=== PATIENT | female | born 1970 | race Caucasian/White ===

== ENCOUNTER 2017-02-05 11:13 | Observation (INO) ==
--- NOTE | 2017-02-05 11:19 | Emergency Department Note ---
Disposition Clinical Impression: Diabetes, Sepsis, UTI (urinary tract infection), Upper abdominal pain, History of gastric bypass, Vomiting, Abnormal EKG, Chest pain Disposition: Admitted As Inpatient Referrals: NO,PCP [Non-Partnered Physician] - General Adult HPI - General Stated complaint: chest pain Time Seen by Provider: 02/05/17 11:18 - History of Present Illness HPI Narrative: 46-year-old female reports to the emergency Department with complaints of chest pain. She has had chest pain in the mid chest rating to the jaw. The pain is pressure-like and is not directly associated to exertion. She developed some vomiting earlier today. She became concerned because she remained persistently tachycardic and her blood pressure was elevated even after taking clonidine. There is no history of headache neck stiffness rash convulsion or confusion or trouble moving the arms or legs independently. There is no history of acute back pain. The patient also complains of abdominal pain, she has known history of gastric bypass with previous revisions and complications per patient. There is no history of bloody emesis or stool. No history of rash. She states she gets frequent UTIs but does not describe urinary symptomatology. There is no history of syncope fall coughing up blood or leg swelling or pain. The patient had a cardiac catheterization years ago secondary to concerns for valvular vegetations, that test was negative per patient. She has also had a recent stress test which was reportedly negative. - Related Data Home Medications Medication Instructions Recorded Confirmed Aspirin Enteric Coated [Aspirin EC] 81 mg PO DAILY 05/30/15 02/05/17 Meclizine [Antivert] 12.5 - 25 mg PO BID PRN 05/30/15 02/05/17 Multivitamin/Iron/Folic Acid 2 tab PO DAILY 05/30/15 02/05/17 [Centrum Complete Multivit Tab] Omeprazole [PriLOSEC] 40 mg PO DAILY 05/30/15 02/05/17 Ondansetron [Zofran] 4 mg PO TID PRN 05/30/15 02/05/17 CloNIDine HCl 0.1 mg PO TID 08/23/15 02/05/17 Ergocalciferol (VITAMIN D2) 50,000 unit PO 2XW 10/24/15 02/05/17 [Vitamin D2 (50,000 UNIT)] Sitagliptin Phosphate [Januvia] 50 mg PO DAILY 11/20/15 02/05/17 Tizanidine HCl [Zanaflex] 4 - 8 mg PO QID PRN 11/20/15 02/05/17 Furosemide [Lasix] 40 mg PO TID 07/04/16 02/05/17 Gabapentin [Neurontin] 600 mg PO TID 07/04/16 02/05/17 Hydroxyzine HCl 25 mg PO TID PRN 07/04/16 02/05/17 Cyanocobalamin (Vitamin B-12) 1,000 mcg SL DAILY 07/05/16 02/05/17 [Vitamin B-12] Chlorthalidone 25 mg PO DAILY 09/19/16 02/05/17 Acetaminophen with Codeine 2 tab PO TID PRN 02/05/17 02/05/17 [Acetaminophen-Cod #4 Tablet] Hydrochlorothiazide 25 mg PO DAILY 02/05/17 02/05/17 Iron Polysaccharide Complex 150 mg PO DAILY 02/05/17 02/05/17 [Ferrex 150] Previous Rx's Medication Instructions Recorded Promethazine [Phenergan] 25 mg PO Q6HR PRN #10 tablet 11/21/15 Allergies Allergy/AdvReac Type Severity Reaction Status Date / Time metoclopramide [From Reglan] Allergy Hallucinati Verified 01/18/17 13:52 ng morphine AdvReac Severe Difficulty Verified 01/18/17 13:52 Breathing pregabalin [From Lyrica] AdvReac Severe Confusion Verified 01/18/17 13:52 prochlorperazine AdvReac Severe Hallucinati Verified 01/18/17 13:52 [From Compazine] ons Cyclobenzaprine AdvReac Intermediate INCREASED Verified 01/18/17 13:52 [From Flexeril] HEARTRATE methocarbamol [From Robaxin] AdvReac Intermediate MIGRAINES Verified 01/18/17 13 :52 pioglitazone [From Actos] AdvReac See Verified 01/18/17 13:52 Comments tape Allergy Rash Uncoded 01/01/17 16:57 steroids AdvReac Hypertensio Uncoded 01/01/17 16:57 n All systems ED: reviewed and negative except as stated. Past Medical History - Past Medical History Medical history: Reports: non-contributory Surgical history: Reports: cholecystectomy, herniorrhaphy, other Psychiatric history: Reports: no psych history [employer] history: Reports: polycystic ovary syndrome - Social History Smoking Status: Never smoker Smokeless Tobacco Status: No Alcohol use: Reports: rarely Drug use: Reports: none Physical Exam - General Limitations: no limitations General appearance: alert, in no apparent distress - Head Head exam: atraumatic, normocephalic, normal inspection - Eye Eye exam: Present: normal appearance, PERRL, EOMI. Absent: scleral icterus, conjunctival injection, miosis, mydriasis - ENT ENT exam: normal exam, normal oropharynx, mucous membranes moist, normal external ear exam - Neck Neck exam: Present: normal inspection, full ROM, trachea midline. Absent: meningismus - Chest Chest inspection: Present: symmetric chest wall rise. Absent: tenderness - Respiratory Respiratory exam: Present: normal lung sounds bilaterally. Absent: respiratory distress, accessory muscle use, prolonged expiratory phase - Cardiovascular Cardiovascular exam: Present: normal rhythm, tachycardia - Abdominal Exam Abdominal exam: Present: soft. Absent: distention, guarding, rebound, rigidity , Brown's sign, Rovsing's sign, tenderness at McBurney's Point, ascites Abdominal tenderness: Present: RUQ, LUQ, epigastrium, mild - Extremities Exam Extremities exam: Present: normal inspection, full ROM, normal capillary refill. Absent: tenderness, pedal edema, joint swelling, calf tenderness - Expanded Lower Extremity Exam Lower leg exam: Absent: Homans' sign Neurovascular/Tendon exam: Present: normal capillary refill. Absent: pulse deficit, motor deficit, sensory deficit, tendon deficit, extremity cold to touch , pallor - Back Exam Back exam: Present: normal inspection, full ROM. Absent: tenderness, CVA tenderness (R), CVA tenderness (L), vertebral tenderness - Neurological Exam Neurological exam: Present: alert, oriented X3, CN II-XII intact. Absent: motor sensory deficit - Psychiatric Psychiatric exam: Present: normal affect, normal mood - Skin Skin exam: Present: warm, dry, intact, normal color. Absent: rash, cyanosis, diaphoresis, erythema, pallor, mottled Course Vital Signs Temperature 98.3 F 02/05/17 11:17 Pulse Rate 122 02/05/17 11:17 Respiratory Rate 16 02/05/17 11:17 Blood Pressure 144/89 02/05/17 11:17 O2 Sat by Pulse Oximetry 100 02/05/17 11:17 Temperature 98.3 F 02/05/17 11:17 Pulse Rate 98 02/05/17 15:30 Respiratory Rate 16 02/05/17 15:30 Blood Pressure 156/92 02/05/17 15:30 O2 Sat by Pulse Oximetry 100 02/05/17 15:30 Oxygen Delivery Oxygen Delivery Room Air Medical Decision Making - [facility] Narrative Medical decision making narrative: The patient was complaining of chest pain, EKG shows sinus tachycardia, troponin negative, chest x-ray negative. Aspirin given. IV access was established. IV fluids as well as Zofran Phenergan and Dilaudid were ordered. The patient complained of abdominal pain as well as tachycardia, abdominal CT shows no acute disease, urinalysis shows changes suggestive of infection. The patient has tachycardia, and elevated white count and a source for infection, she meets sepsis criteria. Rocephin was given. Lactic acid negative. Based on the patient's age, multiple complaints, multiple comorbidities including previous gastric bypass with revision and concerns for vomiting, as well as objective findings suggestive of sepsis, I think it would be best to admit the patient to the hospital. I reviewed the case with the hospitalist on-call who has accepted the patient to their care. The patient is currently stable. - Lab Data Lab results reviewed: Yes I reviewed the patient's lab results. Result diagrams: 02/05/17 12:00 02/05/17 12:00 Lab Results 02/05/17 02/05/17 02/05/17 Range/Units 12:00 12:00 12:00 WBC (4.3-11.1) K/mcL RBC (3.82-4.97) M/mcL Hgb (11.5-15.4) g/dL Hct (35.3-44.9) % MCV (83.0-100.0) fL MCH (28.0-33.3) pg MCHC (31.6-35.5) g/dL RDW (11.5-14.5) % Plt Count (140-400) K/mcL MPV (9.4-12.4) fL Immature Gran % (0-4) % Seg Neutrophils % % Lymphocytes % % Monocytes % % Eosinophils % % Basophils % % Neutrophils # (1.6-8.9) K/mcL Lymphocytes # (0.6-4.6) K/mcL Monocytes # (0.0-1.3) K/mcL Eosinophils # (0.0-0.6) K/mcL Basophils # (0.0-0.2) K/mcL PT 11.6 (9.4-12.1) Seconds INR 1.1 APTT 31.1 (26.0-36.0) Seconds D-Dimer (0-500) ng/mLFEU Sodium (136-145) mEq/L Potassium (3.5-4.5) mEq/L Chloride (98-109) mEq/L Carbon Dioxide (19-29) mEq/L BUN (7-20) mg/dL Creatinine (0.57-1.11) mg/dL Est GFR ( Amer) (> 60) Est GFR (Non-Af Amer) (> 60) BUN/Creatinine Ratio (6-26) Glucose (70-99) mg/dL Calculated Osmolality (280-300) Lactic Acid (0.5-2.2) mmol/L Calcium (8.6-10.8) mg/dL Total Bilirubin 0.6 (0.2-1.2) mg/dL Direct Bilirubin 0.3 (0.0-0.5) mg/dL Indirect Bilirubin 0.3 (0.0-1.2) mg/dL AST 53 H (5-34) Units/L ALT 30 (0-55) Units/L Alkaline Phosphatase 98 (38-126) Units/L Troponin I (0-0.03) ng/mL C-Reactive Protein (Less than 5) mg/L B-Natriuretic Peptide 26 (0-100) pg/mL Serum Total Protein 7.6 (6.0-8.3) g/dL Albumin 3.5 (3.5-5.0) g/dL Globulin 4.1 H (2.4-3.5) g/dL Albumin/Globulin Ratio 0.9 L (1.1-2.2) Lipase (8-78) Units/L TSH (0.350-4.840) mcIU/mL Serum , Qual (Negative) Urine Color (Yellow) Urine Clarity (Clear) Urine pH (5.0-8.0) pH Units Ur Specific [place] (1.010-1.025) Urine Protein (Neg-Trace) mg/dL Urine Glucose (UA) (Normal) mg/dL Urine Ketones (Negative) mg/dL Urine Blood (Negative) Urine Nitrite (Negative) Urine Bilirubin (Negative) Urine Urobilinogen (Normal) mg/dL Ur Leukocyte Esterase (Negative) Urine Microscopic RBC (0-3) per hpf Urine Microscopic WBC (0-3) per hpf Ur Squamous Epith Cells (None-Few) per lpf Urine Bacteria (None-Few) per hpf Urine Opiates Screen (Sqwxob=776) ng/mL Ur Barbiturates Screen (Ackins=165) ng/mL Ur Phencyclidine Scrn (Cutoff=25) ng/mL Ur Amphetamines Screen (Ekuljl=4063) ng/mL U Benzodiazepines Scrn (Bymbtk=804) ng/mL Urine Cocaine Screen (Cutoff= 300) ng/mL U Marijuana (THC) Screen (Cutoff = 50) ng/mL 02/05/17 02/05/17 02/05/17 Range/Units 12:00 12:00 12:00 WBC 11.3 H (4.3-11.1) K/mcL RBC 4.40 (3.82-4.97) M/mcL Hgb 12.8 (11.5-15.4) g/dL Hct 38.9 (35.3-44.9) % MCV 88.4 (83.0-100.0) fL MCH 29.1 (28.0-33.3) pg MCHC 32.9 (31.6-35.5) g/dL RDW 13.2 (11.5-14.5) % Plt Count 229 (140-400) K/mcL MPV 9.2 L (9.4-12.4) fL Immature Gran % 0.6 (0-4) % Seg Neutrophils % 82.2 % Lymphocytes % 11.6 % Monocytes % 4.2 % Eosinophils % 0.8 % Basophils % 0.6 % Neutrophils # 9.3 H (1.6-8.9) K/mcL Lymphocytes # 1.3 (0.6-4.6) K/mcL Monocytes # 0.5 (0.0-1.3) K/mcL Eosinophils # 0.1 (0.0-0.6) K/mcL Basophils # 0.1 (0.0-0.2) K/mcL PT (9.4-12.1) Seconds INR APTT (26.0-36.0) Seconds D-Dimer (0-500) ng/mLFEU Sodium 143 (136-145) mEq/L Potassium 3.6 (3.5-4.5) mEq/L Chloride 103 (98-109) mEq/L Carbon Dioxide 26 (19-29) mEq/L BUN 12 (7-20) mg/dL Creatinine 1.06 (0.57-1.11) mg/dL Est GFR ( Amer) > 60 (> 60) Est GFR (Non-Af Amer) 56 L (> 60) BUN/Creatinine Ratio 11 (6-26) Glucose 119 H (70-99) mg/dL Calculated Osmolality 297 (280-300) Lactic Acid (0.5-2.2) mmol/L Calcium 9.3 (8.6-10.8) mg/dL Total Bilirubin (0.2-1.2) mg/dL Direct Bilirubin (0.0-0.5) mg/dL Indirect Bilirubin (0.0-1.2) mg/dL AST (5-34) Units/L ALT (0-55) Units/L Alkaline Phosphatase (38-126) Units/L Troponin I (0-0.03) ng/mL C-Reactive Protein (Less than 5) mg/L B-Natriuretic Peptide (0-100) pg/mL Serum Total Protein (6.0-8.3) g/dL Albumin (3.5-5.0) g/dL Globulin (2.4-3.5) g/dL Albumin/Globulin Ratio (1.1-2.2) Lipase 18 (8-78) Units/L TSH (0.350-4.840) mcIU/mL Serum , Qual (Negative) Urine Color (Yellow) Urine Clarity (Clear) Urine pH (5.0-8.0) pH Units Ur Specific [place] (1.010-1.025) Urine Protein (Neg-Trace) mg/dL Urine Glucose (UA) (Normal) mg/dL Urine Ketones (Negative) mg/dL Urine Blood (Negative) Urine Nitrite (Negative) Urine Bilirubin (Negative) Urine Urobilinogen (Normal) mg/dL Ur Leukocyte Esterase (Negative) Urine Microscopic RBC (0-3) per hpf Urine Microscopic WBC (0-3) per hpf Ur Squamous Epith Cells (None-Few) per lpf Urine Bacteria (None-Few) per hpf Urine Opiates Screen (Vazbrr=668) ng/mL Ur Barbiturates Screen (Xvkpov=184) ng/mL Ur Phencyclidine Scrn (Cutoff=25) ng/mL Ur Amphetamines Screen (Lpxayq=1773) ng/mL U Benzodiazepines Scrn (Crhlwu=033) ng/mL Urine Cocaine Screen (Cutoff= 300) ng/mL U Marijuana (THC) Screen (Cutoff = 50) ng/mL 02/05/17 02/05/17 02/05/17 Range/Units 12:00 12:00 12:00 WBC (4.3-11.1) K/mcL RBC (3.82-4.97) M/mcL Hgb (11.5-15.4) g/dL Hct (35.3-44.9) % MCV (83.0-100.0) fL MCH (28.0-33.3) pg MCHC (31.6-35.5) g/dL RDW (11.5-14.5) % Plt Count (140-400) K/mcL MPV (9.4-12.4) fL Immature Gran % (0-4) % Seg Neutrophils % % Lymphocytes % % Monocytes % % Eosinophils % % Basophils % % Neutrophils # (1.6-8.9) K/mcL Lymphocytes # (0.6-4.6) K/mcL Monocytes # (0.0-1.3) K/mcL Eosinophils # (0.0-0.6) K/mcL Basophils # (0.0-0.2) K/mcL PT (9.4-12.1) Seconds INR APTT (26.0-36.0) Seconds D-Dimer 258 (0-500) ng/mLFEU Sodium (136-145) mEq/L Potassium (3.5-4.5) mEq/L Chloride (98-109) mEq/L Carbon Dioxide (19-29) mEq/L BUN (7-20) mg/dL Creatinine (0.57-1.11) mg/dL Est GFR ( Amer) (> 60) Est GFR (Non-Af Amer) (> 60) BUN/Creatinine Ratio (6-26) Glucose (70-99) mg/dL Calculated Osmolality (280-300) Lactic Acid (0.5-2.2) mmol/L Calcium (8.6-10.8) mg/dL Total Bilirubin (0.2-1.2) mg/dL Direct Bilirubin (0.0-0.5) mg/dL Indirect Bilirubin (0.0-1.2) mg/dL AST (5-34) Units/L ALT (0-55) Units/L Alkaline Phosphatase (38-126) Units/L Troponin I 0.01 (0-0.03) ng/mL C-Reactive Protein 2 (Less than 5) mg/L B-Natriuretic Peptide (0-100) pg/mL Serum Total Protein (6.0-8.3) g/dL Albumin (3.5-5.0) g/dL Globulin (2.4-3.5) g/dL Albumin/Globulin Ratio (1.1-2.2) Lipase (8-78) Units/L TSH 3.443 (0.350-4.840) mcIU/mL Serum , Qual (Negative) Urine Color (Yellow) Urine Clarity (Clear) Urine pH (5.0-8.0) pH Units Ur Specific [place] (1.010-1.025) Urine Protein (Neg-Trace) mg/dL Urine Glucose (UA) (Normal) mg/dL Urine Ketones (Negative) mg/dL Urine Blood (Negative) Urine Nitrite (Negative) Urine Bilirubin (Negative) Urine Urobilinogen (Normal) mg/dL Ur Leukocyte Esterase (Negative) Urine Microscopic RBC (0-3) per hpf Urine Microscopic WBC (0-3) per hpf Ur Squamous Epith Cells (None-Few) per lpf Urine Bacteria (None-Few) per hpf Urine Opiates Screen (Evkgrh=102) ng/mL Ur Barbiturates Screen (Ffufdq=083) ng/mL Ur Phencyclidine Scrn (Cutoff=25) ng/mL Ur Amphetamines Screen (Yqdfmk=9092) ng/mL U Benzodiazepines Scrn (Sszidv=714) ng/mL Urine Cocaine Screen (Cutoff= 300) ng/mL U Marijuana (THC) Screen (Cutoff = 50) ng/mL 02/05/17 02/05/17 02/05/17 Range/Units 12:00 12:26 12:28 WBC (4.3-11.1) K/mcL RBC (3.82-4.97) M/mcL Hgb (11.5-15.4) g/dL Hct (35.3-44.9) % MCV (83.0-100.0) fL MCH (28.0-33.3) pg MCHC (31.6-35.5) g/dL RDW (11.5-14.5) % Plt Count (140-400) K/mcL MPV (9.4-12.4) fL Immature Gran % (0-4) % Seg Neutrophils % % Lymphocytes % % Monocytes % % Eosinophils % % Basophils % % Neutrophils # (1.6-8.9) K/mcL Lymphocytes # (0.6-4.6) K/mcL Monocytes # (0.0-1.3) K/mcL Eosinophils # (0.0-0.6) K/mcL Basophils # (0.0-0.2) K/mcL PT (9.4-12.1) Seconds INR APTT (26.0-36.0) Seconds D-Dimer (0-500) ng/mLFEU Sodium (136-145) mEq/L Potassium (3.5-4.5) mEq/L Chloride (98-109) mEq/L Carbon Dioxide (19-29) mEq/L BUN (7-20) mg/dL Creatinine (0.57-1.11) mg/dL Est GFR ( Amer) (> 60) Est GFR (Non-Af Amer) (> 60) BUN/Creatinine Ratio (6-26) Glucose (70-99) mg/dL Calculated Osmolality (280-300) Lactic Acid 2.2 (0.5-2.2) mmol/L Calcium (8.6-10.8) mg/dL Total Bilirubin (0.2-1.2) mg/dL Direct Bilirubin (0.0-0.5) mg/dL Indirect Bilirubin (0.0-1.2) mg/dL AST (5-34) Units/L ALT (0-55) Units/L Alkaline Phosphatase (38-126) Units/L Troponin I (0-0.03) ng/mL C-Reactive Protein (Less than 5) mg/L B-Natriuretic Peptide (0-100) pg/mL Serum Total Protein (6.0-8.3) g/dL Albumin (3.5-5.0) g/dL Globulin (2.4-3.5) g/dL Albumin/Globulin Ratio (1.1-2.2) Lipase (8-78) Units/L TSH (0.350-4.840) mcIU/mL Serum , Qual (Negative) Urine Color Yellow (Yellow) Urine Clarity Cloudy A (Clear) Urine pH 6.0 (5.0-8.0) pH Units Ur Specific [place] 1.023 (1.010-1.025) Urine Protein Trace (Neg-Trace) mg/dL Urine Glucose (UA) Normal (Normal) mg/dL Urine Ketones Negative (Negative) mg/dL Urine Blood Trace H (Negative) Urine Nitrite Positive A (Negative) Urine Bilirubin Negative (Negative) Urine Urobilinogen 2.0 H (Normal) mg/dL Ur Leukocyte Esterase Large H (Negative) Urine Microscopic RBC 0-3 (0-3) per hpf Urine Microscopic WBC 50-100 H (0-3) per hpf Ur Squamous Epith Cells Few (None-Few) per lpf Urine Bacteria Moderate H (None-Few) per hpf Urine Opiates Screen Negative (Rwyawl=670) ng/mL Ur Barbiturates Screen Negative (Kpxmzt=283) ng/mL Ur Phencyclidine Scrn Negative (Cutoff=25) ng/mL Ur Amphetamines Screen Negative (Okewgi=0479) ng/mL U Benzodiazepines Scrn Negative (Ngfarg=902) ng/mL Urine Cocaine Screen Negative (Cutoff= 300) ng/mL U Marijuana (THC) Screen Negative (Cutoff = 50) ng/mL 02/05/17 Range/Units 12:30 WBC (4.3-11.1) K/mcL RBC (3.82-4.97) M/mcL Hgb (11.5-15.4) g/dL Hct (35.3-44.9) % MCV (83.0-100.0) fL MCH (28.0-33.3) pg MCHC (31.6-35.5) g/dL RDW (11.5-14.5) % Plt Count (140-400) K/mcL MPV (9.4-12.4) fL Immature Gran % (0-4) % Seg Neutrophils % % Lymphocytes % % Monocytes % % Eosinophils % % Basophils % % Neutrophils # (1.6-8.9) K/mcL Lymphocytes # (0.6-4.6) K/mcL Monocytes # (0.0-1.3) K/mcL Eosinophils # (0.0-0.6) K/mcL Basophils # (0.0-0.2) K/mcL PT (9.4-12.1) Seconds INR APTT (26.0-36.0) Seconds D-Dimer (0-500) ng/mLFEU Sodium (136-145) mEq/L Potassium (3.5-4.5) mEq/L Chloride (98-109) mEq/L Carbon Dioxide (19-29) mEq/L BUN (7-20) mg/dL Creatinine (0.57-1.11) mg/dL Est GFR ( Amer) (> 60) Est GFR (Non-Af Amer) (> 60) BUN/Creatinine Ratio (6-26) Glucose (70-99) mg/dL Calculated Osmolality (280-300) Lactic Acid (0.5-2.2) mmol/L Calcium (8.6-10.8) mg/dL Total Bilirubin (0.2-1.2) mg/dL Direct Bilirubin (0.0-0.5) mg/dL Indirect Bilirubin (0.0-1.2) mg/dL AST (5-34) Units/L ALT (0-55) Units/L Alkaline Phosphatase (38-126) Units/L Troponin I (0-0.03) ng/mL C-Reactive Protein (Less than 5) mg/L B-Natriuretic Peptide (0-100) pg/mL Serum Total Protein (6.0-8.3) g/dL Albumin (3.5-5.0) g/dL Globulin (2.4-3.5) g/dL Albumin/Globulin Ratio (1.1-2.2) Lipase (8-78) Units/L TSH (0.350-4.840) mcIU/mL Serum , Qual Negative (Negative) Urine Color (Yellow) Urine Clarity (Clear) Urine pH (5.0-8.0) pH Units Ur Specific [place] (1.010-1.025) Urine Protein (Neg-Trace) mg/dL Urine Glucose (UA) (Normal) mg/dL Urine Ketones (Negative) mg/dL Urine Blood (Negative) Urine Nitrite (Negative) Urine Bilirubin (Negative) Urine Urobilinogen (Normal) mg/dL Ur Leukocyte Esterase (Negative) Urine Microscopic RBC (0-3) per hpf Urine Microscopic WBC (0-3) per hpf Ur Squamous Epith Cells (None-Few) per lpf Urine Bacteria (None-Few) per hpf Urine Opiates Screen (Ayalqp=257) ng/mL Ur Barbiturates Screen (Wawlvp=171) ng/mL Ur Phencyclidine Scrn (Cutoff=25) ng/mL Ur Amphetamines Screen (Imwgnl=2919) ng/mL U Benzodiazepines Scrn (Dkymfg=204) ng/mL Urine Cocaine Screen (Cutoff= 300) ng/mL U Marijuana (THC) Screen (Cutoff = 50) ng/mL - Radiology Data Radiology results reviewed: Yes I reviewed the patient's radiology results.
[2017-02-05] MEDS ORDERED: Ondansetron ODT 4 MG TAB.RAPDIS SL ONE (11:53)
[2017-02-05] MEDS ORDERED: 0.9 % Sodium Chloride 1,000 ML IVC ONE ×2 (11:53→13:40)
[2017-02-05] MEDS ORDERED: Aspirin 325 MG TABLET PO ONE (11:56)
[2017-02-05 12:14] LABS: Basophils # 0.1 K/mcL (0.0-0.2); Basophils % 0.6 %; Eosinophils # 0.1 K/mcL (0.0-0.6); Eosinophils % 0.8 %; Hematocrit 38.9 % (35.3-44.9); Hemoglobin 12.8 g/dL (11.5-15.4); Immature Granulocytes % 0.6 % (0-4); Lymphocytes # 1.3 K/mcL (0.6-4.6); Lymphocytes % 11.6 %; Mean Corpuscular HGB Conc 32.9 g/dL (31.6-35.5); Mean Corpuscular Hemoglobin 29.1 pg (28.0-33.3); Mean Corpuscular Volume 88.4 fL (83.0-100.0); Mean Platelet Volume 9.2 fL (9.4-12.4); Monocytes # 0.5 K/mcL (0.0-1.3); Monocytes % 4.2 %; Neutrophils # 9.3 K/mcL (1.6-8.9); Platelet Count 229 K/mcL (140-400); Red Cell Distribution Width 13.2 % (11.5-14.5); Segmented Neutrophils % 82.2 %
[2017-02-05 12:28] LABS: BUN/Creatinine Ratio 11 (6-26); Blood Urea Nitrogen 12 mg/dL (7-20); Calcium 9.3 mg/dL (8.6-10.8); Carbon Dioxide 26 mEq/L (19-29); Chloride 103 mEq/L (98-109); Glucose 119 mg/dL (70-99); Osmolality,Calculated 297 (280-300); Potassium 3.6 mEq/L (3.5-4.5); Sodium 143 mEq/L (136-145); eGFR For African Americans > 60 (> 60); eGFR For Non-African Americans 56 (> 60)
[2017-02-05 12:29] LABS: Albumin 3.5 g/dL (3.5-5.0); Albumin/Globulin Ratio 0.9 (1.1-2.2); Bilirubin,Direct 0.3 mg/dL (0.0-0.5); Bilirubin,Indirect 0.3 mg/dL (0.0-1.2); Bilirubin,Total 0.6 mg/dL (0.2-1.2); Globulin 4.1 g/dL (2.4-3.5); Total Protein 7.6 g/dL (6.0-8.3)
[2017-02-05 12:39] LABS: Amphetamine Screen,Urine Negative ng/mL (Cutoff=1000); Barbiturate Screen,Urine Negative ng/mL (Cutoff=200); Benzodiazepines Screen,Urine Negative ng/mL (Cutoff=200); Cannabinoid Screen,Urine Negative ng/mL (Cutoff = 50); Cocaine Screen,Urine Negative ng/mL (Cutoff= 300); Opiate Screen,Urine Negative ng/mL (Cutoff=300); Phencyclidine Screen,Urine Negative ng/mL (Cutoff=25)
[2017-02-05 12:46] LABS: Bilirubin,Urine Negative (Negative); Clarity,Urine Cloudy (Clear); Color,Urine Yellow (Yellow); Glucose,Urine (UA) Normal (Normal)
[2017-02-05 12:47] LABS: Blood,Urine Trace (Negative); Ketones,Urine Negative (Negative); Leukocyte Esterase,Urine Large (Negative); Nitrite,Urine Positive (Negative); Protein,Urine Trace mg/dL (Neg-Trace); Specific Gravity,Urine 1.023 (1.010-1.025)
[2017-02-05 12:59] LABS: Squamous Epithelial Cell,Urine Few per lpf (None-Few); WBC,Urine 50-100 per hpf (0-3)
[2017-02-05 13:00] LABS: RBC,Urine 0-3 per hpf (0-3)
[2017-02-05 13:01] LABS: Bacteria,Urine Moderate per hpf (None-Few)
[2017-02-05 13:15] LABS: Thyroid Stimulating Hormone 3.443 mcIU/mL (0.350-4.840)
[2017-02-05] MEDS ORDERED: Lidocaine -MPF 1% 2 ML VIAL ID PRN (13:56)
[2017-02-05 14:23] LABS: INR 1.1; Prothrombin Time 11.6 Seconds (9.4-12.1)
[2017-02-05 14:26] LABS: Activated Partial Thrombo Time 31.1 Seconds (26.0-36.0)
[2017-02-05] MEDS ORDERED: *HR* Promethazine 25 MG/ML VIAL IVP ONE (15:02)
[2017-02-05] MEDS ORDERED: *HR* HYDROmorphone (PF) 1 MG/ML SYRINGE IVP ONE (15:02)
[2017-02-05] MEDS ORDERED: Acetaminophen 325 MG TABLET PO PRN (17:47)
[2017-02-05] MEDS ORDERED: *HR* HYDROcodone/Acet 5/325 mg TABLET PO PRN (17:47)
[2017-02-05] MEDS ORDERED: Naloxone 0.4 MG/ML INJ IVP PRN (17:47)
[2017-02-05] MEDS ORDERED: D5% in Water 1,000 ML IVC PRN (17:58)
[2017-02-05] MEDS ORDERED: *HR* Dextrose 50 % in Water (Syg) 50 ML SYRINGE IVP PRN (17:58)
[2017-02-05] MEDS ORDERED: Dextrose Gel 15 GM PO PRN ×2 (17:58)
--- NOTE | 2017-02-05 18:25 | Internal Med History&Physical ---
Date of Encounter: 02/05/17 Time of Encounter: 18:18 Assessment and Plan (1) UTI (urinary tract infection) Current visit: Yes Status: Acute Patient presented with abdominal pain, nausea, vomiting, tachycardia, and urinary frequency. Patient reports she's had 6 UTIs since September and was just treated for one less than 3 weeks ago. She reports she's usually treated with bactrim, and was treated with bactrim for her last episode as well. Will treat with Cefepime IVPB BID Qualifiers: Urinary tract infection type: acute cystitis Hematuria presence: with hematuria Qualified Code(s): N30.01 - Acute cystitis with hematuria (2) Chest pain Current visit: No Status: Acute Patient reports heart has been racing the last few days and this morning she developed chest heaviness radiating to her left neck and jaw. Patient reports she has these symptoms with infections. She has a history of PE and non- ischemic cardiomyopathy. She does have a UTI, and symptoms may be related to her infection, but will rule out ACS. Troponin negative at 0.01. D-dimer normal at 258. EKG without ischemic changes continuous surveillance monitor Serial troponins echocardiogram in the [facility] Qualifiers: Chest pain type: precordial pain Qualified Code(s): R07.2 - Precordial pain (3) Hypertension Current visit: No Status: Acute Blood pressure has ranged from 140s-170s since arrival. Hold her diuretics as we are giving her fluids for infection. Continue home dose of clonidine. Qualifiers: Hypertension type: essential hypertension Qualified Code(s): I10 - Essential (primary) hypertension (4) Nausea Current visit: No Status: Acute Patient with chronic nausea since her gastric bypass. zofran prn for nausea phenergan prn for nausea not controlled by zofran (5) History of gastric bypass Current visit: Yes Status: Acute She had complication of bowel obstruction requiring revision in 2013. (6) DVT prophylaxis Current visit: No Status: Acute anti-embolic stockings lovenox 40mg SQ daily Internal Medicine - H&P: HPI Chief complaint: palpitations, chest pain Admitted From: Emergency Dept Plans for Post Hospital Care: Home History of present illness: Ms. Mcdonald is a 46 year old female with hypertension, type 2 diabetes, fibromyalgia, fatty liver, non-ischemic cardiomyopathy, gastric bypass surgery with revision in 2013, presented to the emergency department to day with complaints of feeling her heart racing and chest pain. She reports her heart has been racing on and off over the last few days and she has noted that her blood pressure has been high. Today she developed chest pain she describes as heaviness, constant, radiating to her left neck and jaw. She also reports some mild dizziness, nausea and vomiting and abdominal pain. She has a mild headache. She denies any cough, fever, chills, or shortness of breath. She denies any diarrhea, and reports last bowel movement this morning. She denies dysuria but reports frequency. Evaluation in the ER included CT of the abdomen/ pelvis which showed no acute abnormality in the abdomen or pelvis. CXR showed no acute process. Troponin negative at 0.01, D-dimer normal at 258, BNP normal at 26, lipase normal at 18. WBC mildly elevated to 11.3. She was tachycardic with HR in the low 100s. Lactate mildly elevated to 2.2. UA was consistent with infection. On exam, patient alert and oriented, in no acute distress. Heart had regular rate and rhythm, lungs clear bilaterally to auscultation. She has some mild tenderness to the RUQ and right flank. Past Med Surg Social Fam HX - Past Medical History Medical history: cardiomyopathy, diabetes, fibromyalgia, hypertension, liver disease (fatty liver), pulmonary embolus Psychiatric history: no psych history - Past Surgical History Surgical History: cholecystectomy, herniorrhaphy, other, bariatric surgery ( gastric bypass, with revision in 2013) - Social History Smoking Status: Never smoker Smokeless Tobacco Status: No Alcohol use: rarely Drug use: none - Family History Father Hx Family Cardiac Disorders: Yes (HTN) Hx Family Respiratory Disorders: Yes (COPD) Grandfather Hx Family Cardiac Disorders: Yes (HTN, BYPASS) Grandmother Hx Family Cardiac Disorders: Yes (CVA) Hx Family Neuromuscular Disorders: Yes (CVA) Hx Family Neurologic Disorders: Yes (CVA) Internal Medicine - H&P: Meds Aspirin Enteric Coated [Aspirin EC] 81 mg PO DAILY 05/30/15 [History] Meclizine [Antivert] 12.5 - 25 mg PO BID PRN 05/30/15 [History] Multivitamin/Iron/Folic Acid [Centrum Complete Multivit Tab] 2 tab PO DAILY [History] Omeprazole [PriLOSEC] 40 mg PO DAILY 05/30/15 [History] Ondansetron [Zofran] 4 mg PO TID PRN 05/30/15 [History] CloNIDine HCl 0.1 mg PO TID 08/23/15 [History] Ergocalciferol (VITAMIN D2) [Vitamin D2 (50,000 UNIT)] 50,000 unit PO 2XW [History] Sitagliptin Phosphate [Januvia] 50 mg PO DAILY 11/20/15 [History] Tizanidine HCl [Zanaflex] 4 - 8 mg PO QID PRN 11/20/15 [History] Promethazine [Phenergan] 25 mg PO Q6HR PRN #10 tablet 11/21/15 [Rx] Furosemide [Lasix] 40 mg PO TID 07/04/16 [History] Gabapentin [Neurontin] 600 mg PO TID 07/04/16 [History] Hydroxyzine HCl 25 mg PO TID PRN 07/04/16 [History] Cyanocobalamin (Vitamin B-12) [Vitamin B-12] 1,000 mcg SL DAILY 07/05/16 [ History] Chlorthalidone 25 mg PO DAILY 09/19/16 [History] Acetaminophen with Codeine [Acetaminophen-Cod #4 Tablet] 2 tab PO TID PRN [History] Hydrochlorothiazide 25 mg PO DAILY 02/05/17 [History] Iron Polysaccharide Complex [Ferrex 150] 150 mg PO DAILY 02/05/17 [History] Allergies metoclopramide [From Reglan] Allergy (Verified 01/18/17 13:52) Hallucinating morphine Adverse Reaction (Severe, Verified 01/18/17 13:52) Difficulty Breathing SHORTNESS OF BREATH pregabalin [From Lyrica] Adverse Reaction (Severe, Verified 01/18/17 13:52) Confusion prochlorperazine [From Compazine] Adverse Reaction (Severe, Verified 01/18/17 13 :52) Hallucinations Cyclobenzaprine [From Flexeril] Adverse Reaction (Intermediate, Verified 13:52) INCREASED HEARTRATE methocarbamol [From Robaxin] Adverse Reaction (Intermediate, Verified 01/18/17 13:52) MIGRAINES pioglitazone [From Actos] Adverse Reaction (Verified 01/18/17 13:52) See Comments unknown tape Allergy (Uncoded 01/01/17 16:57) Rash steroids Adverse Reaction (Uncoded 01/01/17 16:57) Hypertension All Systems PM: A 10-system review of systems was performed and is negative for pertinent findings except as documented above in the HPI. - Constitutional Constitutional: no chills, no fever(s), no night sweats - EENT Eyes: no change in vision, no discharge, no pain, no photophobia Ears: no ear discharge, no ear pain, no tinnitus Nose, mouth and throat: no dysphagia, no nasal discharge, no neck pain, no sore throat - Cardiovascular Cardiovascular ROS IM: chest pain, palpitations, no diaphoresis, no dyspnea, no lightheadedness, no syncope - Respiratory Respiratory: no cough, no dyspnea, no wheezing, no excessive phlegm production - Gastrointestinal Gastrointestinal: abdominal pain, nausea, vomiting, no diarrhea, no hematemesis , no hematochezia, no melena - Genitourinary Genitourinary: urinary frequency, no change in urinary stream, no dysuria, no flank pain, no hematuria - Musculoskeletal Musculoskeletal ROS IM: no numbness, no tingling - Integumentary Integumentary IM: no rash, no unusual bruising - Neurological Neurological ROS: no confusion, no convulsions, no focal weakness, no numbness, no tingling, no tremor(s) - Hematologic/Lymphatic Hematologic/Lymphatic: no easy bruising - Constitutional Vitals: Temp Pulse Resp BP Pulse Ox 98.2 F 95 16 150/92 93 02/05/17 17:04 02/05/17 17:04 02/05/17 17:04 02/05/17 17:04 02/05/17 17:04 General appearance: Present: A&O X 3, pleasant, no acute distress, obese - Head Head exam: Present: atraumatic, normocephalic - Eye Eye exam: Present: PERRL, conjuntiva pink, sclera anicteric Pupils: Present: PERRL - Neck Neck exam general surgery: Present: supple, trachea midline. Absent: lymphadenopathy - Respiratory Respiratory exam: Present: CTAB. Absent: accessory muscle use, rales, rhonchi, wheezes - Cardiovascular Cardiovascular exam: Present: RRR, +S1, +S2. Absent: diastolic murmur, gallop, rubs, systolic murmur - GI/Abdominal GI/Abdominal exam: Present: normal bowel sounds, soft, tenderness (RUQ), no peritoneal signs. Absent: distended - Extremities Exam Extremities exam: Present: warm, radial pulses palpable and symetrical. Absent : calf tenderness, cyanotic, pedal edema - Back Exam Back exam: Present: CVA tenderness (R) - Neurological Exam Neurological exam: Present: CN II-XII intact, oriented X3, no focal deficits. Absent: facial droop, speech deficit - Skin Skin exam: Present: dry, intact Internal Med - H&P Results - Labs CBC & Chem 7: 02/05/17 12:00 02/05/17 12:00 Labs: All Lab Results (24 Hours) 02/05/17 02/05/17 02/05/17 Range/Units 12:00 12:00 12:00 WBC (4.3-11.1) K/mcL RBC (3.82-4.97) M/mcL Hgb (11.5-15.4) g/dL Hct (35.3-44.9) % MCV (83.0-100.0) fL MCH (28.0-33.3) pg MCHC (31.6-35.5) g/dL RDW (11.5-14.5) % Plt Count (140-400) K/mcL MPV (9.4-12.4) fL Immature Gran % (0-4) % Seg Neutrophils % % Lymphocytes % % Monocytes % % Eosinophils % % Basophils % % Neutrophils # (1.6-8.9) K/mcL Lymphocytes # (0.6-4.6) K/mcL Monocytes # (0.0-1.3) K/mcL Eosinophils # (0.0-0.6) K/mcL Basophils # (0.0-0.2) K/mcL PT 11.6 (9.4-12.1) Seconds INR 1.1 APTT 31.1 (26.0-36.0) Seconds D-Dimer (0-500) ng/mLFEU Sodium (136-145) mEq/L Potassium (3.5-4.5) mEq/L Chloride (98-109) mEq/L Carbon Dioxide (19-29) mEq/L BUN (7-20) mg/dL Creatinine (0.57-1.11) mg/dL Est GFR ( Amer) (> 60) Est GFR (Non-Af Amer) (> 60) BUN/Creatinine Ratio (6-26) Glucose (70-99) mg/dL Calculated Osmolality (280-300) Lactic Acid (0.5-2.2) mmol/L Calcium (8.6-10.8) mg/dL Total Bilirubin 0.6 (0.2-1.2) mg/dL Direct Bilirubin 0.3 (0.0-0.5) mg/dL Indirect Bilirubin 0.3 (0.0-1.2) mg/dL AST 53 H (5-34) Units/L ALT 30 (0-55) Units/L Alkaline Phosphatase 98 (38-126) Units/L Troponin I (0-0.03) ng/mL C-Reactive Protein (Less than 5) mg/L B-Natriuretic Peptide 26 (0-100) pg/mL Serum Total Protein 7.6 (6.0-8.3) g/dL Albumin 3.5 (3.5-5.0) g/dL Globulin 4.1 H (2.4-3.5) g/dL Albumin/Globulin Ratio 0.9 L (1.1-2.2) Lipase (8-78) Units/L TSH (0.350-4.840) mcIU/mL Serum , Qual (Negative) Urine Color (Yellow) Urine Clarity (Clear) Urine pH (5.0-8.0) pH Units Ur Specific [place] (1.010-1.025) Urine Protein (Neg-Trace) mg/dL Urine Glucose (UA) (Normal) mg/dL Urine Ketones (Negative) mg/dL Urine Blood (Negative) Urine Nitrite (Negative) Urine Bilirubin (Negative) Urine Urobilinogen (Normal) mg/dL Ur Leukocyte Esterase (Negative) Urine Microscopic RBC (0-3) per hpf Urine Microscopic WBC (0-3) per hpf Ur Squamous Epith Cells (None-Few) per lpf Urine Bacteria (None-Few) per hpf Urine Opiates Screen (Swhewv=225) ng/mL Ur Barbiturates Screen (Vbhhfy=024) ng/mL Ur Phencyclidine Scrn (Cutoff=25) ng/mL Ur Amphetamines Screen (Yrzblq=2132) ng/mL U Benzodiazepines Scrn (Kkolvr=652) ng/mL Urine Cocaine Screen (Cutoff= 300) ng/mL U Marijuana (THC) Screen (Cutoff = 50) ng/mL 02/05/17 02/05/17 02/05/17 Range/Units 12:00 12:00 12:00 WBC 11.3 H (4.3-11.1) K/mcL RBC 4.40 (3.82-4.97) M/mcL Hgb 12.8 (11.5-15.4) g/dL Hct 38.9 (35.3-44.9) % MCV 88.4 (83.0-100.0) fL MCH 29.1 (28.0-33.3) pg MCHC 32.9 (31.6-35.5) g/dL RDW 13.2 (11.5-14.5) % Plt Count 229 (140-400) K/mcL MPV 9.2 L (9.4-12.4) fL Immature Gran % 0.6 (0-4) % Seg Neutrophils % 82.2 % Lymphocytes % 11.6 % Monocytes % 4.2 % Eosinophils % 0.8 % Basophils % 0.6 % Neutrophils # 9.3 H (1.6-8.9) K/mcL Lymphocytes # 1.3 (0.6-4.6) K/mcL Monocytes # 0.5 (0.0-1.3) K/mcL Eosinophils # 0.1 (0.0-0.6) K/mcL Basophils # 0.1 (0.0-0.2) K/mcL PT (9.4-12.1) Seconds INR APTT (26.0-36.0) Seconds D-Dimer (0-500) ng/mLFEU Sodium 143 (136-145) mEq/L Potassium 3.6 (3.5-4.5) mEq/L Chloride 103 (98-109) mEq/L Carbon Dioxide 26 (19-29) mEq/L BUN 12 (7-20) mg/dL Creatinine 1.06 (0.57-1.11) mg/dL Est GFR ( Amer) > 60 (> 60) Est GFR (Non-Af Amer) 56 L (> 60) BUN/Creatinine Ratio 11 (6-26) Glucose 119 H (70-99) mg/dL Calculated Osmolality 297 (280-300) Lactic Acid (0.5-2.2) mmol/L Calcium 9.3 (8.6-10.8) mg/dL Total Bilirubin (0.2-1.2) mg/dL Direct Bilirubin (0.0-0.5) mg/dL Indirect Bilirubin (0.0-1.2) mg/dL AST (5-34) Units/L ALT (0-55) Units/L Alkaline Phosphatase (38-126) Units/L Troponin I (0-0.03) ng/mL C-Reactive Protein (Less than 5) mg/L B-Natriuretic Peptide (0-100) pg/mL Serum Total Protein (6.0-8.3) g/dL Albumin (3.5-5.0) g/dL Globulin (2.4-3.5) g/dL Albumin/Globulin Ratio (1.1-2.2) Lipase 18 (8-78) Units/L TSH (0.350-4.840) mcIU/mL Serum , Qual (Negative) Urine Color (Yellow) Urine Clarity (Clear) Urine pH (5.0-8.0) pH Units Ur Specific [place] (1.010-1.025) Urine Protein (Neg-Trace) mg/dL Urine Glucose (UA) (Normal) mg/dL Urine Ketones (Negative) mg/dL Urine Blood (Negative) Urine Nitrite (Negative) Urine Bilirubin (Negative) Urine Urobilinogen (Normal) mg/dL Ur Leukocyte Esterase (Negative) Urine Microscopic RBC (0-3) per hpf Urine Microscopic WBC (0-3) per hpf Ur Squamous Epith Cells (None-Few) per lpf Urine Bacteria (None-Few) per hpf Urine Opiates Screen (Yftboz=127) ng/mL Ur Barbiturates Screen (Msxtfj=616) ng/mL Ur Phencyclidine Scrn (Cutoff=25) ng/mL Ur Amphetamines Screen (Shpzly=2665) ng/mL U Benzodiazepines Scrn (Amcwgb=715) ng/mL Urine Cocaine Screen (Cutoff= 300) ng/mL U Marijuana (THC) Screen (Cutoff = 50) ng/mL 02/05/17 02/05/17 02/05/17 Range/Units 12:00 12:00 12:00 WBC (4.3-11.1) K/mcL RBC (3.82-4.97) M/mcL Hgb (11.5-15.4) g/dL Hct (35.3-44.9) % MCV (83.0-100.0) fL MCH (28.0-33.3) pg MCHC (31.6-35.5) g/dL RDW (11.5-14.5) % Plt Count (140-400) K/mcL MPV (9.4-12.4) fL Immature Gran % (0-4) % Seg Neutrophils % % Lymphocytes % % Monocytes % % Eosinophils % % Basophils % % Neutrophils # (1.6-8.9) K/mcL Lymphocytes # (0.6-4.6) K/mcL Monocytes # (0.0-1.3) K/mcL Eosinophils # (0.0-0.6) K/mcL Basophils # (0.0-0.2) K/mcL PT (9.4-12.1) Seconds INR APTT (26.0-36.0) Seconds D-Dimer 258 (0-500) ng/mLFEU Sodium (136-145) mEq/L Potassium (3.5-4.5) mEq/L Chloride (98-109) mEq/L Carbon Dioxide (19-29) mEq/L BUN (7-20) mg/dL Creatinine (0.57-1.11) mg/dL Est GFR ( Amer) (> 60) Est GFR (Non-Af Amer) (> 60) BUN/Creatinine Ratio (6-26) Glucose (70-99) mg/dL Calculated Osmolality (280-300) Lactic Acid (0.5-2.2) mmol/L Calcium (8.6-10.8) mg/dL Total Bilirubin (0.2-1.2) mg/dL Direct Bilirubin (0.0-0.5) mg/dL Indirect Bilirubin (0.0-1.2) mg/dL AST (5-34) Units/L ALT (0-55) Units/L Alkaline Phosphatase (38-126) Units/L Troponin I 0.01 (0-0.03) ng/mL C-Reactive Protein 2 (Less than 5) mg/L B-Natriuretic Peptide (0-100) pg/mL Serum Total Protein (6.0-8.3) g/dL Albumin (3.5-5.0) g/dL Globulin (2.4-3.5) g/dL Albumin/Globulin Ratio (1.1-2.2) Lipase (8-78) Units/L TSH 3.443 (0.350-4.840) mcIU/mL Serum , Qual (Negative) Urine Color (Yellow) Urine Clarity (Clear) Urine pH (5.0-8.0) pH Units Ur Specific [place] (1.010-1.025) Urine Protein (Neg-Trace) mg/dL Urine Glucose (UA) (Normal) mg/dL Urine Ketones (Negative) mg/dL Urine Blood (Negative) Urine Nitrite (Negative) Urine Bilirubin (Negative) Urine Urobilinogen (Normal) mg/dL Ur Leukocyte Esterase (Negative) Urine Microscopic RBC (0-3) per hpf Urine Microscopic WBC (0-3) per hpf Ur Squamous Epith Cells (None-Few) per lpf Urine Bacteria (None-Few) per hpf Urine Opiates Screen (Celfrq=526) ng/mL Ur Barbiturates Screen (Hkielx=731) ng/mL Ur Phencyclidine Scrn (Cutoff=25) ng/mL Ur Amphetamines Screen (Xmzwvo=0603) ng/mL U Benzodiazepines Scrn (Miroad=600) ng/mL Urine Cocaine Screen (Cutoff= 300) ng/mL U Marijuana (THC) Screen (Cutoff = 50) ng/mL 02/05/17 02/05/17 02/05/17 Range/Units 12:00 12:26 12:28 WBC (4.3-11.1) K/mcL RBC (3.82-4.97) M/mcL Hgb (11.5-15.4) g/dL Hct (35.3-44.9) % MCV (83.0-100.0) fL MCH (28.0-33.3) pg MCHC (31.6-35.5) g/dL RDW (11.5-14.5) % Plt Count (140-400) K/mcL MPV (9.4-12.4) fL Immature Gran % (0-4) % Seg Neutrophils % % Lymphocytes % % Monocytes % % Eosinophils % % Basophils % % Neutrophils # (1.6-8.9) K/mcL Lymphocytes # (0.6-4.6) K/mcL Monocytes # (0.0-1.3) K/mcL Eosinophils # (0.0-0.6) K/mcL Basophils # (0.0-0.2) K/mcL PT (9.4-12.1) Seconds INR APTT (26.0-36.0) Seconds D-Dimer (0-500) ng/mLFEU Sodium (136-145) mEq/L Potassium (3.5-4.5) mEq/L Chloride (98-109) mEq/L Carbon Dioxide (19-29) mEq/L BUN (7-20) mg/dL Creatinine (0.57-1.11) mg/dL Est GFR ( Amer) (> 60) Est GFR (Non-Af Amer) (> 60) BUN/Creatinine Ratio (6-26) Glucose (70-99) mg/dL Calculated Osmolality (280-300) Lactic Acid 2.2 (0.5-2.2) mmol/L Calcium (8.6-10.8) mg/dL Total Bilirubin (0.2-1.2) mg/dL Direct Bilirubin (0.0-0.5) mg/dL Indirect Bilirubin (0.0-1.2) mg/dL AST (5-34) Units/L ALT (0-55) Units/L Alkaline Phosphatase (38-126) Units/L Troponin I (0-0.03) ng/mL C-Reactive Protein (Less than 5) mg/L B-Natriuretic Peptide (0-100) pg/mL Serum Total Protein (6.0-8.3) g/dL Albumin (3.5-5.0) g/dL Globulin (2.4-3.5) g/dL Albumin/Globulin Ratio (1.1-2.2) Lipase (8-78) Units/L TSH (0.350-4.840) mcIU/mL Serum , Qual (Negative) Urine Color Yellow (Yellow) Urine Clarity Cloudy A (Clear) Urine pH 6.0 (5.0-8.0) pH Units Ur Specific [place] 1.023 (1.010-1.025) Urine Protein Trace (Neg-Trace) mg/dL Urine Glucose (UA) Normal (Normal) mg/dL Urine Ketones Negative (Negative) mg/dL Urine Blood Trace H (Negative) Urine Nitrite Positive A (Negative) Urine Bilirubin Negative (Negative) Urine Urobilinogen 2.0 H (Normal) mg/dL Ur Leukocyte Esterase Large H (Negative) Urine Microscopic RBC 0-3 (0-3) per hpf Urine Microscopic WBC 50-100 H (0-3) per hpf Ur Squamous Epith Cells Few (None-Few) per lpf Urine Bacteria Moderate H (None-Few) per hpf Urine Opiates Screen Negative (Jhovim=102) ng/mL Ur Barbiturates Screen Negative (Xupbtc=409) ng/mL Ur Phencyclidine Scrn Negative (Cutoff=25) ng/mL Ur Amphetamines Screen Negative (Rdohjt=2689) ng/mL U Benzodiazepines Scrn Negative (Gftwca=203) ng/mL Urine Cocaine Screen Negative (Cutoff= 300) ng/mL U Marijuana (THC) Screen Negative (Cutoff = 50) ng/mL 02/05/17 Range/Units 12:30 WBC (4.3-11.1) K/mcL RBC (3.82-4.97) M/mcL Hgb (11.5-15.4) g/dL Hct (35.3-44.9) % MCV (83.0-100.0) fL MCH (28.0-33.3) pg MCHC (31.6-35.5) g/dL RDW (11.5-14.5) % Plt Count (140-400) K/mcL MPV (9.4-12.4) fL Immature Gran % (0-4) % Seg Neutrophils % % Lymphocytes % % Monocytes % % Eosinophils % % Basophils % % Neutrophils # (1.6-8.9) K/mcL Lymphocytes # (0.6-4.6) K/mcL Monocytes # (0.0-1.3) K/mcL Eosinophils # (0.0-0.6) K/mcL Basophils # (0.0-0.2) K/mcL PT (9.4-12.1) Seconds INR APTT (26.0-36.0) Seconds D-Dimer (0-500) ng/mLFEU Sodium (136-145) mEq/L Potassium (3.5-4.5) mEq/L Chloride (98-109) mEq/L Carbon Dioxide (19-29) mEq/L BUN (7-20) mg/dL Creatinine (0.57-1.11) mg/dL Est GFR ( Amer) (> 60) Est GFR (Non-Af Amer) (> 60) BUN/Creatinine Ratio (6-26) Glucose (70-99) mg/dL Calculated Osmolality (280-300) Lactic Acid (0.5-2.2) mmol/L Calcium (8.6-10.8) mg/dL Total Bilirubin (0.2-1.2) mg/dL Direct Bilirubin (0.0-0.5) mg/dL Indirect Bilirubin (0.0-1.2) mg/dL AST (5-34) Units/L ALT (0-55) Units/L Alkaline Phosphatase (38-126) Units/L Troponin I (0-0.03) ng/mL C-Reactive Protein (Less than 5) mg/L B-Natriuretic Peptide (0-100) pg/mL Serum Total Protein (6.0-8.3) g/dL Albumin (3.5-5.0) g/dL Globulin (2.4-3.5) g/dL Albumin/Globulin Ratio (1.1-2.2) Lipase (8-78) Units/L TSH (0.350-4.840) mcIU/mL Serum , Qual Negative (Negative) Urine Color (Yellow) Urine Clarity (Clear) Urine pH (5.0-8.0) pH Units Ur Specific [place] (1.010-1.025) Urine Protein (Neg-Trace) mg/dL Urine Glucose (UA) (Normal) mg/dL Urine Ketones (Negative) mg/dL Urine Blood (Negative) Urine Nitrite (Negative) Urine Bilirubin (Negative) Urine Urobilinogen (Normal) mg/dL Ur Leukocyte Esterase (Negative) Urine Microscopic RBC (0-3) per hpf Urine Microscopic WBC (0-3) per hpf Ur Squamous Epith Cells (None-Few) per lpf Urine Bacteria (None-Few) per hpf Urine Opiates Screen (Ikbxxv=053) ng/mL Ur Barbiturates Screen (Sfqocx=733) ng/mL Ur Phencyclidine Scrn (Cutoff=25) ng/mL Ur Amphetamines Screen (Lxmqnc=0052) ng/mL U Benzodiazepines Scrn (Bairge=080) ng/mL Urine Cocaine Screen (Cutoff= 300) ng/mL U Marijuana (THC) Screen (Cutoff = 50) ng/mL - Diagnostic Studies Chest x-ray Additional comments: Chest X-Ray 02/05/17 11:20 IMPRESSION: No acute process. D/ / Garth Apple MD / Garth Apple MD Interpreting Provider: Garth Apple MD CT scan - abdomen Additional comments: Abdomen/Pelvis CT 02/05/17 11:54 IMPRESSION: 1. No acute abnormality in the abdomen or pelvis. 2. Status post gastric bypass surgery without complication. 3. Diffuse hepatic steatosis for 4. Status post cholecystectomy. D/ / John Mata MD / John Mata MD Interpreting Provider: John Mata MD
--- NOTE | 2017-02-05 18:31 | Event Note ---
Date of Encounter: 02/05/17 Time of Encounter: 18:29 Patient seen and examined with nurse practitioner. Agree with assessment and plan. Urine tract infection. Received course of Bactrim 3 weeks ago for UTI. We will keep patient on cefepime. await urine Culture, hydation.
[2017-02-05] MEDS: cloNIDine HCl 0.1 MG TABLET PO SCH ×2 (19:01→20:35)
[2017-02-05] MEDS: Gabapentin 300 MG CAPSULE PO SCH ×2 (19:02→20:35)
[2017-02-05] MEDS: 0.9 % Sodium Chloride 1,000 ML IVC SCH (19:17)
[2017-02-05] MEDS: Cefepime HCl 1,000 MG in D5% in Water (Mini-Bag+) 100 ML IVPB SCH (19:18)
[2017-02-05] MEDS: *HR* HYDROmorphone (PF) 1 MG/ML SYRINGE IVP PRN (19:35)
[2017-02-05] MEDS ORDERED: Furosemide 40 MG TABLET PO SCH (21:00)
[2017-02-05] MEDS: Insulin LISPRO 300 UNITS/3 ML VIAL SQ SCH (22:59)
[2017-02-05] MEDS: tiZANidine 4 MG TABLET PO PRN (23:04)
[2017-02-06] MEDS: *HR* HYDROmorphone (PF) 1 MG/ML SYRINGE IVP PRN ×6 (00:17→22:01)
[2017-02-06] MEDS: Ondansetron ODT 4 MG TAB.RAPDIS SL PRN ×3 (00:18→22:00)
[2017-02-06] MEDS: tiZANidine 4 MG TABLET PO PRN ×3 (04:07→22:00)
[2017-02-06 04:53] LABS: Basophils # 0.1 K/mcL (0.0-0.2); Basophils % 0.6 %; Eosinophils # 0.2 K/mcL (0.0-0.6); Eosinophils % 2.4 %; Hematocrit 34.9 % (35.3-44.9); Immature Granulocytes % 0.9 % (0-4); Lymphocytes # 2.6 K/mcL (0.6-4.6); Lymphocytes % 32.3 %; Mean Corpuscular HGB Conc 31.8 g/dL (31.6-35.5); Mean Corpuscular Hemoglobin 29.4 pg (28.0-33.3); Mean Corpuscular Volume 92.3 fL (83.0-100.0); Mean Platelet Volume 10.2 fL (9.4-12.4); Monocytes # 0.4 K/mcL (0.0-1.3); Monocytes % 4.7 %; Neutrophils # 4.7 K/mcL (1.6-8.9); Platelet Count 217 K/mcL (140-400); Red Blood Count 3.78 M/mcL (3.82-4.97); Red Cell Distribution Width 13.3 % (11.5-14.5); Segmented Neutrophils % 59.1 %
[2017-02-06 04:58] LABS: BUN/Creatinine Ratio 10 (6-26); Blood Urea Nitrogen 8 mg/dL (7-20); Calcium 8.4 mg/dL (8.6-10.8); Carbon Dioxide 26 mEq/L (19-29); Chloride 105 mEq/L (98-109); Glucose 114 mg/dL (70-99); Osmolality,Calculated 295 (280-300); Potassium 3.2 mEq/L (3.5-4.5); Sodium 143 mEq/L (136-145); eGFR For African Americans > 60 (> 60); eGFR For Non-African Americans > 60 (> 60)
[2017-02-06 05:00] LABS: Hemoglobin 11.1 g/dL (11.5-15.4)
[2017-02-06] MEDS: Cefepime HCl 1,000 MG in D5% in Water (Mini-Bag+) 100 ML IVPB SCH ×2 (06:10→17:57)
[2017-02-06] MEDS: 0.9 % Sodium Chloride 1,000 ML IVC SCH ×3 (06:12→23:00)
[2017-02-06] MEDS: *HR* Enoxaparin 40 MG/0.4 ML SYRINGE SQ SCH (06:17)
[2017-02-06] MEDS: Insulin LISPRO 300 UNITS/3 ML VIAL SQ SCH ×4 (07:32→22:03)
[2017-02-06] MEDS: Aspirin Enteric Coated 81 MG Tablet PO SCH (08:29)
[2017-02-06] MEDS: Gabapentin 300 MG CAPSULE PO SCH ×3 (08:29→20:18)
[2017-02-06] MEDS ORDERED: Potassium Chloride Elixir 20 MEQ/15 ML UDC PO ONE (08:29)
[2017-02-06] MEDS: Iron Polysaccharide Complex 150 MG CAPSULE PO SCH (08:29)
[2017-02-06] MEDS: Cyanocobalamin (B-12) 1,000 MCG TABLET PO SCH (08:30)
[2017-02-06] MEDS: cloNIDine HCl 0.1 MG TABLET PO SCH ×3 (08:30→20:18)
[2017-02-06] MEDS ORDERED: hydroCHLOROthiazide 25 MG TABLET PO SCH (09:00)
--- NOTE | 2017-02-06 13:03 | ECHO - Doppler Report ---
Echocardiogram Name: Janett Mcdonald Date of Study: 02/06/2017 Date: 1970 Ht: 64.0 in Medical Record#: [id number] Age: 47 Wt: 195.0 lb Gender: Female BSA: 1.94 Order #: [id number] Location: [facility] Room #: [id number] Reading Physician: Alexander Beard MD, [facility] Rn Bariatric: José Miguel Gentile RDCS Ordering Physician: Garima Carlisle CNP Primary Physician: Shahriar Bejarano MD Indications: Chest pain Impressions: LVEF 60-65%. Normal left ventricular diastolic function. No significant valvular dysfunction. Left Ventricular Wall Motion: Rest Echo Findings All wall segments showed normal motion. Findings: Study Quality * Technically adequate exam. Right Ventricle * Normal right ventricular structure and function. Left Atrium * Normal left atrial size. Aortic Valve * Trileaflet aortic valve with normal function. Mitral Valve * Normal mitral valve structure and function. Aorta * Normally sized aortic root. Pericardium * The pericardium appears normal. ECG Findings * Normal sinus rhythm. Left Ventricle * LVEF 60-65%. * Normal left ventricular diastolic function. * No segmental dysfunction. * Normal LV chamber size, wall thickness and function. Tricuspid Valve * Trace tricuspid regurgitation. * No tricuspid stenosis. * Unable to estimate RVSP due to lack of TR jet. Pulmonic Valve * Pulmonic valve not well visualized. * No pulmonic regurgitation. * No pulmonic stenosis. Right Atrium * Right atrium is not well visualized. IVC * The IVC is not well evaluated. Interatrial Septum * Interatrial septum not well evaluated. History Hypertension Diabetes Family History of CAD 02/28/15 a Previous Echo was performed. Measurements: BP: 126/ 74 2D Normal Values RVIDd: 2.93 cm <2.7 cm IVSd: 1.11 cm 0.6 - 1.0 cm LVIDd: 3.49 cm 3.7 - 5.6 cm LVPWd: 1.04 cm 0.6 - 1.1 cm LVIDs: 2.12 cm 1.5 - 3.6 cm AO: 2.60 cm < 4.0 cm LA: 3.40 cm 2.0 - 4.0cm %FS: 39.30 cm >25 % LA volume: 44 Mitral Valve Peak E:.97 m/sec Peak A:.71 m/sec E/A Ratio:1.4 Peak E' Lat Maulik:11 cm/s Peak E' Med Maulik:5.98 cm/s E/E' Lat Ratio:8.8 E/E' Med Ratio:16.2 Tricuspid Valve TV Regurg Peak Grad: 12.00mmHg TV Regurg Peak Maulik: 1.70m/sec Updated by Alexander Beard MD, [facility] on 02/06/2017 1:00:10 PM electronically signed on 02/06/2017 1:00:24 PM with status of [employer]: 1=Normal, 2=Hypokinesis, 3=Akinesis, 4=Dyskinesis, 5=Aneurysmal, 6=Hyperkinetic, X=Not Visualized (Blank)=Missing
--- NOTE | 2017-02-06 14:28 | Internal Med Progress Note ---
Date of Encounter: 02/06/17 Time of Encounter: 14:26 - Assessment and plan (1) UTI (urinary tract infection) Current Visit: Yes Status: Acute Assessment and plan: Patient is noted to have recurrent urinary infections. Urinalysis suggestive of UTI and patient does have chills, palpitations and some abdominal pain. Continue IV antibiotics and follow up urine cultures. Previous urine cultures have all grown Escherichia coli, sensitive to cephalosporins. We will consult urology for further workup. Qualifiers: Urinary tract infection type: acute cystitis Hematuria presence: with hematuria Qualified Code(s): N30.01 - Acute cystitis with hematuria (2) Chest pain Current Visit: Yes Status: Acute Assessment and plan: Unlikely cardiac pain. EKG and telemetry monitoring remained uneventful. Serial troponins are negative for ACS. Patient has had previous left heart catheterization revealing normal coronaries in 2012. She underwent nuclear stress test in 2016 that showed no evidence of ischemia or infarcts. Continue supportive care. Qualifiers: Chest pain type: precordial pain Qualified Code(s): R07.2 - Precordial pain (3) Fibromyalgia Current Visit: Yes Status: Chronic Assessment and plan: Continue home medications. (4) Hypertension Current Visit: Yes Status: Chronic Assessment and plan: Blood pressure noted to be well controlled. Resume home medications. Qualifiers: Hypertension type: essential hypertension Qualified Code(s): I10 - Essential (primary) hypertension (5) Obesity Current Visit: Yes Status: Chronic Qualifiers: Obesity type: unspecified obesity type Obesity severity: non-morbid Qualified Code(s): E66.9 - Obesity, unspecified (6) Diabetes Current Visit: Yes Status: Chronic Assessment and plan: Accu-Chek blood glucose monitoring with sliding scale insulin. Diabetic diet. Qualifiers: Diabetes mellitus type: type 2 Diabetes mellitus complication status: with unspecified complications Diabetes mellitus superintendent terminal insulin use: without halfway use Qualified Code(s): E11.8 - Type 2 diabetes mellitus with unspecified complications - Subjective Interval history: Reports some headache and chills; no nausea, vomiting, abdominal pain; resolved chest pain; she does have chronic pain at various points due to fibromyalgia; - Constitutional Vitals: Temp Pulse Resp BP Pulse Ox 97.9 F 67 17 125/91 98 02/06/17 12:00 02/06/17 12:00 02/06/17 12:00 02/06/17 12:00 02/06/17 12:00 General appearance: Present: A&O X 3, obese, answers questions appropriately - Respiratory Respiratory exam: Present: CTAB. Absent: accessory muscle use, rales, rhonchi, wheezes - Cardiovascular Cardiovascular exam: Present: RRR, +S1, +S2. Absent: diastolic murmur, gallop, rubs, systolic murmur - GI/Abdominal GI/Abdominal exam: Present: normal bowel sounds, soft, no peritoneal signs. Absent: distended, tenderness - Extremities Exam Extremities exam: Present: full ROM, warm, radial pulses palpable and symetrical. Absent: calf tenderness, cyanotic, pedal edema - Neurological Exam Neurological exam: Present: CN II-XII intact, oriented X3, no focal deficits. Absent: pronater drift, facial droop, speech deficit Internal Medicine: Result - Labs CBC & Chem 7: 02/06/17 03:36 02/06/17 03:36 Labs: Short CBC 02/06/17 Range/Units 03:36 WBC 7.9 (4.3-11.1) K/mcL Hgb 11.1 L D (11.5-15.4) g/dL Hct 34.9 L (35.3-44.9) % Plt Count 217 (140-400) K/mcL Neutrophils # 4.7 (1.6-8.9) K/mcL BMP 02/06/17 03:36 Sodium 143 Potassium 3.2 L Chloride 105 Carbon Dioxide 26 BUN 8 Creatinine 0.77 Glucose 114 H Calcium 8.4 L Cardiac Enzymes 02/05/17 02/05/17 Range/Units 18:28 23:08 Troponin I 0.00 0.02 (0-0.03) ng/mL - ABG Interpretation ABG results: PT/INR, D-dimer PT 11.6 Seconds (9.4-12.1) 02/05/17 12:00 D-Dimer 258 ng/mLFEU (0-500) 02/05/17 12:00 Consult Discharge Plan - Plan Referrals: Shahriar Bejarano MD [Primary Care Provider] -
--- NOTE | 2017-02-06 20:19 | Electrocardiograph Report ---
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
[2017-02-07] MEDS: *HR* HYDROmorphone (PF) 1 MG/ML SYRINGE IVP PRN ×4 (03:25→17:34)
[2017-02-07 04:35] LABS: Basophils # 0.1 K/mcL (0.0-0.2); Basophils % 0.7 %; Eosinophils # 0.2 K/mcL (0.0-0.6); Eosinophils % 3.3 %; Hematocrit 31.8 % (35.3-44.9); Immature Granulocytes % 0.6 % (0-4); Lymphocytes # 2.4 K/mcL (0.6-4.6); Lymphocytes % 34.7 %; Mean Corpuscular HGB Conc 31.4 g/dL (31.6-35.5); Mean Corpuscular Hemoglobin 29.2 pg (28.0-33.3); Mean Platelet Volume 10.1 fL (9.4-12.4); Monocytes # 0.4 K/mcL (0.0-1.3); Monocytes % 5.2 %; Neutrophils # 3.8 K/mcL (1.6-8.9); Platelet Count 168 K/mcL (140-400); Red Blood Count 3.42 M/mcL (3.82-4.97); Red Cell Distribution Width 13.2 % (11.5-14.5); Segmented Neutrophils % 55.5 %
[2017-02-07 04:46] LABS: BUN/Creatinine Ratio 8 (6-26); Blood Urea Nitrogen 6 mg/dL (7-20); Carbon Dioxide 27 mEq/L (19-29); Chloride 109 mEq/L (98-109); Glucose 92 mg/dL (70-99); Osmolality,Calculated 291 (280-300); Sodium 142 mEq/L (136-145); eGFR For African Americans > 60 (> 60); eGFR For Non-African Americans > 60 (> 60)
[2017-02-07] MEDS: tiZANidine 4 MG TABLET PO PRN ×2 (06:05→13:27)
[2017-02-07] MEDS: Cefepime HCl 1,000 MG in D5% in Water (Mini-Bag+) 100 ML IVPB SCH ×2 (06:06→17:25)
[2017-02-07] MEDS: *HR* Enoxaparin 40 MG/0.4 ML SYRINGE SQ SCH (06:09)
[2017-02-07] MEDS: Aspirin Enteric Coated 81 MG Tablet PO SCH (08:56)
[2017-02-07] MEDS: cloNIDine HCl 0.1 MG TABLET PO SCH ×2 (08:56→14:40)
[2017-02-07] MEDS: Gabapentin 300 MG CAPSULE PO SCH ×2 (08:57→14:40)
[2017-02-07] MEDS: Insulin LISPRO 300 UNITS/3 ML VIAL SQ SCH ×3 (08:57→17:24)
[2017-02-07] MEDS: Ondansetron ODT 4 MG TAB.RAPDIS SL PRN ×2 (09:13→17:34)
[2017-02-07] MEDS: Iron Polysaccharide Complex 150 MG CAPSULE PO SCH (11:31)
[2017-02-07] MEDS: Cyanocobalamin (B-12) 1,000 MCG TABLET PO SCH (11:31)
[2017-02-07] MEDS: 0.9 % Sodium Chloride 1,000 ML IVC SCH (11:32)
[2017-02-07 14:59] VITALS: BP 103/70
[2017-02-07] MEDS ORDERED: Naloxone 0.4 MG/ML INJ IVP PRN (15:06)
--- NOTE | 2017-02-07 15:06 | Internal Med Progress Note ---
Date of Encounter: 02/07/17 Time of Encounter: 15:05 - Assessment and plan (1) UTI (urinary tract infection) Current Visit: Yes Status: Acute Qualifiers: Urinary tract infection type: acute cystitis Hematuria presence: with hematuria Qualified Code(s): N30.01 - Acute cystitis with hematuria (2) Chest pain Current Visit: Yes Status: Acute Qualifiers: Chest pain type: precordial pain Qualified Code(s): R07.2 - Precordial pain (3) Fibromyalgia Current Visit: Yes Status: Chronic (4) Hypertension Current Visit: Yes Status: Chronic Qualifiers: Hypertension type: essential hypertension Qualified Code(s): I10 - Essential (primary) hypertension (5) Obesity Current Visit: Yes Status: Chronic Qualifiers: Obesity type: unspecified obesity type Obesity severity: non-morbid Qualified Code(s): E66.9 - Obesity, unspecified (6) Diabetes Current Visit: Yes Status: Chronic Qualifiers: Diabetes mellitus type: type 2 Diabetes mellitus complication status: with unspecified complications Diabetes mellitus skilled nursing insulin use: without adjunct faculty for medical terminology use Qualified Code(s): E11.8 - Type 2 diabetes mellitus with unspecified complications - Subjective Interval history: Feels better; improved chills, palpitations; reports intermittent epigastric pain, pressure-like; no nausea/vomiting, abdominal pain; - Constitutional Vitals: Temp Pulse Resp BP Pulse Ox 98.5 F 83 18 103/70 91 02/07/17 14:59 02/07/17 14:59 02/07/17 14:59 02/07/17 14:59 02/07/17 14:59 General appearance: Present: A&O X 3, obese, answers questions appropriately - Respiratory Respiratory exam: Present: CTAB. Absent: accessory muscle use, rales, rhonchi, wheezes - Cardiovascular Cardiovascular exam: Present: RRR, +S1, +S2. Absent: diastolic murmur, gallop, rubs, systolic murmur - GI/Abdominal GI/Abdominal exam: Present: normal bowel sounds, soft, no peritoneal signs. Absent: distended, tenderness - Extremities Exam Extremities exam: Present: full ROM, pedal edema, warm, radial pulses palpable and symetrical. Absent: calf tenderness, cyanotic Internal Medicine: Result - Labs CBC & Chem 7: 02/07/17 03:10 02/07/17 03:10 Labs: Short CBC 02/07/17 Range/Units 03:10 WBC 6.9 (4.3-11.1) K/mcL Hgb 10.0 L (11.5-15.4) g/dL Hct 31.8 L (35.3-44.9) % Plt Count 168 (140-400) K/mcL Neutrophils # 3.8 (1.6-8.9) K/mcL BMP 02/07/17 03:10 Sodium 142 Potassium 4.0 Chloride 109 Carbon Dioxide 27 BUN 6 L Creatinine 0.73 Glucose 92 Calcium 8.0 L - ABG Interpretation ABG results: PT/INR, D-dimer PT 11.6 Seconds (9.4-12.1) 02/05/17 12:00 D-Dimer 258 ng/mLFEU (0-500) 02/05/17 12:00 - VTE Documentation of Mechanical Device: Graduated compression elastic hosiery Consult Discharge Plan - Plan Referrals: Shahriar Bejarano MD [Primary Care Provider] -
--- NOTE | 2017-02-07 17:13 | Urology - Consult Note ---
Date of Encounter: 02/07/17 Time of Encounter: 17:08 - Assessment and Plan (1) UTI (urinary tract infection) Current Visit: Yes Status: Acute Assessment and plan: 47-year-old woman with a history of recurrent urinary tract infections. I reviewed her CT scan. There does not appear to be a nidus for her infections based upon the CT scan. I do not see any evidence of stone. We discussed simple measures of urinary tract infection prevention such as cranberry supplements, probiotics, and proper voiding habits. We also discussed the use of a traumatic prophylaxis. I recommend that she follow up in the urology clinic after her discharge for a cystoscopy. This will rule out any bladder pathology which may predispose her for infections. At that time we'll discuss further management options and potential for prophylaxis. Her last urine culture from earlier in January showed sensitivity to both nitrofurantoin and Bactrim. May be reasonable to transition her over to Bactrim double strength daily 10-14 days upon discharge. Qualifiers: Urinary tract infection type: acute cystitis Hematuria presence: with hematuria Qualified Code(s): N30.01 - Acute cystitis with hematuria Urology CN:HPI Consult date: 02/07/17 Reason for consult Urology: Other Requesting physician: Dominique Pathak History of present illness: 47 year old woman was admitted for a urinary tract infection. She has had multiple positive cultures for Escherichia coli since 2014. She had a CT scan on February 05, 2017. There is no evidence of nephrolithiasis or bladder stone. There did not appear to be any evidence of hydronephrosis bilaterally. She has a history of undergoing a gastric bypass surgery. She later required a revision secondary to a bowel obstruction. She has reported a mild subjective fever. She denies any difficulty with voiding. Past Med Surg Social Fam HX - Past Medical History Medical history: cardiomyopathy, diabetes, fibromyalgia, hypertension, liver disease (fatty liver), pulmonary embolus Psychiatric history: no psych history - Past Surgical History Surgical History: cholecystectomy, herniorrhaphy, other, bariatric surgery ( gastric bypass, with revision in 2013) - Social History Smoking Status: Never smoker Smokeless Tobacco Status: No Alcohol use: rarely Drug use: none - Family History Father Name: Emmanuel Medina Living Status: Age at : 63 Hx Family Cardiac Disorders: Yes (HTN) Hx Family Respiratory Disorders: Yes (COPD) Grandfather Hx Family Cardiac Disorders: Yes (HTN, BYPASS) Grandmother Hx Family Cardiac Disorders: Yes (CVA) Hx Family Neuromuscular Disorders: Yes (CVA) Hx Family Neurologic Disorders: Yes (CVA) Medications and Allergies Aspirin Enteric Coated [Aspirin EC] 81 mg PO DAILY 05/30/15 [History] Meclizine [Antivert] 12.5 - 25 mg PO BID PRN 05/30/15 [History] Multivitamin/Iron/Folic Acid [Centrum Complete Multivit Tab] 2 tab PO DAILY [History] Omeprazole [PriLOSEC] 40 mg PO DAILY 05/30/15 [History] Ondansetron [Zofran] 4 mg PO TID PRN 05/30/15 [History] CloNIDine HCl 0.1 mg PO TID 08/23/15 [History] Ergocalciferol (VITAMIN D2) [Vitamin D2 (50,000 UNIT)] 50,000 unit PO 2XW [History] Sitagliptin Phosphate [Januvia] 50 mg PO DAILY 11/20/15 [History] Tizanidine HCl [Zanaflex] 4 - 8 mg PO QID PRN 11/20/15 [History] Promethazine [Phenergan] 25 mg PO Q6HR PRN #10 tablet 11/21/15 [Rx] Furosemide [Lasix] 40 mg PO TID 07/04/16 [History] Gabapentin [Neurontin] 600 mg PO TID 07/04/16 [History] Hydroxyzine HCl 25 mg PO TID PRN 07/04/16 [History] Cyanocobalamin (Vitamin B-12) [Vitamin B-12] 1,000 mcg SL DAILY 07/05/16 [ History] Chlorthalidone 25 mg PO DAILY 09/19/16 [History] Acetaminophen with Codeine [Acetaminophen-Cod #4 Tablet] 2 tab PO TID PRN [History] Hydrochlorothiazide 25 mg PO DAILY 02/05/17 [History] Iron Polysaccharide Complex [Ferrex 150] 150 mg PO DAILY 02/05/17 [History] Allergies metoclopramide [From Reglan] Allergy (Verified 01/18/17 13:52) Hallucinating morphine Adverse Reaction (Severe, Verified 01/18/17 13:52) Difficulty Breathing SHORTNESS OF BREATH pregabalin [From Lyrica] Adverse Reaction (Severe, Verified 01/18/17 13:52) Confusion prochlorperazine [From Compazine] Adverse Reaction (Severe, Verified 01/18/17 13 :52) Hallucinations Cyclobenzaprine [From Flexeril] Adverse Reaction (Intermediate, Verified 13:52) INCREASED HEARTRATE methocarbamol [From Robaxin] Adverse Reaction (Intermediate, Verified 01/18/17 13:52) MIGRAINES pioglitazone [From Actos] Adverse Reaction (Verified 01/18/17 13:52) See Comments unknown tape Allergy (Uncoded 01/01/17 16:57) Rash steroids Adverse Reaction (Uncoded 01/01/17 16:57) Hypertension Review of Systems - Constitutional no chills, no fever(s) - EENT Nose, mouth and throat: no dizziness - Cardiovascular no chest pain - Respiratory no dyspnea - Gastrointestinal no nausea, no vomiting - Genitourinary Genitourinary: no flank pain, no hematuria - Musculoskeletal no back pain - Integumentary no erythema, no rash - Neurological no weakness - Psychiatric no suicidal ideation - Hematologic/Lymphatic no easy bleeding - Allergic/Immunologic no wheezing Exam Initial Vital Signs Temp Pulse Resp BP Pulse Ox 98.3 F 122 16 144/89 100 02/05/17 11:17 02/05/17 11:17 02/05/17 11:17 02/05/17 11:17 02/05/17 11:17 - General physical appearance Present: well developed, well nourished, no distress - Eyes Absent: icteric - ENT Present: normal nares - Neck Present: trachea midline - Respiratory Present: normal respiratory effort - Cardiovascular Cardiovascular exam IM: RRR - Abdomen Abdomen: Present: soft Urology Results - Labs 02/07/17 03:10 02/07/17 03:10 Abnormal lab results RBC 3.42 M/mcL (3.82-4.97) L 02/07/17 03:10 Hgb 10.0 g/dL (11.5-15.4) L 02/07/17 03:10 Hct 31.8 % (35.3-44.9) L 02/07/17 03:10 MCHC 31.4 g/dL (31.6-35.5) L 02/07/17 03:10 BUN 6 mg/dL (7-20) L 02/07/17 03:10 POC Glucose 163 (58-89) H 02/07/17 15:57 Calcium 8.0 mg/dL (8.6-10.8) L 02/07/17 03:10 AST 53 Units/L (5-34) H 02/05/17 12:00 Globulin 4.1 g/dL (2.4-3.5) H 02/05/17 12:00 Albumin/Globulin Ratio 0.9 (1.1-2.2) L 02/05/17 12:00 Urine Clarity Cloudy (Clear) A 02/05/17 12:28 Urine Blood Trace (Negative) H 02/05/17 12:28 Urine Nitrite Positive (Negative) A 02/05/17 12:28 Urine Urobilinogen 2.0 mg/dL (Normal) H 02/05/17 12:28 Ur Leukocyte Esterase Large (Negative) H 02/05/17 12:28 Urine Microscopic WBC 50-100 per hpf (0-3) H 02/05/17 12:28 Urine Bacteria Moderate per hpf (None-Few) H 02/05/17 12:28 Diabetes panel 02/07/17 Range/Units 03:10 Sodium 142 (136-145) mEq/L Potassium 4.0 (3.5-4.5) mEq/L Chloride 109 (98-109) mEq/L Carbon Dioxide 27 (19-29) mEq/L BUN 6 L (7-20) mg/dL Creatinine 0.73 (0.57-1.11) mg/dL Glucose 92 (70-99) mg/dL Calcium 8.0 L (8.6-10.8) mg/dL Calcium panel 02/07/17 Range/Units 03:10 Calcium 8.0 L (8.6-10.8) mg/dL Pituitary panel 02/07/17 Range/Units 03:10 Sodium 142 (136-145) mEq/L Potassium 4.0 (3.5-4.5) mEq/L Chloride 109 (98-109) mEq/L Carbon Dioxide 27 (19-29) mEq/L BUN 6 L (7-20) mg/dL Creatinine 0.73 (0.57-1.11) mg/dL Glucose 92 (70-99) mg/dL Calcium 8.0 L (8.6-10.8) mg/dL Adrenal panel 02/07/17 Range/Units 03:10 Sodium 142 (136-145) mEq/L Potassium 4.0 (3.5-4.5) mEq/L Chloride 109 (98-109) mEq/L Carbon Dioxide 27 (19-29) mEq/L BUN 6 L (7-20) mg/dL Creatinine 0.73 (0.57-1.11) mg/dL Glucose 92 (70-99) mg/dL Calcium 8.0 L (8.6-10.8) mg/dL All other labs normal. - Imaging CT scan - abdomen: report reviewed, image reviewed CT scan - pelvis: report reviewed, image reviewed Consult Discharge Plan - Plan Referrals: Shahriar Bejarano MD [Primary Care Provider] -
--- NOTE | 2017-02-07 18:01 | Discharge Summary ---
Date of Encounter: 02/07/17 Time of Encounter: 15:00 - Discharge Diagnosis (1) UTI (urinary tract infection) Priority: Primary Status: Acute Qualifiers: Urinary tract infection type: acute cystitis Hematuria presence: with hematuria Qualified Code(s): N30.01 - Acute cystitis with hematuria (2) Chest pain Priority: Primary Status: Acute Qualifiers: Chest pain type: precordial pain Qualified Code(s): R07.2 - Precordial pain (3) Fibromyalgia Priority: Secondary Status: Chronic (4) Hypertension Priority: Secondary Status: Chronic Qualifiers: Hypertension type: essential hypertension Qualified Code(s): I10 - Essential (primary) hypertension (5) Obesity Priority: Secondary Status: Chronic Qualifiers: Obesity type: unspecified obesity type Obesity severity: non-morbid Qualified Code(s): E66.9 - Obesity, unspecified (6) Diabetes Priority: Secondary Status: Chronic Qualifiers: Diabetes mellitus type: type 2 Diabetes mellitus complication status: with unspecified complications Diabetes mellitus prison insulin use: without prison use Qualified Code(s): E11.8 - Type 2 diabetes mellitus with unspecified complications - Discharge Medications Prescriptions: Sulfamethoxazole/Trimeth DS [Bactrim DS] 1 each PO BID #24 tablet Home Medications: Aspirin Enteric Coated [Aspirin EC] 81 mg PO DAILY 05/30/15 [History] Meclizine [Antivert] 12.5 - 25 mg PO BID PRN 05/30/15 [History] Multivitamin/Iron/Folic Acid [Centrum Complete Multivit Tab] 2 tab PO DAILY [History] Omeprazole [PriLOSEC] 40 mg PO DAILY 05/30/15 [History] Ondansetron [Zofran] 4 mg PO TID PRN 05/30/15 [History] CloNIDine HCl 0.1 mg PO TID 08/23/15 [History] Ergocalciferol (VITAMIN D2) [Vitamin D2 (50,000 UNIT)] 50,000 unit PO 2XW [History] Sitagliptin Phosphate [Januvia] 50 mg PO DAILY 11/20/15 [History] Tizanidine HCl [Zanaflex] 4 - 8 mg PO QID PRN 11/20/15 [History] Promethazine [Phenergan] 25 mg PO Q6HR PRN #10 tablet 11/21/15 [Rx] Furosemide [Lasix] 40 mg PO TID 07/04/16 [History] Gabapentin [Neurontin] 600 mg PO TID 07/04/16 [History] Hydroxyzine HCl 25 mg PO TID PRN 07/04/16 [History] Cyanocobalamin (Vitamin B-12) [Vitamin B-12] 1,000 mcg SL DAILY 07/05/16 [ History] Chlorthalidone 25 mg PO DAILY 09/19/16 [History] Acetaminophen with Codeine [Acetaminophen-Cod #4 Tablet] 2 tab PO TID PRN [History] Hydrochlorothiazide 25 mg PO DAILY 02/05/17 [History] Iron Polysaccharide Complex [Ferrex 150] 150 mg PO DAILY 02/05/17 [History] Sulfamethoxazole/Trimeth DS [Bactrim DS] 1 each PO BID #24 tablet 02/07/17 [Rx] Allergies/Adverse Reactions: Allergies metoclopramide [From Reglan] Allergy (Verified 01/18/17 13:52) Hallucinating morphine Adverse Reaction (Severe, Verified 01/18/17 13:52) Difficulty Breathing SHORTNESS OF BREATH pregabalin [From Lyrica] Adverse Reaction (Severe, Verified 01/18/17 13:52) Confusion prochlorperazine [From Compazine] Adverse Reaction (Severe, Verified 01/18/17 13 :52) Hallucinations Cyclobenzaprine [From Flexeril] Adverse Reaction (Intermediate, Verified 13:52) INCREASED HEARTRATE methocarbamol [From Robaxin] Adverse Reaction (Intermediate, Verified 01/18/17 13:52) MIGRAINES pioglitazone [From Actos] Adverse Reaction (Verified 01/18/17 13:52) See Comments unknown tape Allergy (Uncoded 01/01/17 16:57) Rash steroids Adverse Reaction (Uncoded 01/01/17 16:57) Hypertension Date of admission: 02/07/17 15:56 Primary care physician: Shahriar Bejarano Discharging clinician: Dominique Pathak Anticipated date of discharge: 02/07/17 - Patient Status Disposition: Home, Self-Care Condition: Fair Functional capacity at discharge: independent ambulation Overall status at discharge: patient is progressing back to baseline - Discharge Instructions Instructions: Sulfamethoxazole/Trimethoprim (By mouth), Chest Pain (DC), Urinary Tract Infection in Women (DC), Diabetes Mellitus Type 2 in Adults (DC), Chronic Hypertension (DC) Follow Up With: Greg Peralta MD [Partnered Physician] - (We have requested a hospital follow up with Dr Peralta. The office will call you at home with an appointment date and time.) Shahriar Bejarano MD [Primary Care Provider] - (Please call to schedule a follow up with your primary care physician in 5-7 days.) Forms: ED Satisfaction Letter Additional Instructions: F/up with [facility] in 2-3 weeks - Diet and Activity Activity: resume usual activities as tolerated Diet: diabetic diet, low fat, low cholesterol, low salt diet Hospital course: Ms. Mcdonald is a 47 year old female with multiple hospital admission with UTI and chest pain was admitted for similar compliants. Initial workup showed possible UTI on urine dipstick and she was started on IV Cefepime. Telemetry monitoring remained uneventful and serial Troponins remained negative. Echocardiogram showed preserved EF and no significant valvular abnormalities. She did have previous stress testing which was normal. SHe has underlying fibromyalgia and pain issues and noted to be on multiple analgesics and chest pain is probably musculoskeletal. Review of previous microbiology results showed several UTIs with E.coli, sensitive to cephalosporins. Urology was consulted due to frequent UTIs and patient is recommended to f/up as an outpatient for recurring symptoms and is being discharged on long course of Bactrim- 2 weeks. - Time Spent with Patient Total time spent providing and/or coordinating discharge services: Greater than 30 minutes (50 min) - Constitutional Vitals: Temp Pulse Resp BP Pulse Ox 98.5 F 83 18 103/70 91 02/07/17 14:59 02/07/17 14:59 02/07/17 14:59 02/07/17 14:59 02/07/17 14:59 General appearance: Present: A&O X 3, obese, answers questions appropriately - Respiratory Respiratory exam: Present: CTAB. Absent: accessory muscle use, rales, rhonchi, wheezes - Cardiovascular Cardiovascular exam: Present: RRR, +S1, +S2. Absent: diastolic murmur, gallop, rubs, systolic murmur - VTE Documentation of Mechanical Device: Graduated compression elastic hosiery
== END 2017-02-07 19:52 | disposition home or self-care (01) ==
LOC: 3BNU 11:13 → EMEROO 11:13 → 3BNU 16:58 → SUATTDRO 17:47
PROVIDERS: ADMIT Hospitalist; ATTEND Internal Medicine

== ENCOUNTER 2017-07-19 16:58 | Inpatient (IN) ==
--- NOTE | 2017-07-19 17:56 | Emergency Department Note ---
Disposition Clinical Impression: Hypokalemia, Generalized weakness, Hypomagnesemia, Cellulitis of abdominal wall Sepsis Qualifiers: Sepsis type: sepsis due to unspecified organism Qualified Code(s): A41.9 - Sepsis, unspecified organism Disposition: Admitted As Inpatient Condition: Fair Time of Disposition: 20:15 General Adult HPI - General Chief complaint: ED General Medical Stated complaint: High Heart Rate,Rash Time Seen by Provider: 07/19/17 17:22 Source: patient Limitations: no limitations Nursing Notes Reviewed: Yes Vital Signs Reviewed: Yes - History of Present Illness HPI Narrative: 47-year-old insulin dependent diabetic on Januvia, female presents complaining of rapid heart rate. Patient states that she has also notes a generalized rash across her whole body, she states that she sometimes notices a fast heart rate when she develops infection such as UTI. Patient denies productive cough or hemoptysis. Patient states that she feels generally ill, she has been treated for a tinea corporis rash a month ago and she states that this is gotten worse across her whole body. She feels nauseated but has not had emesis. She feels generally weak, she denies any chest pain or shortness of breath. She reports no focal weakness. She states that she has been feeling this way for the last few weeks. He came in to the ED because she just felt worse today and she felt like her heart was racing. In the 130s. She denies history of A. fib. Onset (ago): minute(s) Pain Severity: moderate Pain Scale: 5 Quality: aching Improves with: nothing Worsens with: nothing Associated symptoms: Reports: malaise, nausea/vomiting, weakness. Denies: confusion, chest pain, cough, diaphoresis, fever/chills, headaches, loss of appetite - Related Data Home Medications Medication Instructions Recorded Confirmed Aspirin Enteric Coated [Aspirin EC] 81 mg PO DAILY 05/30/15 07/19/17 Meclizine [Antivert] 12.5 - 25 mg PO BID PRN 05/30/15 07/19/17 Ondansetron [Zofran] 4 mg PO TID PRN 05/30/15 07/19/17 cloNIDine HCl [CloNIDine HCl] 0.1 mg PO TID 08/23/15 07/19/17 Ergocalciferol (VITAMIN D2) 50,000 unit PO 2XW 10/24/15 07/19/17 [Vitamin D2 (50,000 UNIT)] Sitagliptin Phosphate [Januvia] 50 mg PO DAILY 11/20/15 07/19/17 Tizanidine HCl [Zanaflex] 4 - 8 mg PO QID PRN 11/20/15 07/19/17 Furosemide [Lasix] 40 mg PO TID PRN 07/04/16 07/19/17 Gabapentin [Neurontin] 600 mg PO TID 07/04/16 07/19/17 hydrOXYzine HCl [Hydroxyzine HCl] 25 mg PO TID PRN 07/04/16 07/19/17 Cyanocobalamin (Vitamin B-12) 1,000 mcg SL Q48H 07/05/16 07/19/17 [Vitamin B-12] Chlorthalidone 25 mg PO DAILY 09/19/16 07/19/17 Acetaminophen with Codeine 1 tab PO TID PRN 02/05/17 07/19/17 [Acetaminophen-Cod #4 Tablet] Lansoprazole [Prevacid] 30 mg PO DAILY 07/19/17 07/19/17 Multivit-Minerals/Folic Acid 200 mcg PO DAILY 07/19/17 07/19/17 [Adult Multivitamin Gummies] Nitrofurantoin [Macrodantin] 50 mg PO HS 07/19/17 07/19/17 Previous Rx's Medication Instructions Recorded Promethazine [Phenergan] 25 mg PO Q6HR PRN #10 tablet 11/21/15 Allergies Allergy/AdvReac Type Severity Reaction Status Date / Time morphine Allergy Severe Difficulty Verified 06/19/17 15:53 Breathing pregabalin [From Lyrica] AdvReac Severe Confusion Verified 06/19/17 15:53 prochlorperazine AdvReac Severe Hallucinati Verified 06/19/17 15:53 [From Compazine] ons Cyclobenzaprine AdvReac Intermediate INCREASED Verified 06/19/17 15:53 [From Flexeril] HEARTRATE methocarbamol [From Robaxin] AdvReac Intermediate MIGRAINES Verified 06/19/17 15 :53 fentanyl AdvReac Vomiting Verified 06/19/17 15:53 metoclopramide [From Reglan] AdvReac See Verified 06/19/17 15:53 Comments pioglitazone [From Actos] AdvReac See Verified 06/19/17 15:53 Comments tape Allergy Rash Uncoded 06/19/17 15:53 steroids AdvReac Hypertensio Uncoded 06/19/17 15:53 n All systems ED: reviewed and negative except as stated. Review of Systems: As Per HPI Constitutional: Reports: as per HPI, weakness. Denies: fever, chills Eyes: Denies: eye pain ENT ED: Denies: ear pain Cardiovascular: Reports: as per HPI, palpitations. Denies: chest pain, dyspnea on exertion, orthopnea Respiratory: Denies: cough, dyspnea Gastrointestinal: Reports: as per HPI, nausea, vomiting Genitourinary: Denies: urgency, dysuria Musculoskeletal: Denies: back pain Integumentary: Denies: rash, abrasion Neurological: Reports: as per HPI, weakness. Denies: headache, numbness, paresthesias, confusion Psychiatric: Denies: anxiety Endocrine: Denies: fatigue Past Medical History - Past Medical History Attestation: Yes The following information was validated with the patient. Source: patient Medical history: Reports: diabetes, GERD, hypertension, other Surgical history: Reports: cholecystectomy, herniorrhaphy, other, bariatric surgery (gastric bypass, with revision in 2013) Psychiatric history: Reports: no psych history [employer] history: Reports: polycystic ovary syndrome - Social History Smoking Status: Never smoker Smokeless Tobacco Status: No Alcohol use: Reports: none Drug use: Reports: none Physical Exam Constitutional: NAD, vital signs with tachycardia Eyes: PERRLA, sclera anicteric ENT & Mouth: MM dry Neck: normal inspection, neck is supple Resp: CTA bilaterally, no resp distress CV: sinus tachycardia, no m/g/r GI: normal inspection, soft, no guarding or rigidity Neuro: A&O3, CNII-XII grossly intact, [place] Skin: confluent macular rash truncal and on bilateral UE and LE, with raised edges, no fluctuance or crepitus - General Limitations: no limitations General appearance: alert Course Course Narrative: Tachycardic female, she is no acute distress, there is a confluence raised macular rash that appears consistent with tinea, I will recheck a urinalysis as she did just have one done at an urgent care, that was unremarkable, suspect that she may actually be septic, given tachycardia we will check basic lab work she appears very dry ordered with dry mucous membranes, ordered 2 L of fluid. It workup chest x-ray basic lab work reassessed - Reevaluation(s) Reevaluation #1: Patient was with evidence of hypokalemia, ordered potassium replacement, Dr. Mendez added magnesium level which was 1.4, start IV mag, patient has diffuse rash, some aspects of this appear mildly cellulitic on her torso, given tachycardia elevated white blood cell count erythematous rash, will cover with broad-spectrum antibiotics, generalized weakness may be likely due to hypokalemia or by mouth intake, at this time treated empirically for presumed sepsis does not meet criteria for severe sepsis, source possibly skin, urinalysis negative an outpatient urgent care setting. Patient hemodynamically stable with systolic blood pressures persistently above 90, lactate was not elevated, patient admitted to hospitalist service Reevaluation #2: Jose Franciscopenini accepting Time: 20:00 Vital Signs Temperature 98.7 F 07/19/17 17:14 Pulse Rate 74 07/19/17 17:14 Respiratory Rate 14 07/19/17 17:14 Blood Pressure 121/84 07/19/17 17:14 O2 Sat by Pulse Oximetry 97 07/19/17 17:14 Temperature 98.4 F 07/19/17 21:37 Pulse Rate 125 07/19/17 21:37 Respiratory Rate 20 07/19/17 21:37 Blood Pressure 140/85 07/19/17 21:37 O2 Sat by Pulse Oximetry 100 07/19/17 21:37 Oxygen Delivery Oxygen Delivery Room Air Medical Decision Making - Medical Records Medical records reviewed: Yes I reviewed the patient's medical records. - Lab Data Lab results reviewed: Yes I reviewed the patient's lab results. Result diagrams: 07/19/17 18:28 07/19/17 18:28 Lab Results 07/19/17 07/19/17 07/19/17 Range/Units 18:28 18:28 18:28 WBC 12.1 H (4.3-11.1) K/mcL RBC 3.88 (3.82-4.97) M/mcL Hgb 11.1 L (11.5-15.4) g/dL Hct 34.2 L (35.3-44.9) % MCV 88.1 (83.0-100.0) fL MCH 28.6 (28.0-33.3) pg MCHC 32.5 (31.6-35.5) g/dL RDW 13.7 (11.5-14.5) % Plt Count 316 (140-400) K/mcL MPV 9.1 L (9.4-12.4) fL Immature Gran % 0.4 (0-4) % Seg Neutrophils % 74.2 % Lymphocytes % 16.7 % Monocytes % 7.3 % Eosinophils % 0.9 % Basophils % 0.5 % Neutrophils # 9.0 H (1.6-8.9) K/mcL Lymphocytes # 2.0 (0.6-4.6) K/mcL Monocytes # 0.9 (0.0-1.3) K/mcL Eosinophils # 0.1 (0.0-0.6) K/mcL Basophils # 0.1 (0.0-0.2) K/mcL ESR (0-15) mm/hr PT 12.6 H (9.4-12.1) Seconds INR 1.2 APTT 30.0 (26.0-36.0) Seconds Sodium 139 (136-145) mEq/L Potassium 2.3 L* (3.5-4.5) mEq/L Chloride 95 L (98-109) mEq/L Carbon Dioxide 32 H (19-29) mEq/L BUN 22 H (7-20) mg/dL Creatinine 0.97 (0.57-1.11) mg/dL Est GFR ( Amer) > 60 (> 60) Est GFR (Non-Af Amer) > 60 (> 60) BUN/Creatinine Ratio 23 (6-26) Glucose 201 H (70-99) mg/dL Calculated Osmolality 297 (280-300) Lactic Acid (0.5-2.2) mmol/L Calcium 8.1 L (8.6-10.8) mg/dL Magnesium 1.4 L (1.6-2.6) mg/dL Total Bilirubin 1.2 (0.2-1.2) mg/dL Direct Bilirubin 0.6 H (0.0-0.5) mg/dL Indirect Bilirubin 0.6 (0.0-1.2) mg/dL AST 29 (5-34) Units/L ALT 20 (0-55) Units/L Alkaline Phosphatase 132 H (38-126) Units/L Creatine Kinase (29-168) Units/L Troponin I (0-0.03) ng/mL C-Reactive Protein (Less than 5) mg/L Serum Total Protein 5.9 L (6.0-8.3) g/dL Albumin 2.6 L (3.5-5.0) g/dL Globulin 3.3 (2.4-3.5) g/dL Albumin/Globulin Ratio 0.8 L (1.1-2.2) Urine Color (Yellow) Urine Clarity (Clear) Urine pH (5.0-8.0) pH Units Ur Specific [place] (1.010-1.025) Urine Protein (Neg-Trace) mg/dL Urine Glucose (UA) (Normal) mg/dL Urine Ketones (Negative) mg/dL Urine Blood (Negative) Urine Nitrite (Negative) Urine Bilirubin (Negative) Urine Urobilinogen (Normal) mg/dL Ur Leukocyte Esterase (Negative) Urine Microscopic RBC (0-3) per hpf Urine Microscopic WBC (0-3) per hpf Ur Squamous Epith Cells (None-Few) per lpf Urine Bacteria (None-Few) per hpf Hyaline Casts (None-Few) per lpf Ur Culture Indicated? (NO) 07/19/17 07/19/17 07/19/17 Range/Units 18:28 18:28 18:28 WBC (4.3-11.1) K/mcL RBC (3.82-4.97) M/mcL Hgb (11.5-15.4) g/dL Hct (35.3-44.9) % MCV (83.0-100.0) fL MCH (28.0-33.3) pg MCHC (31.6-35.5) g/dL RDW (11.5-14.5) % Plt Count (140-400) K/mcL MPV (9.4-12.4) fL Immature Gran % (0-4) % Seg Neutrophils % % Lymphocytes % % Monocytes % % Eosinophils % % Basophils % % Neutrophils # (1.6-8.9) K/mcL Lymphocytes # (0.6-4.6) K/mcL Monocytes # (0.0-1.3) K/mcL Eosinophils # (0.0-0.6) K/mcL Basophils # (0.0-0.2) K/mcL ESR 68 H (0-15) mm/hr PT (9.4-12.1) Seconds INR APTT (26.0-36.0) Seconds Sodium (136-145) mEq/L Potassium (3.5-4.5) mEq/L Chloride (98-109) mEq/L Carbon Dioxide (19-29) mEq/L BUN (7-20) mg/dL Creatinine (0.57-1.11) mg/dL Est GFR ( Amer) (> 60) Est GFR (Non-Af Amer) (> 60) BUN/Creatinine Ratio (6-26) Glucose (70-99) mg/dL Calculated Osmolality (280-300) Lactic Acid 1.8 (0.5-2.2) mmol/L Calcium (8.6-10.8) mg/dL Magnesium (1.6-2.6) mg/dL Total Bilirubin (0.2-1.2) mg/dL Direct Bilirubin (0.0-0.5) mg/dL Indirect Bilirubin (0.0-1.2) mg/dL AST (5-34) Units/L ALT (0-55) Units/L Alkaline Phosphatase (38-126) Units/L Creatine Kinase (29-168) Units/L Troponin I 0.01 (0-0.03) ng/mL C-Reactive Protein (Less than 5) mg/L Serum Total Protein (6.0-8.3) g/dL Albumin (3.5-5.0) g/dL Globulin (2.4-3.5) g/dL Albumin/Globulin Ratio (1.1-2.2) Urine Color (Yellow) Urine Clarity (Clear) Urine pH (5.0-8.0) pH Units Ur Specific [place] (1.010-1.025) Urine Protein (Neg-Trace) mg/dL Urine Glucose (UA) (Normal) mg/dL Urine Ketones (Negative) mg/dL Urine Blood (Negative) Urine Nitrite (Negative) Urine Bilirubin (Negative) Urine Urobilinogen (Normal) mg/dL Ur Leukocyte Esterase (Negative) Urine Microscopic RBC (0-3) per hpf Urine Microscopic WBC (0-3) per hpf Ur Squamous Epith Cells (None-Few) per lpf Urine Bacteria (None-Few) per hpf Hyaline Casts (None-Few) per lpf Ur Culture Indicated? (NO) 07/19/17 07/19/17 Range/Units 18:28 19:02 WBC (4.3-11.1) K/mcL RBC (3.82-4.97) M/mcL Hgb (11.5-15.4) g/dL Hct (35.3-44.9) % MCV (83.0-100.0) fL MCH (28.0-33.3) pg MCHC (31.6-35.5) g/dL RDW (11.5-14.5) % Plt Count (140-400) K/mcL MPV (9.4-12.4) fL Immature Gran % (0-4) % Seg Neutrophils % % Lymphocytes % % Monocytes % % Eosinophils % % Basophils % % Neutrophils # (1.6-8.9) K/mcL Lymphocytes # (0.6-4.6) K/mcL Monocytes # (0.0-1.3) K/mcL Eosinophils # (0.0-0.6) K/mcL Basophils # (0.0-0.2) K/mcL ESR (0-15) mm/hr PT (9.4-12.1) Seconds INR APTT (26.0-36.0) Seconds Sodium (136-145) mEq/L Potassium (3.5-4.5) mEq/L Chloride (98-109) mEq/L Carbon Dioxide (19-29) mEq/L BUN (7-20) mg/dL Creatinine (0.57-1.11) mg/dL Est GFR ( Amer) (> 60) Est GFR (Non-Af Amer) (> 60) BUN/Creatinine Ratio (6-26) Glucose (70-99) mg/dL Calculated Osmolality (280-300) Lactic Acid (0.5-2.2) mmol/L Calcium (8.6-10.8) mg/dL Magnesium (1.6-2.6) mg/dL Total Bilirubin (0.2-1.2) mg/dL Direct Bilirubin (0.0-0.5) mg/dL Indirect Bilirubin (0.0-1.2) mg/dL AST (5-34) Units/L ALT (0-55) Units/L Alkaline Phosphatase (38-126) Units/L Creatine Kinase 174 H (29-168) Units/L Troponin I (0-0.03) ng/mL C-Reactive Protein 41 H (Less than 5) mg/L Serum Total Protein (6.0-8.3) g/dL Albumin (3.5-5.0) g/dL Globulin (2.4-3.5) g/dL Albumin/Globulin Ratio (1.1-2.2) Urine Color Dark Yellow (Yellow) Urine Clarity Clear (Clear) Urine pH 5.5 (5.0-8.0) pH Units Ur Specific [place] 1.027 H (1.010-1.025) Urine Protein Negative (Neg-Trace) mg/dL Urine Glucose (UA) Normal (Normal) mg/dL Urine Ketones Trace H (Negative) mg/dL Urine Blood Negative (Negative) Urine Nitrite Negative (Negative) Urine Bilirubin Small H (Negative) Urine Urobilinogen Normal (Normal) mg/dL Ur Leukocyte Esterase Small H (Negative) Urine Microscopic RBC 0-3 (0-3) per hpf Urine Microscopic WBC 5-15 H (0-3) per hpf Ur Squamous Epith Cells Many H (None-Few) per lpf Urine Bacteria None Seen (None-Few) per hpf Hyaline Casts Few (None-Few) per lpf Ur Culture Indicated? YES A (NO) - Radiology Data Radiology results reviewed: Yes I reviewed the patient's radiology results. Chest X-Ray 07/19/17 17:43 IMPRESSION: Mild left lower lung atelectasis. No acute cardiopulmonary process. D/ / 07/19/2017 18:20:58 Jamison Pimentel MD / [email or web address] Interpreting Provider: Jamison Pimentel MD - EKG Data EKG #1 EKG attestation: Yes I reviewed and interpreted this EKG. Rate: tachycardia (123 bpm UT 168 QRS [address] segment elevations or depressions.) [place]/QRS: normal Interpretation: no acute changes - Core Measures AMI Core Measures Followed: No Attestation Statement - Attestation Attestation: I examined this patient and my medical decision-making was reviewed with the Resident Physician, Dr. Leborn. I agree with the documented findings, disposition and treatment plan as described except to the extent set forth below. Patient is a 47-year-old white female with history of type 1 diabetes mellitus who presents emergency department with a two-week history of gradually worsening generalized weakness, decreased appetite, gradually worsening nausea and ongoing rash. Patient states that her nausea has worsened and she is just had absolutely no appetite has had no by mouth intake over the last 5-6 days. is concerned because she more even tolerate fluids at this point in time. Patient also has a history of iron deficiency anemia as well as B12 and folate deficiencies and history of hypokalemia. Patient admits that she does not like any of her iron replacement potassium replacement or B12 supplements. She admits to being noncompliant with these medications. Patient denies any fevers or chills, no chest pain or shortness of breath, no abdominal pain or vomiting with this nausea and no bowel changes. Patient also complains of just generalized pain related to her fibromyalgia but no specific joint pain or isolated myalgias. I agree with patient's physical exam findings as documented. Patient clinically appeared dehydrated and was tachycardic on arrival. Once an IV was secured we did do IV fluid resuscitation which improved her vital signs. Patient's EKG showed a sinus tachycardia with no acute ischemic changes. Chest x-ray was unremarkable, urinalysis did not show any sign of infection. Patient does have an anemia that is stable compared to prior lab evaluation. Today patient does have a significantly low potassium as well as magnesium and we have initiated replacement for both in the emergency department. We are also covering the patient with empiric antibiotics as she was febrile and tachycardic on arrival. Were suspicious that her fever and tachycardia could stem from a cellulitic infection of her abdominal wall secondary to this chronic rash and skin breakdown. Patient states she was seen by dermatology in the past and was told this was a stress dermatitis. Patient is hemodynamically improved following IV fluids and agrees with admission to the hospital for further evaluation and treatment.
[2017-07-19 18:39] LABS: Basophils # 0.1 K/mcL (0.0-0.2); Basophils % 0.5 %; Eosinophils # 0.1 K/mcL (0.0-0.6); Eosinophils % 0.9 %; Hematocrit 34.2 % (35.3-44.9); Hemoglobin 11.1 g/dL (11.5-15.4); Immature Granulocytes % 0.4 % (0-4); Lymphocytes % 16.7 %; Mean Corpuscular HGB Conc 32.5 g/dL (31.6-35.5); Mean Corpuscular Hemoglobin 28.6 pg (28.0-33.3); Mean Corpuscular Volume 88.1 fL (83.0-100.0); Mean Platelet Volume 9.1 fL (9.4-12.4); Monocytes # 0.9 K/mcL (0.0-1.3); Monocytes % 7.3 %; Platelet Count 316 K/mcL (140-400); Red Blood Count 3.88 M/mcL (3.82-4.97); Red Cell Distribution Width 13.7 % (11.5-14.5); Segmented Neutrophils % 74.2 %
[2017-07-19 18:49] LABS: INR 1.2; Prothrombin Time 12.6 Seconds (9.4-12.1)
[2017-07-19 18:53] LABS: Alanine Aminotransferase 20 Units/L (0-55); Albumin 2.6 g/dL (3.5-5.0); Albumin/Globulin Ratio 0.8 (1.1-2.2); Alkaline Phosphatase 132 Units/L (38-126); Aspartate Amino Transferase 29 Units/L (5-34); BUN/Creatinine Ratio 23 (6-26); Bilirubin,Direct 0.6 mg/dL (0.0-0.5); Bilirubin,Indirect 0.6 mg/dL (0.0-1.2); Bilirubin,Total 1.2 mg/dL (0.2-1.2); Blood Urea Nitrogen 22 mg/dL (7-20); Calcium 8.1 mg/dL (8.6-10.8); Carbon Dioxide 32 mEq/L (19-29); Chloride 95 mEq/L (98-109); Globulin 3.3 g/dL (2.4-3.5); Glucose 201 mg/dL (70-99); Osmolality,Calculated 297 (280-300); Sodium 139 mEq/L (136-145); Total Protein 5.9 g/dL (6.0-8.3); eGFR For African Americans > 60 (> 60); eGFR For Non-African Americans > 60 (> 60)
[2017-07-19 18:55] LABS: Potassium 2.3 mEq/L (3.5-4.5)
[2017-07-19 19:07] LABS: Magnesium 1.4 mg/dL (1.6-2.6)
[2017-07-19] MEDS ORDERED: Potassium Chloride Elixir 20 MEQ/15 ML UDC PO ONE (19:16)
[2017-07-19] MEDS ORDERED: Vancomycin 1,000 MG in D5% in Water 250 ML IVPB ONE (19:22)
[2017-07-19] MEDS ORDERED: Piperacillin/Tazobactam 3.375 GM in D5% in Water (Mini-Bag+) 100 ML IVPB ONE (19:22)
[2017-07-19 19:24] LABS: Bilirubin,Urine Small (Negative); Blood,Urine Negative (Negative); Clarity,Urine Clear (Clear); Color,Urine Dark Yellow (Yellow); Glucose,Urine (UA) Normal (Normal); Ketones,Urine Trace mg/dL (Negative); Leukocyte Esterase,Urine Small (Negative); Nitrite,Urine Negative (Negative); PH,Urine 5.5 pH Units (5.0-8.0); Protein,Urine Negative (Neg-Trace); Specific Gravity,Urine 1.027 (1.010-1.025); Urobilinogen,Urine Normal (Normal)
[2017-07-19] MEDS ORDERED: 0.9 % Sodium Chloride 1,000 ML IVC ONE (19:26)
[2017-07-19 19:27] LABS: Bacteria,Urine None Seen per hpf (None-Few); RBC,Urine 0-3 per hpf (0-3); Squamous Epithelial Cell,Urine Many per lpf (None-Few)
[2017-07-19] MEDS: 0.9 % Sodium Chloride 1,000 ML IVC SCH ×2 (19:32→21:45)
[2017-07-19 19:38] LABS: Hyaline Casts,Urine Few per lpf (None-Few)
[2017-07-19] MEDS ORDERED: Ondansetron 4 MG/2 ML VIAL IVP ONE (19:38)
[2017-07-19] MEDS ORDERED: Acetaminophen 325 MG TABLET PO ONE (19:44)
[2017-07-19 19:56] LABS: C-Reactive Protein 41 mg/L (Less than 5); Creatine Kinase 174 Units/L (29-168)
[2017-07-20] MEDS ORDERED: Acetaminophen 325 MG TABLET PO PRN (01:03)
[2017-07-20] MEDS ORDERED: *HR* HYDROmorphone (PF) 1 MG/ML SYRINGE IVP PRN (01:03)
[2017-07-20] MEDS ORDERED: Naloxone 0.4 MG/ML INJ IVP PRN (01:03)
[2017-07-20] MEDS ORDERED: Cyanocobalamin (B-12) 1,000 MCG TABLET PO SCH (01:15)
--- NOTE | 2017-07-20 01:26 | Internal Med History&Physical ---
Date of Encounter: 07/20/17 Time of Encounter: 00:40 Assessment and Plan (1) Sepsis Current visit: Yes Status: Acute 1. Blood and urine cultures have been obtained in ER. 2. She received fluid boluses in ER and BP stable currently. 3. Will continue on IVF and monitor closely. 4. Suspect urine source given history and current symptoms. 5. Continue IV antibiotics and deescalate when clinically appropriate. Qualifiers: Sepsis type: sepsis due to unspecified organism Qualified Code(s): A41.9 - Sepsis, unspecified organism (2) Hypertension Current visit: No Status: Chronic 1. Continue home meds as appropriate. 2. Monitor BP and adjust as necessary. Qualifiers: Hypertension type: essential hypertension Qualified Code(s): I10 - Essential (primary) hypertension (3) UTI (urinary tract infection) Current visit: No Status: Acute 1. Follow urine culture. 2. Adjust antibiotics per culture results. Qualifiers: Urinary tract infection type: acute cystitis Hematuria presence: without hematuria Qualified Code(s): N30.00 - Acute cystitis without hematuria (4) Generalized weakness Current visit: Yes Status: Acute 1. Likely related to UTI/sepsis as well as hyokalemia. 2. Treat UTI/Sepsis and correct hypokalemia. 3. Monitor clinically and consult PT/OT if necessary. (5) Hypokalemia Current visit: Yes Status: Acute 1. Correct with oral potassium supplementation and monitor closely. 2. Stop Lasix and Chlorthalidone while inpatient. (6) DVT prophylaxis Current visit: Yes Status: Acute 1. Heparin SQ. Internal Medicine - H&P: HPI Chief complaint: fever, weakness, dysuria, and tachycardia Admitted From: Emergency Dept Plans for Post Hospital Care: Home History of present illness: Ms. Mcdonald is a 47 year old female who presents with a 2-3 day history of subjective fever, increasing weakness, dysuria, tachycardia, and muscle cramping. She was seen by her PCP who sent her to the ER. In the ER, she was noted to have the above complaints and also a diffuse, pruritic rash throughout her trunk. There was concern the patient had findings consistent with sepsis, and she was therefore admitted to the hospitalist service. She did have blood and urine cultures obtained, and she had antibiotics initiated. Upon my assessment of the patient, she appears pale and weak, but she is not in any distress. She denies any chest pain, cough, shortness of breath, vomiting, or diarrhea. She does complain of dysuria, flank pain, and suprapubic pain. I reviewed her old records and her old urine culture results. She has had frequent UTI, and she feels as though she has a severe case of UTI/infection at this time. Her rash is chronic and not new. She has had this for several months, but it has worsened and intensified over the last few weeks. She had been diagnosed with psoriasis in the past, but her rash appears to be more consistent with a severe case of eczema versus zinc deficiency related to her gastric bypass surgery. She has tried [id number] steroid creams with little success. She has not seen a blueprint clerk in several years. Regarding her hypokalemia, she takes Lasix and chlorthalidone. She denies any diarrhea or vomiting to suggest GI losses. Past Med Surg Social Fam HX - Past Medical History Attestation: Yes The following information was validated with the patient. Source: patient, old records reviewed, obtained from family Medical history: diabetes, GERD, hypertension Psychiatric history: no psych history - Past Surgical History Surgical History: cholecystectomy, herniorrhaphy, other, bariatric surgery ( gastric bypass, with revision in 2013) - Social History Smoking Status: Never smoker Smokeless Tobacco Status: No Alcohol use: none Drug use: none Current living situation: Home, With Family Activity Level: Independent ambulation Recent Out of Country Travel Within the Last 8 Weeks: No - Family History Father Living Status: Hx Family Cardiac Disorders: Yes (HTN) Hx Family Respiratory Disorders: Yes (COPD) Grandfather Hx Family Cardiac Disorders: Yes (HTN, BYPASS) Grandmother Hx Family Cardiac Disorders: Yes (CVA) Hx Family Neuromuscular Disorders: Yes (CVA) Hx Family Neurologic Disorders: Yes (CVA) Internal Medicine - H&P: Meds Aspirin Enteric Coated [Aspirin EC] 81 mg PO DAILY 05/30/15 [History] Meclizine [Antivert] 12.5 - 25 mg PO BID PRN 05/30/15 [History] Ondansetron [Zofran] 4 mg PO TID PRN 05/30/15 [History] cloNIDine HCl [CloNIDine HCl] 0.1 mg PO TID 08/23/15 [History] Ergocalciferol (VITAMIN D2) [Vitamin D2 (50,000 UNIT)] 50,000 unit PO 2XW [History] Sitagliptin Phosphate [Januvia] 50 mg PO DAILY 11/20/15 [History] Tizanidine HCl [Zanaflex] 4 - 8 mg PO QID PRN 11/20/15 [History] Promethazine [Phenergan] 25 mg PO Q6HR PRN #10 tablet 11/21/15 [Rx] Furosemide [Lasix] 40 mg PO TID PRN 07/04/16 [History] Gabapentin [Neurontin] 600 mg PO TID 07/04/16 [History] hydrOXYzine HCl [Hydroxyzine HCl] 25 mg PO TID PRN 07/04/16 [History] Cyanocobalamin (Vitamin B-12) [Vitamin B-12] 1,000 mcg SL Q48H 07/05/16 [History ] Chlorthalidone 25 mg PO DAILY 09/19/16 [History] Acetaminophen with Codeine [Acetaminophen-Cod #4 Tablet] 1 tab PO TID PRN [History] Lansoprazole [Prevacid] 30 mg PO DAILY 07/19/17 [History] Multivit-Minerals/Folic Acid [Adult Multivitamin Gummies] 200 mcg PO DAILY 07/19 [History] Nitrofurantoin [Macrodantin] 50 mg PO HS 07/19/17 [History] 3 Allergy/AdvReac Type Severity Reaction Status Date / Time morphine Allergy Severe Difficulty Verified 06/19/17 15:53 Breathing pregabalin [From Lyrica] AdvReac Severe Confusion Verified 06/19/17 15:53 prochlorperazine AdvReac Severe Hallucinati Verified 06/19/17 15:53 [From Compazine] ons Cyclobenzaprine AdvReac Intermediate INCREASED Verified 06/19/17 15:53 [From Flexeril] HEARTRATE methocarbamol [From Robaxin] AdvReac Intermediate MIGRAINES Verified 06/19/17 15 :53 fentanyl AdvReac Vomiting Verified 06/19/17 15:53 metoclopramide [From Reglan] AdvReac See Verified 06/19/17 15:53 Comments pioglitazone [From Actos] AdvReac See Verified 06/19/17 15:53 Comments tape Allergy Rash Uncoded 06/19/17 15:53 steroids AdvReac Hypertensio Uncoded 06/19/17 15:53 n - Constitutional Constitutional: fever(s), weakness, no chills, no night sweats - EENT Eyes: no blurry vision, no change in vision Ears: no ear pain, no tinnitus Nose, mouth and throat: no nasal congestion, no sinus pressure, no sore throat - Cardiovascular Cardiovascular ROS IM: no chest pain, no dyspnea, no dyspnea on exertion - Respiratory Respiratory: no dyspnea, no hemoptysis, no chest congestion - Gastrointestinal Gastrointestinal: no abdominal pain, no diarrhea, no nausea, no vomiting - Genitourinary Genitourinary: dysuria, flank pain, urinary urgency, no hematuria - Musculoskeletal Musculoskeletal ROS IM: back pain, no arthralgias - Integumentary Integumentary IM: rash (chronic) - Neurological Neurological ROS: no focal weakness, no frequent falls, no headache(s) - Psychiatric Psychiatric: no anxiety, no depression - Endocrine Endocrine IM: no polydipsia, no polyuria - Allergic/Immunologic Allergic/Immunologic: no GI upset with certain foods - Constitutional Vitals: Temp Pulse Resp BP Pulse Ox 98.4 F 111 16 145/88 94 07/20/17 00:17 07/20/17 00:17 07/20/17 00:17 07/20/17 00:17 07/20/17 00:17 General appearance: Present: cooperative, mild distress, A&O X 3, pleasant, answers questions appropriately - Head Head exam: Present: atraumatic, normal inspection - Expanded Head Exam Head exam expanded: Absent: abrasion, contusion - Eye Eye exam: Present: EOMI, PERRL. Absent: scleral icterus Pupils: Present: normal accommodation - ENT ENT exam: Present: mucous membranes dry, normal exam - Neck Neck exam general surgery: Present: full ROM, supple. Absent: lymphadenopathy, tenderness - Expanded Neck Exam Neck exam: Absent: carotid bruit - Respiratory Respiratory exam: Present: CTAB. Absent: chest wall tenderness, rales, rhonchi , wheezes - Cardiovascular Cardiovascular exam: Present: RRR, +S1, +S2, tachycardia (HR 90-105). Absent: diastolic murmur, JVD, systolic murmur - GI/Abdominal GI/Abdominal exam: Present: normal bowel sounds, soft, no peritoneal signs. Absent: guarding, hepatomegaly, mass, rebound, splenomegaly, tenderness - Extremities Exam Extremities exam: Present: full ROM, warm, radial pulses palpable and symmetrical. Absent: calf tenderness, joint swelling, tenderness - Back Exam Back exam: Present: CVA tenderness (R). Absent: CVA tenderness (L) - Neurological Exam Neurological exam: Present: alert, CN II-XII intact, oriented X3, no focal deficits - Psychiatric Psychiatric exam: Present: normal affect, normal mood - Skin Skin exam: Present: dry, pallor, rash (dry, scaling rash concerning for eczema) , warm Internal Med - H&P Results - Labs CBC & Chem 7: 07/19/17 18:28 07/19/17 18:28 - EKG Data -: EKG Interpreted by Myself Rate: tachycardia - EKG Data Prior EKG available for review: no EKG comments: 07/20/17 01:36 Sinus tahycardia; no acute ST-T changes; ? old inferior IN - Diagnostic Studies Chest x-ray Status: image reviewed by me (negative)
[2017-07-20] MEDS: hydrOXYzine pamoate 25 MG CAPSULE PO PRN ×2 (01:36→20:49)
[2017-07-20] MEDS: tiZANidine 4 MG TABLET PO PRN ×3 (01:36→18:09)
[2017-07-20] MEDS: Ondansetron 4 MG/2 ML VIAL IVP PRN ×2 (01:36→18:09)
[2017-07-20] MEDS: 0.9 % Sodium Chloride w KCl 20 MEQ/1,000 ML MLS IVC SCH ×2 (01:48→09:08)
[2017-07-20] MEDS ORDERED: Vancomycin 1,250 MG in D5% in Water 250 ML IVPB SCH (02:00)
[2017-07-20] MEDS: *HR* Heparin 5,000 UNIT/ML VIAL SQ SCH ×2 (04:50→18:05)
[2017-07-20 07:03] LABS: Alanine Aminotransferase 17 Units/L (0-55); Albumin/Globulin Ratio 0.7 (1.1-2.2); Alkaline Phosphatase 103 Units/L (38-126); Aspartate Amino Transferase 23 Units/L (5-34); BUN/Creatinine Ratio 21 (6-26); Bilirubin,Total 0.7 mg/dL (0.2-1.2); Blood Urea Nitrogen 16 mg/dL (7-20); Calcium 7.1 mg/dL (8.6-10.8); Carbon Dioxide 26 mEq/L (19-29); Chloride 102 mEq/L (98-109); Globulin 2.7 g/dL (2.4-3.5); Glucose 227 mg/dL (70-99); Magnesium 1.8 mg/dL (1.6-2.6); Osmolality,Calculated 292 (280-300); Potassium 3.2 mEq/L (3.5-4.5); Sodium 137 mEq/L (136-145); eGFR For African Americans > 60 (> 60); eGFR For Non-African Americans > 60 (> 60)
[2017-07-20 07:04] LABS: Total Protein 4.7 g/dL (6.0-8.3)
[2017-07-20 07:06] LABS: Basophils % 0.4 %; Eosinophils # 0.2 K/mcL (0.0-0.6); Eosinophils % 1.9 %; Hematocrit 28.5 % (35.3-44.9); Immature Granulocytes % 0.4 % (0-4); Lymphocytes # 2.1 K/mcL (0.6-4.6); Lymphocytes % 26.4 %; Mean Corpuscular HGB Conc 31.6 g/dL (31.6-35.5); Mean Corpuscular Hemoglobin 28.8 pg (28.0-33.3); Mean Corpuscular Volume 91.1 fL (83.0-100.0); Mean Platelet Volume 9.7 fL (9.4-12.4); Monocytes # 0.4 K/mcL (0.0-1.3); Monocytes % 5.1 %; Neutrophils # 5.1 K/mcL (1.6-8.9); Platelet Count 204 K/mcL (140-400); Red Blood Count 3.13 M/mcL (3.82-4.97); Red Cell Distribution Width 14.1 % (11.5-14.5); Segmented Neutrophils % 65.8 %
[2017-07-20] MEDS: Vancomycin 1,250 MG in D5% in Water 250 ML IVPB SCH ×2 (09:06→20:50)
[2017-07-20] MEDS: Gabapentin 300 MG CAPSULE PO SCH ×3 (09:07→20:49)
[2017-07-20] MEDS: cloNIDine HCl 0.1 MG TABLET PO SCH ×3 (09:07→20:50)
[2017-07-20] MEDS: Aspirin Enteric Coated 81 MG Tablet PO SCH (09:07)
[2017-07-20] MEDS: Piperacillin/Tazobactam 3.375 GM in D5% in Water (Mini-Bag+) 100 ML IVPB SCH ×2 (09:07→15:30)
[2017-07-20] MEDS: Multivit/Ca/Min/Fe/FA 1 TAB TABLET PO SCH (09:07)
[2017-07-20] MEDS ORDERED: Potassium Chloride Elixir 20 MEQ/15 ML UDC PO ONE (12:13)
--- NOTE | 2017-07-20 12:16 | Electrocardiograph Report ---
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
--- NOTE | 2017-07-20 12:32 | Electrocardiograph Report ---
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
--- NOTE | 2017-07-20 16:32 | Event Note ---
Date of Encounter: 07/20/17 Time of Encounter: 12:25 47-year-old female with history of fibromyalgia, diabetes and hypertension, admitted with generalized weakness and palpitations. Patient reports having tachycardia whenever she has underlying infection. Patient seen and examined at bedside. Reports feeling better and continues to have generalized aches and pain. Chest-S1, S2 heard, regular rate and rhythm, tachycardia noted. Lungs are clear to auscultation Skin-diffuse dry flaky rash over abdomen, bilateral posterior thighs, likely eczema or psoriasis Labs reviewed-ESR 68, WBC count decreased to normal, CRP 41, serum potassium 3.2 , lactic acid normal Hypokalemia-replace with oral potassium chloride. Likely due to use of diuretics at home. Suspected sepsis secondary to UTI-patient presented with mild leukocytosis and tachycardia. Urinalysis suggestive of UTI, follow up final urine culture. Previous urine cultures grew E.coli and Klebsiella, sensitive ti cephalosporins. Will change antibiotics to IV Rocephin and Vancomycin. Cellulitis-suspected areas of cellulitis in the rash on abdomen and lower extremities. Currently no erythema or induration. Less likely cellulitis. Patient would benefit from outpatient dermatology follow-up. Reports having had a previous skin biopsy showing psoriasis.
[2017-07-21] MEDS: tiZANidine 4 MG TABLET PO PRN ×2 (01:00→11:25)
[2017-07-21 05:22] LABS: BUN/Creatinine Ratio 17 (6-26); Blood Urea Nitrogen 12 mg/dL (7-20); Calcium 6.8 mg/dL (8.6-10.8); Carbon Dioxide 23 mEq/L (19-29); Chloride 105 mEq/L (98-109); Glucose 149 mg/dL (70-99); Osmolality,Calculated 287 (280-300); Sodium 137 mEq/L (136-145); eGFR For African Americans > 60 (> 60); eGFR For Non-African Americans > 60 (> 60)
[2017-07-21 05:23] LABS: Potassium 4.4 mEq/L (3.5-4.5)
[2017-07-21] MEDS: *HR* Heparin 5,000 UNIT/ML VIAL SQ SCH (06:45)
[2017-07-21] MEDS: hydrOXYzine pamoate 25 MG CAPSULE PO PRN (06:45)
[2017-07-21] MEDS: Ondansetron 4 MG/2 ML VIAL IVP PRN (06:46)
[2017-07-21 07:21] VITALS: BP 104/70
[2017-07-21] MEDS: Aspirin Enteric Coated 81 MG Tablet PO SCH (08:26)
[2017-07-21] MEDS: Multivit/Ca/Min/Fe/FA 1 TAB TABLET PO SCH (08:26)
[2017-07-21] MEDS: Gabapentin 300 MG CAPSULE PO SCH (08:27)
[2017-07-21] MEDS: cloNIDine HCl 0.1 MG TABLET PO SCH (08:27)
[2017-07-21] MEDS: Vancomycin 1,250 MG in D5% in Water 250 ML IVPB SCH (11:26)
--- NOTE | 2017-07-21 12:17 | Discharge Summary ---
Date of Encounter: 07/21/17 Time of Encounter: 12:00 - Discharge Diagnosis (1) Cellulitis of abdominal wall Priority: Primary Status: Ruled-out (2) Sepsis Priority: Primary Status: Ruled-out Qualifiers: Sepsis type: sepsis due to unspecified organism Qualified Code(s): A41.9 - Sepsis, unspecified organism (3) UTI (urinary tract infection) Priority: Primary Status: Ruled-out Qualifiers: Urinary tract infection type: acute cystitis Hematuria presence: without hematuria Qualified Code(s): N30.00 - Acute cystitis without hematuria (4) Generalized weakness Priority: Primary Status: Chronic (5) Hypokalemia Priority: Primary Status: Acute (6) Hypomagnesemia Priority: Primary Status: Acute (7) Hypertension Priority: Secondary Status: Chronic Qualifiers: Hypertension type: essential hypertension Qualified Code(s): I10 - Essential (primary) hypertension (8) Diabetes Priority: Secondary Status: Chronic Qualifiers: Diabetes mellitus type: type 2 Diabetes mellitus complication status: with unspecified complications Diabetes mellitus detention insulin use: without detention use Qualified Code(s): E11.8 - Type 2 diabetes mellitus with unspecified complications (9) Fibromyalgia Priority: Secondary Status: Chronic - Discharge Medications Home Medications: Aspirin Enteric Coated [Aspirin EC] 81 mg PO DAILY 05/30/15 [History] Meclizine [Antivert] 12.5 - 25 mg PO BID PRN 05/30/15 [History] Ondansetron [Zofran] 4 mg PO TID PRN 05/30/15 [History] cloNIDine HCl [CloNIDine HCl] 0.1 mg PO TID 08/23/15 [History] Ergocalciferol (VITAMIN D2) [Vitamin D2 (50,000 UNIT)] 50,000 unit PO 2XW [History] Sitagliptin Phosphate [Januvia] 50 mg PO DAILY 11/20/15 [History] Tizanidine HCl [Zanaflex] 4 - 8 mg PO QID PRN 11/20/15 [History] Promethazine [Phenergan] 25 mg PO Q6HR PRN #10 tablet 11/21/15 [Rx] Furosemide [Lasix] 40 mg PO TID PRN 07/04/16 [History] Gabapentin [Neurontin] 600 mg PO TID 07/04/16 [History] hydrOXYzine HCl [Hydroxyzine HCl] 25 mg PO TID PRN 07/04/16 [History] Cyanocobalamin (Vitamin B-12) [Vitamin B-12] 1,000 mcg SL Q48H 07/05/16 [History ] Chlorthalidone 25 mg PO DAILY 09/19/16 [History] Acetaminophen with Codeine [Acetaminophen-Cod #4 Tablet] 1 tab PO TID PRN [History] Lansoprazole [Prevacid] 30 mg PO DAILY 07/19/17 [History] Multivit-Minerals/Folic Acid [Adult Multivitamin Gummies] 200 mcg PO DAILY 07/19 [History] Nitrofurantoin [Macrodantin] 50 mg PO HS 07/19/17 [History] Allergies/Adverse Reactions: 3 Allergy/AdvReac Type Severity Reaction Status Date / Time morphine Allergy Severe Difficulty Verified 06/19/17 15:53 Breathing pregabalin [From Lyrica] AdvReac Severe Confusion Verified 06/19/17 15:53 prochlorperazine AdvReac Severe Hallucinati Verified 06/19/17 15:53 [From Compazine] ons Cyclobenzaprine AdvReac Intermediate INCREASED Verified 06/19/17 15:53 [From Flexeril] HEARTRATE methocarbamol [From Robaxin] AdvReac Intermediate MIGRAINES Verified 06/19/17 15 :53 fentanyl AdvReac Vomiting Verified 06/19/17 15:53 metoclopramide [From Reglan] AdvReac See Verified 06/19/17 15:53 Comments pioglitazone [From Actos] AdvReac See Verified 06/19/17 15:53 Comments tape Allergy Rash Uncoded 06/19/17 15:53 steroids AdvReac Hypertensio Uncoded 06/19/17 15:53 n Date of admission: 07/20/17 01:03 Primary care physician: Shahriar Bejarano Consults: 07/20/17 12:11 Consult to Physical Therapy [CONS] Routine Comment: Evaluate, develop and implement POC Reason for Consult: Generalized weakness 07/20/17 12:37 Consult to Serials Librarian [CONS] Routine Reason for SW Consult: D/C planning Discharging clinician: Dominique Pathak Anticipated date of discharge: 07/21/17 - Patient Status Disposition: Home, Self-Care Condition: Good Functional capacity at discharge: independent ambulation Overall status at discharge: patient is progressing back to baseline - Discharge Instructions Instructions: Hypokalemia (DC), Hypomagnesemia (DC) Follow Up With: Shahriar Bejarano MD [Primary Care Provider] - 08/01/17 9:15 am Additional Instructions: F/up with PCP in 1-2 weeks F/up with Dermatology in 1 week - Diet and Activity Activity: resume usual activities as tolerated Diet: diabetic diet, low fat, low cholesterol, low salt diet Hospital course: Ms. Mcdonald is a 47 year old female with multiple medical problems including chronic pain, fibromyalgia, depression and frequent hospital admissions, was admitted with complaint of palpitations, to r/o infection. Patient was treated for presumptive sepsis with UTI and abdominal wall cellulitis. Eventually, these were ruled out. Patient is noted to have diffuse dry erythematous papular rash over anterior abdominal wall and posterior thighs, which seems to be chronic with no evidence of infection. Urine and blood cultures remained negative. She was noted to have electrolyte abnormalities with hypokalemia and hypomagnesemia, which were appropriately supplemented. Patient remained hemodynamically stable with improved heart rate is currently medically stable for discharge with outpatient follow-up with dermatology. Physical and occupational therapy evaluation have been completed, recommend outpatient physical therapy, which patient already attends. - Time Spent with Patient Total time spent providing and/or coordinating discharge services: Greater than 30 minutes (40 min) - Constitutional Vitals: Temp Pulse Resp BP Pulse Ox 97.8 F 95 16 104/70 95 07/21/17 07:20 07/21/17 07:20 07/21/17 07:20 07/21/17 07:20 07/21/17 07:20 General appearance: Present: A&O X 3, answers questions appropriately - Respiratory Respiratory exam: Present: CTAB. Absent: accessory muscle use, rales, rhonchi, wheezes - Skin Skin exam: Present: dry, intact Additional comments: diffuse erythematous dry macular rash over abdomen and flanks, B/L posterior thighs- itchy, nontender, no e/o- infection
[2017-07-21] MEDS ORDERED: Aminoglycoside Consult 1 EACH MC ONE (14:20)
[2017-07-21] MEDS ORDERED: Vancomycin 750 MG in D5% in Water 250 ML IVPB SCH (16:00)
== END 2017-07-21 14:21 | disposition home or self-care (01) | DRG 641 ==
LOC: EMEROO 16:58 → 3BNU 16:58 → SUATTDRO 07-20 01:03
PROVIDERS: ADMIT Family Medicine; ATTEND Internal Medicine

== ENCOUNTER 2017-07-24 23:21 | Observation (INO) ==
[2017-07-25 01:19] LABS: Bilirubin,Urine Small (Negative); Blood,Urine Negative (Negative); Clarity,Urine Clear (Clear); Color,Urine Yellow (Yellow); Glucose,Urine (UA) Normal (Normal); Ketones,Urine Negative (Negative); Leukocyte Esterase,Urine Trace (Negative); Nitrite,Urine Negative (Negative); Protein,Urine Negative (Neg-Trace); Specific Gravity,Urine 1.022 (1.010-1.025); Urobilinogen,Urine Normal (Normal)
[2017-07-25 01:22] LABS: Bacteria,Urine None Seen per hpf (None-Few); Hyaline Casts,Urine None Seen per lpf (None-Few); RBC,Urine 0-3 per hpf (0-3); Squamous Epithelial Cell,Urine Moderate per lpf (None-Few)
[2017-07-25 02:09] LABS: Basophils # 0.1 K/mcL (0.0-0.2); Basophils % 0.4 %; Eosinophils # 0.4 K/mcL (0.0-0.6); Eosinophils % 3.5 %; Hematocrit 37.8 % (35.3-44.9); Immature Granulocytes % 0.3 % (0-4); Lymphocytes % 21.1 %; Mean Corpuscular HGB Conc 30.4 g/dL (31.6-35.5); Mean Corpuscular Hemoglobin 28.2 pg (28.0-33.3); Mean Corpuscular Volume 92.6 fL (83.0-100.0); Mean Platelet Volume 8.9 fL (9.4-12.4); Monocytes # 0.4 K/mcL (0.0-1.3); Monocytes % 3.2 %; Platelet Count 321 K/mcL (140-400); Red Blood Count 4.08 M/mcL (3.82-4.97); Red Cell Distribution Width 15.1 % (11.5-14.5); Segmented Neutrophils % 71.5 %
[2017-07-25 02:10] LABS: Hemoglobin 11.5 g/dL (11.5-15.4); Lymphocytes # 2.6 K/mcL (0.6-4.6); Neutrophils # 8.7 K/mcL (1.6-8.9)
[2017-07-25 02:27] LABS: Alanine Aminotransferase 27 Units/L (0-55); Albumin 2.6 g/dL (3.5-5.0); Albumin/Globulin Ratio 0.7 (1.1-2.2); Alkaline Phosphatase 148 Units/L (38-126); Aspartate Amino Transferase 29 Units/L (5-34); BUN/Creatinine Ratio 11 (6-26); Bilirubin,Direct 0.3 mg/dL (0.0-0.5); Bilirubin,Indirect 0.3 mg/dL (0.0-1.2); Bilirubin,Total 0.6 mg/dL (0.2-1.2); Blood Urea Nitrogen 11 mg/dL (7-20); Calcium 8.5 mg/dL (8.6-10.8); Carbon Dioxide 28 mEq/L (19-29); Chloride 101 mEq/L (98-109); Globulin 3.8 g/dL (2.4-3.5); Glucose 148 mg/dL (70-99); Lipase 18 Units/L (8-78); Osmolality,Calculated 292 (280-300); Potassium 2.8 mEq/L (3.5-4.5); Sodium 140 mEq/L (136-145); Total Protein 6.4 g/dL (6.0-8.3); eGFR For African Americans > 60 (> 60); eGFR For Non-African Americans > 60 (> 60)
[2017-07-25] MEDS ORDERED: *HR* HYDROmorphone (PF) 1 MG/ML SYRINGE IVP ONE (04:37)
[2017-07-25 05:16] LABS: Magnesium 1.5 mg/dL (1.6-2.6)
--- NOTE | 2017-07-25 05:56 | Emergency Department Note ---
Disposition Clinical Impression: Abdominal pain Disposition: Admitted As Inpatient Condition: Good Referrals: NONE,PCP [Primary Care Provider] - Abdominal Pain HPI - General Chief Complaint: ED Abdominal Pain Stated Complaint: abdominal/leg swelling not urinating Time Seen by Provider: 07/24/17 23:26 Source: patient, family Mode of arrival: ambulatory Limitations: no limitations Nursing Notes Reviewed: Yes Vital Signs Reviewed: Yes - History of Present Illness HPI Narrative: 47-year-old female presents emergency Department with concerns of abdominal pain and bilateral lower extremity swelling. Patient states he was recently admitted to the hospital for hypokalemia and cellulitis and possible sepsis. She states she was given multiple doses of IV fluids and has had significant swelling of her lower extremities since that time. Patient states she is unable to urinate over the past 24 hours without having pain. Patient states she is also not had a bowel movement over the past 2 days. Has a history of a gastric bypass Pain Scale: 2 - Related Data Home Medications Medication Instructions Recorded Confirmed Aspirin Enteric Coated [Aspirin EC] 81 mg PO DAILY 05/30/15 07/19/17 Meclizine [Antivert] 12.5 - 25 mg PO BID PRN 05/30/15 07/19/17 Ondansetron [Zofran] 4 mg PO TID PRN 05/30/15 07/19/17 cloNIDine HCl [CloNIDine HCl] 0.1 mg PO TID 08/23/15 07/19/17 Ergocalciferol (VITAMIN D2) 50,000 unit PO 2XW 10/24/15 07/19/17 [Vitamin D2 (50,000 UNIT)] Sitagliptin Phosphate [Januvia] 50 mg PO DAILY 11/20/15 07/19/17 Tizanidine HCl [Zanaflex] 4 - 8 mg PO QID PRN 11/20/15 07/19/17 Furosemide [Lasix] 40 mg PO TID PRN 07/04/16 07/19/17 Gabapentin [Neurontin] 600 mg PO TID 07/04/16 07/19/17 hydrOXYzine HCl [Hydroxyzine HCl] 25 mg PO TID PRN 07/04/16 07/19/17 Cyanocobalamin (Vitamin B-12) 1,000 mcg SL Q48H 07/05/16 07/19/17 [Vitamin B-12] Chlorthalidone 25 mg PO DAILY 09/19/16 07/19/17 Acetaminophen with Codeine 1 tab PO TID PRN 02/05/17 07/19/17 [Acetaminophen-Cod #4 Tablet] Lansoprazole [Prevacid] 30 mg PO DAILY 07/19/17 07/19/17 Multivit-Minerals/Folic Acid 200 mcg PO DAILY 07/19/17 07/19/17 [Adult Multivitamin Gummies] Nitrofurantoin [Macrodantin] 50 mg PO HS 07/19/17 07/19/17 Previous Rx's Medication Instructions Recorded Promethazine [Phenergan] 25 mg PO Q6HR PRN #10 tablet 11/21/15 Allergies Allergy/AdvReac Type Severity Reaction Status Date / Time morphine Allergy Severe Difficulty Verified 07/24/17 23:59 Breathing pregabalin [From Lyrica] AdvReac Severe Confusion Verified 07/24/17 23:59 prochlorperazine AdvReac Severe Hallucinati Verified 07/24/17 23:59 [From Compazine] ons Cyclobenzaprine AdvReac Intermediate INCREASED Verified 07/24/17 23:59 [From Flexeril] HEARTRATE methocarbamol [From Robaxin] AdvReac Intermediate MIGRAINES Verified 07/24/17 23 :59 fentanyl AdvReac Vomiting Verified 07/24/17 23:59 metoclopramide [From Reglan] AdvReac See Verified 07/24/17 23:59 Comments pioglitazone [From Actos] AdvReac See Verified 07/24/17 23:59 Comments tape Allergy Rash Uncoded 06/19/17 15:53 steroids AdvReac Hypertensio Uncoded 06/19/17 15:53 n All systems ED: reviewed and negative except as stated. Review of Systems: As Per HPI Constitutional: Denies: fever, chills, weakness Cardiovascular: Denies: chest pain, palpitations, dyspnea on exertion Respiratory: Denies: cough, dyspnea, wheezes Gastrointestinal: Reports: abdominal pain, nausea, constipation. 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 Normal perfusion present Respiratory: CTAB, no wheezing, cough, or respiratory distress Musculoskeletal: Normal strength, +2 pitting edema to the bilateral lower extremities to the level of the superior thigh GI: Soft, mild tenderness to palpation of the suprapubic region without evidence of rigidity, guarding, or rebound. nondistended. Bowel sounds present Neuro: A&O to person, place, time and situation. No focal deficits noted on exam Psychiatric: cooperative and appropriate mood and affect. - General Limitations: no limitations General appearance: alert Course Vital Signs Temperature 98 F 07/24/17 23:54 Pulse Rate 102 07/24/17 23:54 Respiratory Rate 18 07/24/17 23:54 Blood Pressure 118/72 07/24/17 23:54 O2 Sat by Pulse Oximetry 99 07/24/17 23:54 Temperature 98 F 07/24/17 23:54 Pulse Rate 99 07/25/17 05:20 Respiratory Rate 24 07/25/17 05:20 Blood Pressure 152/89 07/25/17 05:20 O2 Sat by Pulse Oximetry 100 07/25/17 05:20 Oxygen Delivery Oxygen Delivery Room Air Abdominal Pain - MDM Narrative Medical decision making narrative: Patient is hypokalemic and has bilateral pitting edema which should be dialyzed. Patient will need to be admitted to the hospital for careful diuresis and replacement of her potassium. Patient is also concerned about a diffuse rash present to the torso and bilateral lower extremities. Patient states that this rash has been present for more than the past week. Denies recent fevers. Urinalysis was negative for urinary tract infection. Abdominal pain improved after placement of Bella catheter however there is only return of 200 mL of fluid. Patient comfortable with the plan to be admitted to the hospital for further care and evaluation. - Medical Records Medical records reviewed: Yes I reviewed the patient's medical records. - Lab Data Lab results reviewed: Yes I reviewed the patient's lab results. Result diagrams: 07/25/17 02:05 07/25/17 02:05 Lab Results 07/25/17 07/25/17 07/25/17 Range/Units 00:55 00:55 02:05 WBC 12.1 H D (4.3-11.1) K/mcL RBC 4.08 (3.82-4.97) M/mcL Hgb 11.5 D (11.5-15.4) g/dL Hct 37.8 (35.3-44.9) % MCV 92.6 (83.0-100.0) fL MCH 28.2 (28.0-33.3) pg MCHC 30.4 L (31.6-35.5) g/dL RDW 15.1 H (11.5-14.5) % Plt Count 321 D (140-400) K/mcL MPV 8.9 L (9.4-12.4) fL Immature Gran % 0.3 (0-4) % Seg Neutrophils % 71.5 % Lymphocytes % 21.1 % Monocytes % 3.2 % Eosinophils % 3.5 % Basophils % 0.4 % Neutrophils # 8.7 (1.6-8.9) K/mcL Lymphocytes # 2.6 (0.6-4.6) K/mcL Monocytes # 0.4 (0.0-1.3) K/mcL Eosinophils # 0.4 (0.0-0.6) K/mcL Basophils # 0.1 (0.0-0.2) K/mcL Sodium (136-145) mEq/L Potassium (3.5-4.5) mEq/L Chloride (98-109) mEq/L Carbon Dioxide (19-29) mEq/L BUN (7-20) mg/dL Creatinine (0.57-1.11) mg/dL Est GFR ( Amer) (> 60) Est GFR (Non-Af Amer) (> 60) BUN/Creatinine Ratio (6-26) Glucose (70-99) mg/dL Calculated Osmolality (280-300) Calcium (8.6-10.8) mg/dL Magnesium (1.6-2.6) mg/dL Total Bilirubin (0.2-1.2) mg/dL Direct Bilirubin (0.0-0.5) mg/dL Indirect Bilirubin (0.0-1.2) mg/dL AST (5-34) Units/L ALT (0-55) Units/L Alkaline Phosphatase (38-126) Units/L Serum Total Protein (6.0-8.3) g/dL Albumin (3.5-5.0) g/dL Globulin (2.4-3.5) g/dL Albumin/Globulin Ratio (1.1-2.2) Lipase (8-78) Units/L Urine Color Yellow (Yellow) Urine Clarity Clear (Clear) Urine pH 5.0 (5.0-8.0) pH Units Ur Specific [place] 1.022 (1.010-1.025) Urine Protein Negative (Neg-Trace) mg/dL Urine Glucose (UA) Normal (Normal) mg/dL Urine Ketones Negative (Negative) mg/dL Urine Blood Negative (Negative) Urine Nitrite Negative (Negative) Urine Bilirubin Small H (Negative) Urine Urobilinogen Normal (Normal) mg/dL Ur Leukocyte Esterase Trace H (Negative) Urine Microscopic RBC 0-3 (0-3) per hpf Urine Microscopic WBC 3-5 H (0-3) per hpf Ur Squamous Epith Cells Moderate H (None-Few) per lpf Urine Bacteria None Seen (None-Few) per hpf Hyaline Casts None Seen (None-Few) per lpf Ur Culture Indicated? YES A (NO) Urine Test Negative (Negative) 07/25/17 Range/Units 02:05 WBC (4.3-11.1) K/mcL RBC (3.82-4.97) M/mcL Hgb (11.5-15.4) g/dL Hct (35.3-44.9) % MCV (83.0-100.0) fL MCH (28.0-33.3) pg MCHC (31.6-35.5) g/dL RDW (11.5-14.5) % Plt Count (140-400) K/mcL MPV (9.4-12.4) fL Immature Gran % (0-4) % Seg Neutrophils % % Lymphocytes % % Monocytes % % Eosinophils % % Basophils % % Neutrophils # (1.6-8.9) K/mcL Lymphocytes # (0.6-4.6) K/mcL Monocytes # (0.0-1.3) K/mcL Eosinophils # (0.0-0.6) K/mcL Basophils # (0.0-0.2) K/mcL Sodium 140 (136-145) mEq/L Potassium 2.8 L (3.5-4.5) mEq/L Chloride 101 (98-109) mEq/L Carbon Dioxide 28 (19-29) mEq/L BUN 11 (7-20) mg/dL Creatinine 0.97 (0.57-1.11) mg/dL Est GFR ( Amer) > 60 (> 60) Est GFR (Non-Af Amer) > 60 (> 60) BUN/Creatinine Ratio 11 (6-26) Glucose 148 H (70-99) mg/dL Calculated Osmolality 292 (280-300) Calcium 8.5 L (8.6-10.8) mg/dL Magnesium 1.5 L (1.6-2.6) mg/dL Total Bilirubin 0.6 (0.2-1.2) mg/dL Direct Bilirubin 0.3 (0.0-0.5) mg/dL Indirect Bilirubin 0.3 (0.0-1.2) mg/dL AST 29 (5-34) Units/L ALT 27 (0-55) Units/L Alkaline Phosphatase 148 H (38-126) Units/L Serum Total Protein 6.4 (6.0-8.3) g/dL Albumin 2.6 L (3.5-5.0) g/dL Globulin 3.8 H (2.4-3.5) g/dL Albumin/Globulin Ratio 0.7 L (1.1-2.2) Lipase 18 (8-78) Units/L Urine Color (Yellow) Urine Clarity (Clear) Urine pH (5.0-8.0) pH Units Ur Specific [place] (1.010-1.025) Urine Protein (Neg-Trace) mg/dL Urine Glucose (UA) (Normal) mg/dL Urine Ketones (Negative) mg/dL Urine Blood (Negative) Urine Nitrite (Negative) Urine Bilirubin (Negative) Urine Urobilinogen (Normal) mg/dL Ur Leukocyte Esterase (Negative) Urine Microscopic RBC (0-3) per hpf Urine Microscopic WBC (0-3) per hpf Ur Squamous Epith Cells (None-Few) per lpf Urine Bacteria (None-Few) per hpf Hyaline Casts (None-Few) per lpf Ur Culture Indicated? (NO) Urine Test (Negative) - Radiology Data Radiology results reviewed: Yes I reviewed the patient's radiology results. - EKG Data EKG attestation: Yes I reviewed and interpreted this EKG.
[2017-07-25] MEDS ORDERED: hydrOXYzine pamoate 25 MG CAPSULE PO PRN (08:04)
--- NOTE | 2017-07-25 08:08 | Internal Med History&Physical ---
Date of Encounter: 07/25/17 Time of Encounter: 08:07 Assessment and Plan (1) Urinary retention with incomplete bladder emptying Current visit: Yes Status: Acute will contact urology to assist with further recs Now s/p cosme in the ED UA looks unchanged from prior On macrobid chronic therapy (2) Fluid overload Current visit: Yes Status: Acute likely 2/2 to fluids last admission. Suspect CT A/P findings related to edema of bowels Trial of IV lasix with K and Mg replacement Qualifiers: Hypervolemia type: other Qualified Code(s): E87.79 - Other fluid overload (3) Hypokalemia Current visit: No Status: Acute K replacement (4) Hypomagnesemia Current visit: No Status: Acute Mg replacement (5) Rash and nonspecific skin eruption Current visit: Yes Status: Acute reported prior bx with psoriasis. Does not appear acute but would consider inpatient Derm assessment and management if possible Has outpatient appt for December 2017 as she is unable to get appt sooner Internal Medicine - H&P: HPI Chief complaint: 1) 12-10 lb weight gain, 2) Unable to urinate , 3)scaly rash over abdo/leg History of present illness: Ms. Mcdonald is a 47 year old female who presents with 1) 12-10 lb weight gain, 2 ) Unable to urinate , 3)scaly rash over abdo/leg She has a hx of LUTS and has been establish with Dr Peralta of urology in the last few months and has been placed on chronic macrobid, she did have albright sensitive UTI prior on 05/2017 with recent cx negative. She reported recurrent symptoms of LUTS with "unable to pee", "pressure", "urge but unable to go" since tuesday and all day yesterday. Associated with lower abdo discomfort. Cosme was placed in the ED and had approx 600 CC out per my bedside rough assessment. She also reports of 12-10 lbs weight gain since last week related to her prior admission from where she received fluid. Fluid gain in her LE and belly. She takes prn lasix but has not done so probably 2/2 worsening hypokalemia and hypomag. She also reports chronic scaly skin rash over ther thighs, back and abdomen that is pruritic in nature. Apparently prior bx reported psoriasis. She is having trouble scheduling an expedited outpatient derm appt but is not until december 2017. She has attempted topical cortisone with limited success. Past Med Surg Social Fam HX - Past Medical History Medical history: diabetes, fibromyalgia, GERD, hypertension, osteoporosis Psychiatric history: no psych history - Past Surgical History Surgical History: cholecystectomy, herniorrhaphy, other, bariatric surgery ( gastric bypass, with revision in 2013) - Social History Smoking Status: Never smoker Smokeless Tobacco Status: No Alcohol use: none Drug use: none - Family History Father Living Status: Hx Family Cardiac Disorders: Yes (HTN) Hx Family Respiratory Disorders: Yes (COPD) Grandfather Hx Family Cardiac Disorders: Yes (HTN, BYPASS) Grandmother Hx Family Cardiac Disorders: Yes (CVA) Hx Family Neuromuscular Disorders: Yes (CVA) Hx Family Neurologic Disorders: Yes (CVA) Internal Medicine - H&P: Meds Aspirin Enteric Coated [Aspirin EC] 81 mg PO DAILY 05/30/15 [History] Meclizine [Antivert] 12.5 - 25 mg PO BID PRN 05/30/15 [History] Ondansetron [Zofran] 4 mg PO TID PRN 05/30/15 [History] cloNIDine HCl [CloNIDine HCl] 0.1 mg PO TID 08/23/15 [History] Ergocalciferol (VITAMIN D2) [Vitamin D2 (50,000 UNIT)] 50,000 unit PO 2XW [History] Sitagliptin Phosphate [Januvia] 50 mg PO DAILY 11/20/15 [History] Tizanidine HCl [Zanaflex] 4 - 8 mg PO QID PRN 11/20/15 [History] Promethazine [Phenergan] 25 mg PO Q6HR PRN #10 tablet 11/21/15 [Rx] Furosemide [Lasix] 40 mg PO TID PRN 07/04/16 [History] Gabapentin [Neurontin] 600 mg PO TID 07/04/16 [History] hydrOXYzine HCl [Hydroxyzine HCl] 25 mg PO TID PRN 07/04/16 [History] Cyanocobalamin (Vitamin B-12) [Vitamin B-12] 1,000 mcg SL Q48H 07/05/16 [History ] Chlorthalidone 25 mg PO DAILY 09/19/16 [History] Acetaminophen with Codeine [Acetaminophen-Cod #4 Tablet] 1 tab PO TID PRN [History] Lansoprazole [Prevacid] 30 mg PO DAILY 07/19/17 [History] Multivit-Minerals/Folic Acid [Adult Multivitamin Gummies] 200 mcg PO DAILY 07/19 [History] Nitrofurantoin [Macrodantin] 50 mg PO HS 07/19/17 [History] 3 Allergy/AdvReac Type Severity Reaction Status Date / Time morphine Allergy Severe Difficulty Verified 07/24/17 23:59 Breathing pregabalin [From Lyrica] AdvReac Severe Confusion Verified 07/24/17 23:59 prochlorperazine AdvReac Severe Hallucinati Verified 07/24/17 23:59 [From Compazine] ons Cyclobenzaprine AdvReac Intermediate INCREASED Verified 07/24/17 23:59 [From Flexeril] HEARTRATE methocarbamol [From Robaxin] AdvReac Intermediate MIGRAINES Verified 07/24/17 23 :59 fentanyl AdvReac Vomiting Verified 07/24/17 23:59 metoclopramide [From Reglan] AdvReac See Verified 07/24/17 23:59 Comments pioglitazone [From Actos] AdvReac See Verified 07/24/17 23:59 Comments tape Allergy Rash Uncoded 06/19/17 15:53 steroids AdvReac Hypertensio Uncoded 06/19/17 15:53 n All Systems PM: A 10-system review of systems was performed and is negative for pertinent findings except as documented above in the HPI. Review of systems: ROS 14 point review of systems reviewed as best as possible given presentation. Pertinent positive or negative as per HPI or otherwise reviewed as negative - Constitutional Vitals: Temp Pulse Resp BP Pulse Ox 98.5 F 111 17 140/77 99 07/25/17 07:52 07/25/17 07:52 07/25/17 07:52 07/25/17 07:52 07/25/17 07:52 Exam: General - AAO x 3 Psych - Appropriate affect/speech. No agitation Eyes - JESU. Eye lids intact. No scleral icterus Neuro - No gross peripheral or central neuro deficits on inspection Heart - Sinus. RRR. S1 and S2 present. No added HS/murmurs appreciated. No elevated JVD appreciated. Lung - Adequate air entry b/l, No crackles/wheezes appreciated GI - lower abdominal, suprapubic discomfort. No guarding or rigidity. No hepatosplenomegaly/ascites. BS+ Skin - diffuse scaly rash over her thighs and abdomen and back MSK - Joints with normal ROM. No joint swellings Internal Med - H&P Results - Labs CBC & Chem 7: 07/25/17 02:05 07/25/17 02:05 - Impressions Impressions Abdomen/Pelvis CT 07/25/17 02:27 IMPRESSION: 1. Compared to prior study there is mild diffuse mesenteric induration/stranding with small amount of interloop bowel fluid as well small fluid within the lower abdomen and pelvis. Findings of uncertain etiology as no other definite abnormality detected. The differential diagnosis includes third-spacing of fluids as there is diffuse increased body wall edema as well. . Other subtle inflammatory processes such as pancreatitis or enteritis are felt less likely but possible. 2. Stool with fatty components is seen throughout the colon, likely representing malabsorption. 3. Hepatic steatosis. 4. No evidence of appendicitis. D/ / Christiano Allen MD / Christiano Allen MD Interpreting Provider: Christiano Allen MD
[2017-07-25] MEDS ORDERED: Magnesium Sulfate 4 GM in D5% in Water 100 ML IVPB ONE (08:09)
[2017-07-25] MEDS ORDERED: *HR* OxyCODONE/APAP 5/325 TABLET PO PRN (09:05)
[2017-07-25] MEDS ORDERED: Naloxone 0.4 MG/ML INJ IVP PRN (09:59)
[2017-07-25] MEDS: *HR* SitaGLIPtin 100 MG TABLET PO SCH (10:42)
[2017-07-25] MEDS: Furosemide 40 MG/4 ML VIAL IVP SCH (10:42)
[2017-07-25] MEDS: Magnesium Sulfate 2 GM in D5% in Water 100 ML IVPB SCH ×2 (10:42→11:50)
[2017-07-25] MEDS: Ondansetron ODT 4 MG TAB.RAPDIS PO PRN (10:43)
[2017-07-25] MEDS: Aspirin Enteric Coated 81 MG Tablet PO SCH (10:43)
[2017-07-25] MEDS: Cyanocobalamin (B-12) 1,000 MCG TABLET PO SCH (10:43)
[2017-07-25] MEDS: cloNIDine HCl 0.1 MG TABLET PO SCH ×3 (10:43→21:36)
[2017-07-25] MEDS: Gabapentin 300 MG CAPSULE PO SCH ×3 (10:44→21:36)
--- NOTE | 2017-07-25 12:02 | Dermatology Consult Note ---
Date of Encounter: 07/25/17 Time of Encounter: 12:00 History of Present Illness Reason for Consult: Rash History of Present Illness: Janett Tovar is a 47 year old female admitted for urinary retention and fluid overload. She reports a rash on and off starting near her groin over several months ago. However, she reports that she has always had different rashes on her skin for years. She has a biopsy from 2013 showing psoriasis. Over the last few months the rash in her groin has spread to her legs, back, right chest, hands bilaterally. She reports moderate intermittent itching. She denies pain. She has had extreme swelling due to urinary retention. She has tried over the counter cortisone on her skin with little help. She was given diflucan by urgent care with little relief. Review of Systems Additional Comments: General/Constitutional: Patient denies fevers, chills, no recent unintended weight loss, night sweats, no change in appetite or malaise.. Hematology: Patient denies new or enlarging lumps or bumps.. Skin: Patient denies new or changing moles, or rash other than what is mentioned above.. General/Constitutional: Patient denies fevers, chills, nor recent unintended weight loss, night sweats, no change in appetite or malaise. Hematologic: Patient denies new or enlarging lumps or bumps. Skin: Patient denies new or changing moles, or rash other than what is mentioned above. Past Med Surg Social Fam HX - Past Medical History Medical history: diabetes, fibromyalgia, GERD, hypertension, osteoporosis Psychiatric history: no psych history - Past Surgical History Surgical History: cholecystectomy, herniorrhaphy, other, bariatric surgery - Social History Smoking Status: Never smoker Smokeless Tobacco Status: No Alcohol use: none Drug use: none - Family History Father Living Status: Hx Family Cardiac Disorders: Yes (HTN) Hx Family Respiratory Disorders: Yes (COPD) Grandfather Hx Family Cardiac Disorders: Yes (HTN, BYPASS) Grandmother Hx Family Cardiac Disorders: Yes (CVA) Hx Family Neuromuscular Disorders: Yes (CVA) Hx Family Neurologic Disorders: Yes (CVA) Medications and Allergies Aspirin Enteric Coated [Aspirin EC] 81 mg PO DAILY 05/30/15 [History] Meclizine [Antivert] 12.5 - 25 mg PO BID PRN 05/30/15 [History] Ondansetron [Zofran] 4 mg PO TID PRN 05/30/15 [History] cloNIDine HCl [CloNIDine HCl] 0.1 mg PO TID 08/23/15 [History] Ergocalciferol (VITAMIN D2) [Vitamin D2 (50,000 UNIT)] 50,000 unit PO 2XW [History] Sitagliptin Phosphate [Januvia] 50 mg PO DAILY 11/20/15 [History] Tizanidine HCl [Zanaflex] 4 - 8 mg PO QID PRN 11/20/15 [History] Promethazine [Phenergan] 25 mg PO Q6HR PRN #10 tablet 11/21/15 [Rx] Furosemide [Lasix] 40 mg PO TID PRN 07/04/16 [History] Gabapentin [Neurontin] 600 mg PO TID 07/04/16 [History] hydrOXYzine HCl [Hydroxyzine HCl] 25 mg PO TID PRN 07/04/16 [History] Cyanocobalamin (Vitamin B-12) [Vitamin B-12] 1,000 mcg SL Q48H 07/05/16 [History ] Chlorthalidone 25 mg PO DAILY 09/19/16 [History] Acetaminophen with Codeine [Acetaminophen-Cod #4 Tablet] 1 tab PO TID PRN [History] Lansoprazole [Prevacid] 30 mg PO DAILY 07/19/17 [History] Multivit-Minerals/Folic Acid [Adult Multivitamin Gummies] 200 mcg PO DAILY 07/19 [History] Nitrofurantoin [Macrodantin] 50 mg PO HS 07/19/17 [History] 3 Allergy/AdvReac Type Severity Reaction Status Date / Time morphine Allergy Severe Difficulty Verified 07/24/17 23:59 Breathing pregabalin [From Lyrica] AdvReac Severe Confusion Verified 07/24/17 23:59 prochlorperazine AdvReac Severe Hallucinati Verified 07/24/17 23:59 [From Compazine] ons Cyclobenzaprine AdvReac Intermediate INCREASED Verified 07/24/17 23:59 [From Flexeril] HEARTRATE methocarbamol [From Robaxin] AdvReac Intermediate MIGRAINES Verified 07/24/17 23 :59 fentanyl AdvReac Vomiting Verified 07/24/17 23:59 metoclopramide [From Reglan] AdvReac See Verified 07/24/17 23:59 Comments pioglitazone [From Actos] AdvReac See Verified 07/24/17 23:59 Comments tape Allergy Rash Uncoded 06/19/17 15:53 steroids AdvReac Hypertensio Uncoded 06/19/17 15:53 n Examination Vital Signs: Temp Pulse Resp BP Pulse Ox 98.5 F 111 17 140/77 99 07/25/17 07:52 07/25/17 07:52 07/25/17 07:52 07/25/17 07:52 07/25/17 07:52 General Examination: The patient appears alert, oriented X3, in no acute distress, healthy-appearing , normal mood. A detailed skin examination of sites including: scalp, head, neck , face, conjunctive, lids, lips, back, chest/breast/axilla, abdomen, bilateral upper extremities including hands/digits/fingernails, bilateral lower extremities including feet/digits/toenails, genital/groin/buttock, lymph nodes, was completed and found to be normal except: [place] patches with ovelrying dry "cracked [place]" scale on lower back, buttocks, anterior and posterior thighs bilaterally, abdomen, posterior lower legs, popliteal fossa bilaterally, right chest, erythema on dorsal hands between fingers bilaterally - no burrows noted. No nail pitting - Assessment and Plan (1) Psoriasiform dermatitis Current Visit: Yes Status: Acute (2) Psoriasiform dermatitis Current Visit: Yes Status: Acute (3) Spongiotic psoriasiform dermatitis Current Visit: Yes Status: Acute Advised gentle cleansing wash like dove, cetaphil or cerave Advised avoidance of long hot showers and baths -- prefer luke warm short showers and baths recommend use of thick moisturizer like cerave, cetaphil moisturizing cream immediately after bathing ( within 3 minutes) daily recommend Triamcionlone 0.1 % moisturizing cream to affected areas of rash twic daily x 2 weeks to follow up in dermatology outpatient 1-2 weeks after discharge Procedure: Dermatology Date of procedure: 07/25/17 (no procedure) Consult Discharge Plan - Plan Referrals: NONE,PCP [Primary Care Provider] -
--- NOTE | 2017-07-25 12:12 | Urology - Consult Note ---
Date of Encounter: 07/25/17 Time of Encounter: 12:09 - Assessment and Plan (1) Urinary retention with incomplete bladder emptying Current Visit: Yes Status: Acute Assessment and plan: 47-year-old woman with a history of urinary retention. She has an indwelling catheter. She reports that she had issues with urinary retention after her gastric bypass. I reviewed her CT scan. There is no evidence of hydronephrosis. Her renal function is normal. She does have a large amount of stool within her colon. It is likely that the constipation may be affecting her bladder as well. Now she is being diuresed, I recommend to continue her Bella catheter. We can consider removal of the catheter prior to discharge. She denies any neurologic changes. Lastly, her urine culture was negative. I recommend the primary team worked aggressively manage her bowels to improve her constipation. I will continue to follow along. Thank you very much for allowing me to participate in the care of this patient. Please call if questions. Urology CN:HPI Consult date: 07/25/17 Reason for consult Urology: Other (Urinary retention) Requesting physician: Monique Giles History of present illness: 47-year-old woman well known to urology service with a history of urinary tract infections and gastric bypass was admitted for urinary retention. She had difficulty voiding beginning about 2 days ago. Yesterday she is not able to urinate at all and came to the emergency department. A catheter was placed. She then had a CT scan. The CT showed evidence of constipation. The catheter was in good position. There is no concerning lesions within the kidneys. She says she has noted some peripheral edema. She has been given some Lasix and is diuresing currently. She reports that she's been having difficulty moving her bowels. Her last bowel movement was approximately 5 days ago. She denies any neurologic changes. She denies any blurry vision, paresthesias, muscle weakness, or areas of numbness. Past Med Surg Social Fam HX - Past Medical History Medical history: diabetes, fibromyalgia, GERD, hypertension, osteoporosis Psychiatric history: no psych history - Past Surgical History Surgical History: cholecystectomy, herniorrhaphy, other, bariatric surgery - Social History Smoking Status: Never smoker Smokeless Tobacco Status: No Alcohol use: none Drug use: none - Family History Father Living Status: Hx Family Cardiac Disorders: Yes (HTN) Hx Family Respiratory Disorders: Yes (COPD) Grandfather Hx Family Cardiac Disorders: Yes (HTN, BYPASS) Grandmother Hx Family Cardiac Disorders: Yes (CVA) Hx Family Neuromuscular Disorders: Yes (CVA) Hx Family Neurologic Disorders: Yes (CVA) Medications and Allergies Aspirin Enteric Coated [Aspirin EC] 81 mg PO DAILY 05/30/15 [History] Meclizine [Antivert] 12.5 - 25 mg PO BID PRN 05/30/15 [History] Ondansetron [Zofran] 4 mg PO TID PRN 05/30/15 [History] cloNIDine HCl [CloNIDine HCl] 0.1 mg PO TID 08/23/15 [History] Ergocalciferol (VITAMIN D2) [Vitamin D2 (50,000 UNIT)] 50,000 unit PO 2XW [History] Sitagliptin Phosphate [Januvia] 50 mg PO DAILY 11/20/15 [History] Tizanidine HCl [Zanaflex] 4 - 8 mg PO QID PRN 11/20/15 [History] Promethazine [Phenergan] 25 mg PO Q6HR PRN #10 tablet 11/21/15 [Rx] Furosemide [Lasix] 40 mg PO TID PRN 07/04/16 [History] Gabapentin [Neurontin] 600 mg PO TID 07/04/16 [History] hydrOXYzine HCl [Hydroxyzine HCl] 25 mg PO TID PRN 07/04/16 [History] Cyanocobalamin (Vitamin B-12) [Vitamin B-12] 1,000 mcg SL Q48H 07/05/16 [History ] Chlorthalidone 25 mg PO DAILY 09/19/16 [History] Acetaminophen with Codeine [Acetaminophen-Cod #4 Tablet] 1 tab PO TID PRN [History] Lansoprazole [Prevacid] 30 mg PO DAILY 07/19/17 [History] Multivit-Minerals/Folic Acid [Adult Multivitamin Gummies] 200 mcg PO DAILY 07/19 [History] Nitrofurantoin [Macrodantin] 50 mg PO HS 07/19/17 [History] 3 Allergy/AdvReac Type Severity Reaction Status Date / Time morphine Allergy Severe Difficulty Verified 07/24/17 23:59 Breathing pregabalin [From Lyrica] AdvReac Severe Confusion Verified 07/24/17 23:59 prochlorperazine AdvReac Severe Hallucinati Verified 07/24/17 23:59 [From Compazine] ons Cyclobenzaprine AdvReac Intermediate INCREASED Verified 07/24/17 23:59 [From Flexeril] HEARTRATE methocarbamol [From Robaxin] AdvReac Intermediate MIGRAINES Verified 07/24/17 23 :59 fentanyl AdvReac Vomiting Verified 07/24/17 23:59 metoclopramide [From Reglan] AdvReac See Verified 07/24/17 23:59 Comments pioglitazone [From Actos] AdvReac See Verified 07/24/17 23:59 Comments tape Allergy Rash Uncoded 06/19/17 15:53 steroids AdvReac Hypertensio Uncoded 06/19/17 15:53 n Review of Systems - Constitutional no chills, no fever(s) - EENT Nose, mouth and throat: no dizziness - Cardiovascular no chest pain - Respiratory no dyspnea - Gastrointestinal change in bowel habits, no nausea, no vomiting - Genitourinary Genitourinary: difficulty urinating, no flank pain, no hematuria - Musculoskeletal no back pain - Integumentary no erythema, no rash - Neurological no weakness - Psychiatric no suicidal ideation - Hematologic/Lymphatic no easy bleeding - Allergic/Immunologic no wheezing Exam Initial Vital Signs Temp Pulse Resp BP Pulse Ox 98 F 102 18 118/72 99 07/24/17 23:54 07/24/17 23:54 07/24/17 23:54 07/24/17 23:54 07/24/17 23:54 - General physical appearance Present: well developed, well nourished, no distress - Eyes Absent: icteric - ENT Present: normal nares - Neck Present: trachea midline - Respiratory Present: normal respiratory effort - Cardiovascular Cardiovascular exam IM: RRR - Abdomen Abdomen: Present: soft - Genitourinary Present: other (urine is clear, catheter in place.) Urology Results - Labs 07/25/17 02:05 07/25/17 02:05 Abnormal lab results WBC 12.1 K/mcL (4.3-11.1) H D 07/25/17 02:05 MCHC 30.4 g/dL (31.6-35.5) L 07/25/17 02:05 RDW 15.1 % (11.5-14.5) H 07/25/17 02:05 MPV 8.9 fL (9.4-12.4) L 07/25/17 02:05 Potassium 2.8 mEq/L (3.5-4.5) L 07/25/17 02:05 Glucose 148 mg/dL (70-99) H 07/25/17 02:05 Calcium 8.5 mg/dL (8.6-10.8) L 07/25/17 02:05 Magnesium 1.5 mg/dL (1.6-2.6) L 07/25/17 02:05 Alkaline Phosphatase 148 Units/L (38-126) H 07/25/17 02:05 Albumin 2.6 g/dL (3.5-5.0) L 07/25/17 02:05 Globulin 3.8 g/dL (2.4-3.5) H 07/25/17 02:05 Albumin/Globulin Ratio 0.7 (1.1-2.2) L 07/25/17 02:05 Urine Bilirubin Small (Negative) H 07/25/17 00:55 Ur Leukocyte Esterase Trace (Negative) H 07/25/17 00:55 Urine Microscopic WBC 3-5 per hpf (0-3) H 07/25/17 00:55 Ur Squamous Epith Cells Moderate per lpf (None-Few) H 07/25/17 00:55 Ur Culture Indicated? YES (NO) A 07/25/17 00:55 All other labs normal. - Imaging CT scan - abdomen: report reviewed, image reviewed CT scan - pelvis: report reviewed, image reviewed Consult Discharge Plan - Plan Referrals: NONE,PCP [Primary Care Provider] -
--- NOTE | 2017-07-25 13:20 | Electrocardiograph Report ---
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
[2017-07-25] MEDS: tiZANidine 4 MG TABLET PO PRN ×2 (15:21→22:09)
[2017-07-25] MEDS: Triamcinolone Acet 0.1% CRM 15 GM TUBE TP SCH ×2 (15:22→21:36)
[2017-07-25] MEDS: *HR* Acetaminophen w/Cod 300-30 mg 1 TAB TABLET PO PRN (22:21)
[2017-07-26 05:53] LABS: Basophils % 0.4 %; Eosinophils # 0.3 K/mcL (0.0-0.6); Eosinophils % 4.2 %; Hematocrit 28.9 % (35.3-44.9); Immature Granulocytes % 0.4 % (0-4); Lymphocytes # 2.2 K/mcL (0.6-4.6); Lymphocytes % 29.1 %; Mean Corpuscular HGB Conc 30.8 g/dL (31.6-35.5); Mean Corpuscular Hemoglobin 29.2 pg (28.0-33.3); Mean Corpuscular Volume 94.8 fL (83.0-100.0); Mean Platelet Volume 8.8 fL (9.4-12.4); Monocytes # 0.4 K/mcL (0.0-1.3); Monocytes % 5.1 %; Neutrophils # 4.5 K/mcL (1.6-8.9); Platelet Count 199 K/mcL (140-400); Red Blood Count 3.05 M/mcL (3.82-4.97); Red Cell Distribution Width 15.5 % (11.5-14.5); Segmented Neutrophils % 60.8 %
[2017-07-26 05:55] LABS: Hemoglobin 8.9 g/dL (11.5-15.4)
[2017-07-26 06:01] LABS: BUN/Creatinine Ratio 15 (6-26); Blood Urea Nitrogen 12 mg/dL (7-20); Calcium 7.5 mg/dL (8.6-10.8); Carbon Dioxide 32 mEq/L (19-29); Chloride 103 mEq/L (98-109); Glucose 141 mg/dL (70-99); Magnesium 1.8 mg/dL (1.6-2.6); Osmolality,Calculated 288 (280-300); Sodium 138 mEq/L (136-145); eGFR For African Americans > 60 (> 60); eGFR For Non-African Americans > 60 (> 60)
[2017-07-26 06:02] LABS: Potassium 4.4 mEq/L (3.5-4.5)
[2017-07-26] MEDS: *HR* SitaGLIPtin 100 MG TABLET PO SCH (08:03)
[2017-07-26] MEDS: cloNIDine HCl 0.1 MG TABLET PO SCH ×3 (08:04→20:24)
[2017-07-26] MEDS: Furosemide 40 MG/4 ML VIAL IVP SCH (08:04)
[2017-07-26] MEDS: Gabapentin 300 MG CAPSULE PO SCH ×3 (08:04→20:24)
[2017-07-26] MEDS: Aspirin Enteric Coated 81 MG Tablet PO SCH (08:05)
[2017-07-26] MEDS: Ondansetron ODT 4 MG TAB.RAPDIS PO PRN ×2 (08:21→23:30)
[2017-07-26] MEDS: Triamcinolone Acet 0.1% CRM 15 GM TUBE TP SCH ×2 (12:16→20:25)
[2017-07-26] MEDS: tiZANidine 4 MG TABLET PO PRN ×2 (12:21→23:30)
[2017-07-26] MEDS: *HR* Acetaminophen w/Cod 300-30 mg 1 TAB TABLET PO PRN ×2 (12:21→23:30)
--- NOTE | 2017-07-26 16:17 | Urology Progress Note ---
Date of Encounter: 07/26/17 Time of Encounter: 16:16 - Assessment and Plan (1) Urinary retention with incomplete bladder emptying Current Visit: Yes Status: Acute Assessment and plan: Urinary retention associated with constipation. 1. Okay to remove catheter prior to discharge. If patient unable to void, can consider replacement of the Bella or she can do intermittent catheterization. Would consider removal of catheter once diuresis has finished. Progress Note Narrative: She moved her bowels today. Urine has been clear. Objective Initial Vital Signs Temp Pulse Resp BP Pulse Ox 98 F 102 18 118/72 99 07/24/17 23:54 07/24/17 23:54 07/24/17 23:54 07/24/17 23:54 07/24/17 23:54 - General physical appearance Present: well developed, well nourished, no distress - Respiratory Present: normal respiratory effort - Genitourinary Urine Appearance: Present: Clear - Labs 07/26/17 05:40 07/26/17 05:40 Diabetes panel 07/26/17 Range/Units 05:40 Sodium 138 (136-145) mEq/L Potassium 4.4 D (3.5-4.5) mEq/L Chloride 103 (98-109) mEq/L Carbon Dioxide 32 H (19-29) mEq/L BUN 12 (7-20) mg/dL Creatinine 0.80 (0.57-1.11) mg/dL Glucose 141 H (70-99) mg/dL Calcium 7.5 L (8.6-10.8) mg/dL Calcium panel 07/26/17 Range/Units 05:40 Calcium 7.5 L (8.6-10.8) mg/dL Pituitary panel 07/26/17 Range/Units 05:40 Sodium 138 (136-145) mEq/L Potassium 4.4 D (3.5-4.5) mEq/L Chloride 103 (98-109) mEq/L Carbon Dioxide 32 H (19-29) mEq/L BUN 12 (7-20) mg/dL Creatinine 0.80 (0.57-1.11) mg/dL Glucose 141 H (70-99) mg/dL Calcium 7.5 L (8.6-10.8) mg/dL Adrenal panel 07/26/17 Range/Units 05:40 Sodium 138 (136-145) mEq/L Potassium 4.4 D (3.5-4.5) mEq/L Chloride 103 (98-109) mEq/L Carbon Dioxide 32 H (19-29) mEq/L BUN 12 (7-20) mg/dL Creatinine 0.80 (0.57-1.11) mg/dL Glucose 141 H (70-99) mg/dL Calcium 7.5 L (8.6-10.8) mg/dL Consult Discharge Plan - Plan Referrals: NONE,PCP [Primary Care Provider] -
--- NOTE | 2017-07-26 18:24 | Internal Med Progress Note ---
Date of Encounter: 07/26/17 Time of Encounter: 14:40 - Assessment and plan (1) Hepatic steatosis Current Visit: Yes Status: Acute Assessment and plan: Per pt history. Continue to monitor and follow up with PCP for continued monitoring and treatment. We discussed lifestyle changes, including diet and exercise. (2) History of gastric bypass Current Visit: Yes Status: Acute Assessment and plan: Per pt history/ (3) Hypertension Current Visit: Yes Status: Chronic Assessment and plan: Well controlled. Continue home medications. Qualifiers: Hypertension type: essential hypertension Qualified Code(s): I10 - Essential (primary) hypertension (4) Urinary retention with incomplete bladder emptying Current Visit: Yes Status: Acute (5) Fluid overload Current Visit: Yes Status: Acute Assessment and plan: Pt states that she was recently admitted, last week, for dehydration, tachycardia and was given several liters of fluid, which now she is retaining. She reports "huge" legs, that on inspection are back to her baseline. Pt has perhaps +1 non-pitting edema to BLE. She also reports abdominal distension, abd is soft and nonptender, bs present, no fluid wave noted. Labs appear to be WNL and lungs are clear. Will continue to monitor labs and pt condition. Qualifiers: Hypervolemia type: other Qualified Code(s): E87.79 - Other fluid overload (6) Spongiotic psoriasiform dermatitis Current Visit: Yes Status: Acute Assessment and plan: Per dermatology. Continue Triamcinolone cream, pt reports relief and decrease in redness. (7) DVT prophylaxis Current Visit: No Status: Acute Assessment and plan: Early ambulation, up to chair and NEVAEH hose. - Time Spent With Patient less than 15 minutes - Subjective Interval history: Patient was seen and assessed at 1440, pelvis or appetite. Patient is alert and oriented, she reports that she was recently admitted for fluid retention and tachycardia, she was discharged 5 days ago. She returned 2 nights ago for readmission for same thing. She denies any chest pain, nausea, vomiting, diaphoresis, abdominal pain, any urinary symptoms, back pain. On physical exam she admits that her extremities are significantly better she has maybe +1 nonpitting edema to bilateral lower extremities. Patient does appear to be pale and her hemoglobin is low at 8.9. She says that she already follows with hematology per hospital for iron deficiency anemia. - Constitutional Vitals: Temp Pulse Resp BP Pulse Ox 99.0 F 101 18 103/68 95 07/26/17 15:48 07/26/17 15:48 07/26/17 15:48 07/26/17 15:48 07/26/17 15:48 General appearance: Present: cooperative, A&O X 3, pleasant, no acute distress, answers questions appropriately - Head Head exam: Present: atraumatic, normal inspection, normocephalic - Eye Eye exam: Present: normal appearance, conjuntiva pink, sclera anicteric - Neck Neck exam general surgery: Present: supple, trachea midline. Absent: lymphadenopathy, tenderness - Respiratory Respiratory exam: Present: CTAB. Absent: accessory muscle use, chest wall tenderness, rales, respiratory distress, rhonchi, wheezes - Cardiovascular Cardiovascular exam: Present: RRR, +S1, +S2. Absent: diastolic murmur, gallop, rubs, systolic murmur - GI/Abdominal GI/Abdominal exam: Present: distended, normal bowel sounds, soft, no peritoneal signs. Absent: hepatomegaly, tenderness - Extremities Exam Extremities exam: Present: normal capillary refill, normal inspection, pedal edema, warm, radial pulses palpable and symmetrical. Absent: calf tenderness, cyanotic - Neurological Exam Neurological exam: Present: alert, oriented X3, no focal deficits. Absent: facial droop, speech deficit - Skin Skin exam: Present: dry, intact, pallor, warm. Absent: rash Internal Medicine: Result - Labs CBC & Chem 7: 07/26/17 05:40 07/26/17 05:40 Labs: Short CBC 07/26/17 Range/Units 05:40 WBC 7.5 (4.3-11.1) K/mcL Hgb 8.9 L D (11.5-15.4) g/dL Hct 28.9 L (35.3-44.9) % Plt Count 199 (140-400) K/mcL Neutrophils # 4.5 (1.6-8.9) K/mcL BMP 07/26/17 05:40 Sodium 138 Potassium 4.4 D Chloride 103 Carbon Dioxide 32 H BUN 12 Creatinine 0.80 Glucose 141 H Calcium 7.5 L Consult Discharge Plan - Plan Referrals: NONE,PCP [Primary Care Provider] -
[2017-07-27 06:45] LABS: Basophils % 0.4 %; Eosinophils # 0.3 K/mcL (0.0-0.6); Eosinophils % 3.8 %; Hematocrit 30.3 % (35.3-44.9); Hemoglobin 9.2 g/dL (11.5-15.4); Immature Granulocytes % 0.4 % (0-4); Lymphocytes # 2.1 K/mcL (0.6-4.6); Lymphocytes % 31.3 %; Mean Corpuscular HGB Conc 30.4 g/dL (31.6-35.5); Mean Corpuscular Hemoglobin 28.8 pg (28.0-33.3); Mean Corpuscular Volume 94.7 fL (83.0-100.0); Mean Platelet Volume 9.1 fL (9.4-12.4); Monocytes # 0.3 K/mcL (0.0-1.3); Monocytes % 4.9 %; Platelet Count 209 K/mcL (140-400); Segmented Neutrophils % 59.2 %
[2017-07-27 06:56] LABS: BUN/Creatinine Ratio 16 (6-26); Blood Urea Nitrogen 12 mg/dL (7-20); Calcium 7.5 mg/dL (8.6-10.8); Carbon Dioxide 30 mEq/L (19-29); Chloride 103 mEq/L (98-109); Glucose 158 mg/dL (70-99); Magnesium 1.4 mg/dL (1.6-2.6); Osmolality,Calculated 287 (280-300); Potassium 3.9 mEq/L (3.5-4.5); Sodium 137 mEq/L (136-145); eGFR For African Americans > 60 (> 60); eGFR For Non-African Americans > 60 (> 60)
[2017-07-27] MEDS: cloNIDine HCl 0.1 MG TABLET PO SCH ×2 (09:29→12:59)
[2017-07-27] MEDS: Furosemide 40 MG/4 ML VIAL IVP SCH (09:29)
[2017-07-27] MEDS: Aspirin Enteric Coated 81 MG Tablet PO SCH (09:46)
[2017-07-27] MEDS: *HR* Acetaminophen w/Cod 300-30 mg 1 TAB TABLET PO PRN (09:46)
[2017-07-27] MEDS: Gabapentin 300 MG CAPSULE PO SCH ×2 (09:47→14:52)
[2017-07-27] MEDS: Cyanocobalamin (B-12) 1,000 MCG TABLET PO SCH (09:47)
[2017-07-27] MEDS: *HR* SitaGLIPtin 100 MG TABLET PO SCH (09:47)
[2017-07-27] MEDS: Triamcinolone Acet 0.1% CRM 15 GM TUBE TP SCH (09:52)
--- NOTE | 2017-07-27 15:33 | Discharge Summary ---
Date of Encounter: 07/27/17 Time of Encounter: 15:00 - Discharge Diagnosis (1) Hepatic steatosis Priority: Secondary Status: Chronic Comments: Per pt history and CT abd/pelvis. Continue lifestyle changes. (2) History of gastric bypass Priority: Secondary Status: Chronic Comments: Per pt history. (3) Hypertension Priority: Secondary Status: Chronic Comments: Pt has been hypotensive today. Qualifiers: Hypertension type: essential hypertension Qualified Code(s): I10 - Essential (primary) hypertension (4) Urinary retention with incomplete bladder emptying Priority: Secondary Status: Acute Comments: Pt with cosme catheter currently, will be d/cd prior to discharge. Pt had several BMs and states that she feels better. (5) Fluid overload Priority: Secondary Status: Acute Comments: Pt with +1 non-pitting edema to BLE. Pt has returned to her baseline. Will continue Lasix 20mg po daily at home initially, if she does not see an improvement, will take 20mg po bid. pt has 40mg tablets at home. Lungs are clear. Qualifiers: Hypervolemia type: other Qualified Code(s): E87.79 - Other fluid overload (6) Spongiotic psoriasiform dermatitis Priority: Secondary Status: Acute Comments: Continue Rx ointments. (7) DVT prophylaxis Priority: Secondary Status: Acute - Discharge Medications Prescriptions: Magnesium Oxide [Mag-Ox] 400 mg PO DAILY #30 tablet Potassium Chloride 20 meq PO DAILY #30 tab.er.prt Triamcinolone Acet 0.1% CRM [Kenalog] 1 appl TP BID #1 tube Home Medications: Aspirin Enteric Coated [Aspirin EC] 81 mg PO DAILY 05/30/15 [History] Meclizine [Antivert] 12.5 - 25 mg PO BID PRN 05/30/15 [History] Ondansetron [Zofran] 4 mg PO TID PRN 05/30/15 [History] cloNIDine HCl [CloNIDine HCl] 0.1 mg PO TID 08/23/15 [History] Ergocalciferol (VITAMIN D2) [Vitamin D2 (50,000 UNIT)] 50,000 unit PO 2XW [History] Sitagliptin Phosphate [Januvia] 50 mg PO DAILY 11/20/15 [History] Tizanidine HCl [Zanaflex] 4 - 8 mg PO QID PRN 11/20/15 [History] Promethazine [Phenergan] 25 mg PO Q6HR PRN #10 tablet 11/21/15 [Rx] Furosemide [Lasix] 40 mg PO TID PRN 07/04/16 [History] Gabapentin [Neurontin] 600 mg PO TID 07/04/16 [History] hydrOXYzine HCl [Hydroxyzine HCl] 25 mg PO TID PRN 07/04/16 [History] Cyanocobalamin (Vitamin B-12) [Vitamin B-12] 1,000 mcg SL Q48H 07/05/16 [History ] Chlorthalidone 25 mg PO DAILY 09/19/16 [History] Acetaminophen with Codeine [Acetaminophen-Cod #4 Tablet] 1 tab PO TID PRN [History] Lansoprazole [Prevacid] 30 mg PO DAILY 07/19/17 [History] Multivit-Minerals/Folic Acid [Adult Multivitamin Gummies] 200 mcg PO DAILY 07/19 [History] Nitrofurantoin [Macrodantin] 50 mg PO HS 07/19/17 [History] Magnesium Oxide [Mag-Ox] 400 mg PO DAILY #30 tablet 07/27/17 [Rx] Polyethylene Glycol 3350 [MiraLAX] 17 gm PO DAILY powd.pack 07/27/17 [Rx] Potassium Chloride 20 meq PO DAILY #30 tab.er.prt 07/27/17 [Rx] Triamcinolone Acet 0.1% CRM [Kenalog] 1 appl TP BID #1 tube 07/27/17 [Rx] Allergies/Adverse Reactions: 3 Allergy/AdvReac Type Severity Reaction Status Date / Time morphine Allergy Severe Difficulty Verified 07/24/17 23:59 Breathing pregabalin [From Lyrica] AdvReac Severe Confusion Verified 07/24/17 23:59 prochlorperazine AdvReac Severe Hallucinati Verified 07/24/17 23:59 [From Compazine] ons Cyclobenzaprine AdvReac Intermediate INCREASED Verified 07/24/17 23:59 [From Flexeril] HEARTRATE methocarbamol [From Robaxin] AdvReac Intermediate MIGRAINES Verified 07/24/17 23 :59 fentanyl AdvReac Vomiting Verified 07/24/17 23:59 metoclopramide [From Reglan] AdvReac See Verified 07/24/17 23:59 Comments pioglitazone [From Actos] AdvReac See Verified 07/24/17 23:59 Comments tape Allergy Rash Uncoded 06/19/17 15:53 steroids AdvReac Hypertensio Uncoded 06/19/17 15:53 n Procedures/tests Complete & Pending: Procedures Performed prior 72 hours Category Date Time Status ECG 12 lead ECG [ECG] Routine Y 07/26/17 18:57 Completed Date of admission: 07/25/17 06:03 Primary care physician: PCP NONE Consults: 07/25/17 08:10 Consult to Urology [CONS] Routine Consulting Provider: Urology [facility]ie Reason for Consult: known to Dr Peralta, urinary retention Call Completed: Yes 07/25/17 09:58 Consult to Dermatology [CONS] Routine Consulting Provider: Dermatology [place] Reason for Consult: rash Call Completed: Yes Discharging clinician: Agueda Osuna Anticipated date of discharge: 07/27/17 - Patient Status Disposition: Home, Self-Care Condition: Good Functional capacity at discharge: independent ambulation Overall status at discharge: patient is back to baseline - Discharge Instructions Instructions: Chest Pain (DC), Acute Abdominal Pain (DC), Chronic Hypertension (DC) Follow Up With: NONE,PCP [Primary Care Provider] - Additional Instructions: Follow up with your PCP in the next 7-10 days for a follow up visit. Return to the ER as needed for any other problems or concerns, of if your symptoms return or worsen. Take your medications as directed. Return to your normal activites as tolerated. Return to your normal diet, make sure to include fresh fruits and vegetables. - Diet and Activity Activity: increase activity as tolerated, resume usual activities as tolerated Diet: diabetic diet, low fat, low cholesterol Hospital course: Ms. Mcdonald is a 47 year old female with past medical history of an STEMI, A. fib, hypothyroidism, digoxin toxicity, and CK D stage III. She presented to the emergency department with a 10-12 pound weight gain, urinary retention, and rash over her abdomen and legs. Patient has prior medical history of gastric bypass surgery and has poor absorption, she was also hypokalemic and hyponatremic on admission. Full catheter was placed in the emergency department had a proximally 600 mL out. Patient was also constipated and colon was full of stool, this may had a impact on her urinary retention. Patient was given stool softener, enemas, laxatives and have bowel movements. Her abdomen is less distended and softer today. She denies any abdominal pain, nausea or vomiting. Patient reports a recent admission for dehydration where she was given multiple liters of fluid, states that she is still retaining fluid and reports a 10-12 pound weight gain. Fluid gain was in her lower abdomen and bilateral lower extremities. She has when necessary Lasix at home but did not take any due to hypokalemia and hypomagnesemia. She has been diuresed here and states that her legs have returned to their normal state. She has +1 nonpitting edema to bilateral lower extremities which is her normal. Potassium has returned to normal, 3.9 today. Magnesium remained slightly decreased today at 1.4. She will be sent home only with Mag-Ox 400 milligrams daily, but she will also be sent home with potassium 10 mEq daily. We discussed diet changes to include more potassium and magnesium-containing foods. Patient reports chronic anemia, states that she sees hematology oncology at [place]. Hemoglobin had stayed steady throughout visit, actually increased slightly today to 9.1. There is no need for transfusion, patient will follow up outpatient. Patient has been slightly hypotensive today. Her blood pressure medications have been held. Patient was given a 250 mL bolus and contingent order for discharge if pt urinates on her own after cosme d/cd, SBP > 100. - Time Spent with Patient Total time spent providing and/or coordinating discharge services: Less than 30 minutes - Constitutional Vitals: Temp Pulse Resp BP Pulse Ox 97.9 F 76 14 86/63 96 07/27/17 10:40 07/27/17 10:40 07/27/17 10:40 07/27/17 13:01 07/27/17 10:40 General appearance: Present: cooperative, A&O X 3, pleasant, no acute distress, answers questions appropriately - Head Head exam: Present: atraumatic, normal inspection, normocephalic - Eye Eye exam: Present: normal appearance, conjuntiva pink, sclera anicteric - Neck Neck exam general surgery: Present: supple, trachea midline. Absent: lymphadenopathy - Respiratory Respiratory exam: Present: CTAB. Absent: accessory muscle use, chest wall tenderness, rales, rhonchi, wheezes - Cardiovascular Cardiovascular exam: Present: RRR, +S1, +S2. Absent: diastolic murmur, gallop, rubs, systolic murmur - GI/Abdominal GI/Abdominal exam: Present: normal bowel sounds, soft, no peritoneal signs. Absent: distended, hepatomegaly, tenderness - Extremities Exam Extremities exam: Present: warm, radial pulses palpable and symmetrical. Absent : calf tenderness, cyanotic, pedal edema - Neurological Exam Neurological exam: Present: alert, oriented X3, no focal deficits. Absent: facial droop, speech deficit - Skin Skin exam: Present: dry, intact, normal color, warm. Absent: rash
[2017-07-27] MEDS ORDERED: 0.9 % Sodium Chloride 250 ML ONE (16:28)
[2017-07-27] MEDS ORDERED: 0.9 % Sodium Chloride 250 ML IVC ONE ×2 (16:41→18:13)
[2017-07-27 18:43] VITALS: BP 108/76
--- NOTE | 2017-07-27 20:16 | Electrocardiograph Report ---
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
[2017-07-28] MEDS ORDERED: Magnesium Oxide 400 MG TABLET PO SCH (09:00)
== END 2017-07-27 19:05 | disposition home or self-care (01) ==
LOC: 3BNU 23:21 → EMEROO 23:21 → 3BNU 07-25 07:24
PROVIDERS: ADMIT Pediatrics; ATTEND Registered Nurse

== ENCOUNTER 2017-08-04 12:58 | Inpatient (IN) ==
[2017-08-04 15:23] LABS: Albumin 2.2 g/dL (3.5-5.0); Albumin/Globulin Ratio 0.6 (1.1-2.2); Bilirubin,Indirect 0.7 mg/dL (0.0-1.2); Globulin 3.5 g/dL (2.4-3.5); Total Protein 5.7 g/dL (6.0-8.3)
[2017-08-04 15:27] LABS: Bilirubin,Direct 0.5 mg/dL (0.0-0.5); Bilirubin,Total 1.2 mg/dL (0.2-1.2)
--- NOTE | 2017-08-04 15:32 | Emergency Department Note ---
START Narrative - START START: I examined this patient and my medical decision-making was reviewed with the DRIVE TESTER/PA/Advanced Practice Nurse/Resident Physician. I agree with the documented findings, disposition and treatment plan as described except to the extent set forth below. The patient does appear weak, she is hypotensive, she does have a history of heart failure and laboratory evaluation is pending. I did review the chest x- ray showing some atelectasis and hyperinflation of lungs no infiltrate or pneumothorax. As results are pending. 1532 I did speak with the hospitalist who accepted the patient for admission. We are concerned about urinary tract infection and sepsis with elevated lactate level. Initial blood pressure 85 systolic and most recent blood pressure at 7: 32 PM is 105 systolic. The patient received 2 g IV Rocephin, potassium replacement for hypokalemia with a potassium level of 2.8 and a IV fluid bolus of 1 L. She is not currently hypotensive and does have a history of heart failure so we will start with a 1 L IV fluid bolus. 2012
--- NOTE | 2017-08-04 16:19 | Emergency Department Note ---
Disposition Clinical Impression: Sepsis due to urinary tract infection, Hypokalemia, Generalized pain, Pedal edema Hypotension Qualifiers: Hypotension type: other hypotension type Qualified Code(s): I95.89 - Other hypotension Disposition: Admitted As Inpatient Condition: Fair Time of Disposition: 21:11 General Adult HPI - General Chief complaint: ED Shortness of Breath/Dyspnea Stated complaint: n/v Time Seen by Provider: 08/04/17 14:12 Source: patient Mode of arrival: private vehicle Limitations: no limitations Nursing Notes Reviewed: Yes Vital Signs Reviewed: Yes - History of Present Illness HPI Narrative: 47-year-old female presents to the ED with general complaint of ongoing fatigue , oligurea, and worsening bilaterally symmetrical leg edema. Symptoms have been ongoing over the last month. Also has intermittent nausea, constipation, and states has recurrent urinary tract infections. History is significant for gos-wayblgo-wjetgnhvz type II diabetes, cardiomyopathy, and systolic heart failure by history. Currently not having any pain, shortness of air, or dysuria /frequency. Patient also states she has had a difficult time with appetite not wanting to eat or drink very much lately. Otherwise no acute symptoms. Pain Scale: 6 - Related Data Home Medications Medication Instructions Recorded Confirmed Aspirin Enteric Coated [Aspirin EC] 81 mg PO DAILY 05/30/15 07/25/17 Meclizine [Antivert] 12.5 - 25 mg PO BID PRN 05/30/15 07/25/17 Ondansetron [Zofran] 4 mg PO TID PRN 05/30/15 07/25/17 cloNIDine HCl [CloNIDine HCl] 0.1 mg PO TID 08/23/15 07/25/17 Ergocalciferol (VITAMIN D2) 50,000 unit PO 2XW 10/24/15 07/25/17 [Vitamin D2 (50,000 UNIT)] Sitagliptin Phosphate [Januvia] 50 mg PO DAILY 11/20/15 07/25/17 Tizanidine HCl [Zanaflex] 4 - 8 mg PO QID PRN 11/20/15 07/25/17 Gabapentin [Neurontin] 600 mg PO TID 07/04/16 07/25/17 hydrOXYzine HCl [Hydroxyzine HCl] 25 mg PO TID PRN 07/04/16 07/25/17 Cyanocobalamin (Vitamin B-12) 1,000 mcg SL Q48H 07/05/16 07/25/17 [Vitamin B-12] Chlorthalidone 25 mg PO DAILY 09/19/16 07/25/17 Acetaminophen with Codeine 1 tab PO TID PRN 02/05/17 07/25/17 [Acetaminophen-Cod #4 Tablet] Multivit-Minerals/Folic Acid 200 mcg PO DAILY 07/19/17 07/25/17 [Adult Multivitamin Gummies] Nitrofurantoin [Macrodantin] 50 mg PO HS 07/19/17 07/25/17 Famotidine [Pepcid] 20 mg PO DAILY 08/04/17 08/04/17 Furosemide [Lasix] 10 mg PO DAILY 08/04/17 08/04/17 Furosemide [Lasix] 10 mg PO QPM PRN 08/04/17 08/04/17 Previous Rx's Medication Instructions Recorded Promethazine [Phenergan] 25 mg PO Q6HR PRN #10 tablet 11/21/15 Magnesium Oxide [Mag-Ox] 400 mg PO DAILY #30 tablet 07/27/17 Polyethylene Glycol 3350 [MiraLAX] 17 gm PO DAILY powd.pack 07/27/17 Potassium Chloride 20 meq PO DAILY #30 tab.er.prt 07/27/17 Triamcinolone Acet 0.1% CRM 1 appl TP BID #1 tube 07/27/17 [Kenalog] Allergies Allergy/AdvReac Type Severity Reaction Status Date / Time morphine Allergy Severe Difficulty Verified 07/24/17 23:59 Breathing pregabalin [From Lyrica] AdvReac Severe Confusion Verified 07/24/17 23:59 prochlorperazine AdvReac Severe Hallucinati Verified 07/24/17 23:59 [From Compazine] ons Cyclobenzaprine AdvReac Intermediate INCREASED Verified 07/24/17 23:59 [From Flexeril] HEARTRATE methocarbamol [From Robaxin] AdvReac Intermediate MIGRAINES Verified 07/24/17 23 :59 fentanyl AdvReac Vomiting Verified 07/24/17 23:59 metoclopramide [From Reglan] AdvReac See Verified 07/24/17 23:59 Comments pioglitazone [From Actos] AdvReac See Verified 07/24/17 23:59 Comments tape Allergy Rash Uncoded 06/19/17 15:53 steroids AdvReac Hypertensio Uncoded 06/19/17 15:53 n Review of Systems: Denies syncope, fevers, sweats, chest pain, palpitations, productive cough, diarrhea, dysuria, hematuria. Past Medical History - Past Medical History Attestation: Yes The following information was validated with the patient. 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 Absent: scleral icterus, conjunctival injection - ENT ENT exam: mucous membranes dry - Chest Chest inspection: Present: symmetric chest wall rise - Respiratory Respiratory exam: Present: normal lung sounds bilaterally. Absent: respiratory distress, wheezes, accessory muscle use - Cardiovascular Cardiovascular exam: Present: regular rate, normal rhythm, normal heart sounds. Absent: systolic murmur, diastolic murmur, +S3, +S4 - Abdominal Exam Abdominal exam: Present: other (Patient's abdomen soft nontender to all 4 quadrants; no guarding, rebound, rigidity, or distention.) - Extremities Exam Extremities exam: Present: pedal edema (2 to 3+ pitting edema equal bilaterally without any erythema or stasis discoloration) - Expanded Lower Extremity Exam Neurovascular/Tendon exam: Present: normal capillary refill. Absent: pulse deficit, motor deficit, sensory deficit, extremity cold to touch, pallor - Neurological Exam Neurological exam: Present: alert, oriented X3 - Psychiatric Psychiatric exam: Present: anxious - Skin Skin exam: Present: warm, dry, normal color, other (Known psoriatic lesions in various regions). Absent: cyanosis, diaphoresis, pallor, mottled Course - Reevaluation(s) Reevaluation #1: Reassessed patient after ongoing difficulty to achieve venous access. Patient' s general condition is subjectively unchanged. CVC placed by Dr. Garza. Time: 20:00 Reevaluation #2: Patient requests pain medication for generalized pain. Discussed admission with patient for concern of UTI with sepsis. Patient agrees to admit. Time: 20:15 Vital Signs Temperature 98.4 F 08/04/17 13:02 Pulse Rate 80 08/04/17 13:02 Respiratory Rate 20 08/04/17 13:02 Blood Pressure 85/61 08/04/17 13:02 O2 Sat by Pulse Oximetry 99 08/04/17 13:02 Temperature 98.4 F 08/04/17 13:02 Pulse Rate 76 08/04/17 16:09 Respiratory Rate 16 08/04/17 16:09 Blood Pressure 100/78 08/04/17 16:09 O2 Sat by Pulse Oximetry 97 08/04/17 16:09 Oxygen Delivery Oxygen Delivery Room Air Medical Decision Making - MDM Narrative Medical decision making narrative: Overall workup significant for UTI as well as markedly elevated lactate. Patient has had mild hypotension as well. Patient is started on 1L NS bolus as well as 2 gram dose of Rocephin. Also note, patient did have potassium of 2.8 which was addressed with single PO dose of K-lyte; this likely need to be followed as well. Patient admitted to hospital a service for ongoing monitoring in IV antibiotics for sepsis due to UTI. Dr. Russell discussed patient with hospitalist who agrees to admit patient to medical floor. - Lab Data Lab results reviewed: Yes I reviewed the patient's lab results. Lab results narrative: Laboratory Last Values WBC 10.4 K/mcL (4.3-11.1) 08/04/17 19:28 RBC 3.23 M/mcL (3.82-4.97) L 08/04/17 19:28 Hgb 9.5 g/dL (11.5-15.4) L 08/04/17 19:28 Hct 29.6 % (35.3-44.9) L 08/04/17 19:28 MCV 91.6 fL (83.0-100.0) 08/04/17 19:28 MCH 29.4 pg (28.0-33.3) 08/04/17 19:28 MCHC 32.1 g/dL (31.6-35.5) 08/04/17 19:28 RDW 14.5 % (11.5-14.5) 08/04/17 19:28 Plt Count 257 K/mcL (140-400) 08/04/17 19:28 MPV 9.6 fL (9.4-12.4) 08/04/17 19: Immature Gran % 0.5 % (0-4) 08/04/17 19: Seg Neutrophils % 64.4 % 08/04/17 19: Lymphocytes % 26.1 % 08/04/17 19:28 Monocytes % 6.7 % 08/04/17 19: Eosinophils % 2.0 % 08/04/17 19: Basophils % 0.3 % 08/04/17 19: Neutrophils # 6.7 K/mcL (1.6-8.9) 08/04/17 19: Lymphocytes # 2.7 K/mcL (0.6-4.6) 08/04/17 19: Monocytes # 0.7 K/mcL (0.0-1.3) 08/04/17 19: Eosinophils # 0.2 K/mcL (0.0-0.6) 08/04/17 19: Basophils # 0.0 K/mcL (0.0-0.2) 08/04/17 19: Reactive Lymphocytes Present (Not Present) A 08/04/17 19: Platelet Estimate Normal (Normal) 08/04/17 19: PT 13.0 Seconds (9.4-12.1) H 08/04/17 19: INR 1.2 08/04/17 19: APTT 29.6 Seconds (26.0-36.0) 08/04/17 19:28 Sodium 135 mEq/L (136-145) L 08/04/17 19: Potassium 2.8 mEq/L (3.5-4.5) L 08/04/17 19: Chloride 95 mEq/L (98-109) L 08/04/17 19: Carbon Dioxide 29 mEq/L (19-29) 08/04/17 19: BUN 16 mg/dL (7-20) 08/04/17 19: Creatinine 0.87 mg/dL (0.57-1.11) 08/04/17 19:28 Est GFR ( Amer) > 60 (> 60) 08/04/17 19:28 Est GFR (Non-Af Amer) > 60 (> 60) 08/04/17 19:28 BUN/Creatinine Ratio 18 (6-26) 08/04/17 19:28 Glucose 230 mg/dL (70-99) H 08/04/17 19:28 Calculated Osmolality 288 (280-300) 08/04/17 19:28 Lactic Acid 4.2 mmol/L (0.5-2.2) H* 08/04/17 19:28 Calcium 7.3 mg/dL (8.6-10.8) L 08/04/17 19:28 Total Bilirubin 1.2 mg/dL (0.2-1.2) 08/04/17 14:56 Direct Bilirubin 0.5 mg/dL (0.0-0.5) 08/04/17 14:56 Indirect Bilirubin 0.7 mg/dL (0.0-1.2) 08/04/17 14:56 AST 46 Units/L (5-34) H 08/04/17 14:56 ALT 22 Units/L (0-55) 08/04/17 14:56 Alkaline Phosphatase 140 Units/L (38-126) H 08/04/17 14:56 Troponin I 0.00 ng/mL (0-0.03) 08/04/17 14:56 B-Natriuretic Peptide 51 pg/mL (0-100) 08/04/17 19:28 Serum Total Protein 5.7 g/dL (6.0-8.3) L 08/04/17 14:56 Albumin 2.2 g/dL (3.5-5.0) L 08/04/17 14:56 Globulin 3.5 g/dL (2.4-3.5) 08/04/17 14:56 Albumin/Globulin Ratio 0.6 (1.1-2.2) L 08/04/17 14:56 Urine Color [employer] (Yellow) A 08/04/17 17:37 Urine Clarity Cloudy (Clear) A 08/04/17 17:37 Urine pH 6.0 pH Units (5.0-8.0) 08/04/17 17:37 Ur Specific [place] 1.030 (1.010-1.025) H 08/04/17 17:37 Urine Protein Negative mg/dL (Neg-Trace) 08/04/17 17:37 Urine Glucose (UA) Normal mg/dL (Normal) 08/04/17 17:37 Urine Ketones Trace mg/dL (Negative) H 08/04/17 17:37 Urine Blood Negative (Negative) 08/04/17 17:37 Urine Nitrite Positive (Negative) A 08/04/17 17:37 Urine Bilirubin Small (Negative) H 08/04/17 17:37 Urine Urobilinogen Normal mg/dL (Normal) 08/04/17 17:37 Ur Leukocyte Esterase Moderate (Negative) H 08/04/17 17:37 Urine Microscopic WBC 5-15 per hpf (0-3) H 08/04/17 17:37 Ur Squamous Epith Cells Many per lpf (None-Few) H 08/04/17 17:37 Urine Bacteria Many per hpf (None-Few) H 08/04/17 17:37 Hyaline Casts Few per lpf (None-Few) 08/04/17 17:37 Ur Culture Indicated? YES (NO) A 08/04/17 17:37 Lab Results 08/04/17 08/04/17 Range/Units 14:56 14:56 Total Bilirubin 1.2 (0.2-1.2) mg/dL Direct Bilirubin 0.5 (0.0-0.5) mg/dL Indirect Bilirubin 0.7 (0.0-1.2) mg/dL AST 46 H (5-34) Units/L ALT 22 (0-55) Units/L Alkaline Phosphatase 140 H (38-126) Units/L Troponin I 0.00 (0-0.03) ng/mL Serum Total Protein 5.7 L (6.0-8.3) g/dL Albumin 2.2 L (3.5-5.0) g/dL Globulin 3.5 (2.4-3.5) g/dL Albumin/Globulin Ratio 0.6 L (1.1-2.2) - Radiology Data Radiology results reviewed: Yes I reviewed the patient's radiology results. Chest X-Ray 08/04/17 19:17 IMPRESSION: Central line in satisfactory position. D/ / Stanislav Cohen MD / Stanislav Cohen MD Interpreting Provider: Stanislav Cohen MD - EKG Data EKG #1 EKG attestation: Yes I reviewed and interpreted this EKG. EKG results narrative: 08/04/2017 at 1404: rate 77, VA interval 149, short zoroastrian 100, QTC 438, axis -16, no hyperacute T waves, no ST segment elevations or depressions. No signs of acute ischemia.
[2017-08-04 17:51] LABS: Bilirubin,Urine Small (Negative); Blood,Urine Negative (Negative); Clarity,Urine Cloudy (Clear); Color,Urine Orange (Yellow); Glucose,Urine (UA) Normal (Normal); Ketones,Urine Trace mg/dL (Negative); Leukocyte Esterase,Urine Moderate (Negative); Nitrite,Urine Positive (Negative); Protein,Urine Negative (Neg-Trace); Urobilinogen,Urine Normal (Normal)
[2017-08-04 17:53] LABS: Bacteria,Urine Many per hpf (None-Few); Squamous Epithelial Cell,Urine Many per lpf (None-Few)
[2017-08-04 18:06] LABS: Hyaline Casts,Urine Few per lpf (None-Few)
[2017-08-04 19:36] LABS: Basophils % 0.3 %; Eosinophils # 0.2 K/mcL (0.0-0.6); Hematocrit 29.6 % (35.3-44.9); Hemoglobin 9.5 g/dL (11.5-15.4); Immature Granulocytes % 0.5 % (0-4); Lymphocytes # 2.7 K/mcL (0.6-4.6); Lymphocytes % 26.1 %; Mean Corpuscular HGB Conc 32.1 g/dL (31.6-35.5); Mean Corpuscular Hemoglobin 29.4 pg (28.0-33.3); Mean Corpuscular Volume 91.6 fL (83.0-100.0); Mean Platelet Volume 9.6 fL (9.4-12.4); Monocytes # 0.7 K/mcL (0.0-1.3); Monocytes % 6.7 %; Neutrophils # 6.7 K/mcL (1.6-8.9); Platelet Count 257 K/mcL (140-400); Red Blood Count 3.23 M/mcL (3.82-4.97); Red Cell Distribution Width 14.5 % (11.5-14.5); Segmented Neutrophils % 64.4 %
[2017-08-04 19:40] LABS: INR 1.2
[2017-08-04 19:43] LABS: Activated Partial Thrombo Time 29.6 Seconds (26.0-36.0)
[2017-08-04 19:52] LABS: BUN/Creatinine Ratio 18 (6-26); Blood Urea Nitrogen 16 mg/dL (7-20); Calcium 7.3 mg/dL (8.6-10.8); Carbon Dioxide 29 mEq/L (19-29); Chloride 95 mEq/L (98-109); Glucose 230 mg/dL (70-99); Osmolality,Calculated 288 (280-300); Potassium 2.8 mEq/L (3.5-4.5); Sodium 135 mEq/L (136-145); eGFR For African Americans > 60 (> 60); eGFR For Non-African Americans > 60 (> 60)
[2017-08-04 19:54] LABS: Platelet Estimate Normal (Normal); Reactive Lymphocytes Present (Not Present)
[2017-08-04] MEDS ORDERED: 0.9 % Sodium Chloride 1,000 ML IVC ONE (19:55)
--- NOTE | 2017-08-04 20:00 | Emergency Department Note ---
Disposition Clinical Impression: Nausea and vomiting Qualifiers: Vomiting type: unspecified Vomiting Intractability: unspecified Qualified Code( s): R11.2 - Nausea with vomiting, unspecified Disposition: Still a Patient Condition: Good Referrals: NONE,PCP [Primary Care Provider] - Forms: ED Satisfaction Letter General Adult HPI - General Chief complaint: ED Shortness of Breath/Dyspnea Stated complaint: n/v Time Seen by Provider: 08/04/17 14:12 Source: patient Mode of arrival: private vehicle Limitations: no limitations - History of Present Illness Pain Scale: 6 - Related Data Home Medications Medication Instructions Recorded Confirmed Aspirin Enteric Coated [Aspirin EC] 81 mg PO DAILY 05/30/15 07/25/17 Meclizine [Antivert] 12.5 - 25 mg PO BID PRN 05/30/15 07/25/17 Ondansetron [Zofran] 4 mg PO TID PRN 05/30/15 07/25/17 cloNIDine HCl [CloNIDine HCl] 0.1 mg PO TID 08/23/15 07/25/17 Ergocalciferol (VITAMIN D2) 50,000 unit PO 2XW 10/24/15 07/25/17 [Vitamin D2 (50,000 UNIT)] Sitagliptin Phosphate [Januvia] 50 mg PO DAILY 11/20/15 07/25/17 Tizanidine HCl [Zanaflex] 4 - 8 mg PO QID PRN 11/20/15 07/25/17 Furosemide [Lasix] 40 mg PO TID PRN 07/04/16 07/25/17 Gabapentin [Neurontin] 600 mg PO TID 07/04/16 07/25/17 hydrOXYzine HCl [Hydroxyzine HCl] 25 mg PO TID PRN 07/04/16 07/25/17 Cyanocobalamin (Vitamin B-12) 1,000 mcg SL Q48H 07/05/16 07/25/17 [Vitamin B-12] Chlorthalidone 25 mg PO DAILY 09/19/16 07/25/17 Acetaminophen with Codeine 1 tab PO TID PRN 02/05/17 07/25/17 [Acetaminophen-Cod #4 Tablet] Lansoprazole [Prevacid] 30 mg PO DAILY 07/19/17 07/25/17 Multivit-Minerals/Folic Acid 200 mcg PO DAILY 07/19/17 07/25/17 [Adult Multivitamin Gummies] Nitrofurantoin [Macrodantin] 50 mg PO HS 07/19/17 07/25/17 Previous Rx's Medication Instructions Recorded Promethazine [Phenergan] 25 mg PO Q6HR PRN #10 tablet 11/21/15 Magnesium Oxide [Mag-Ox] 400 mg PO DAILY #30 tablet 07/27/17 Polyethylene Glycol 3350 [MiraLAX] 17 gm PO DAILY powd.pack 07/27/17 Potassium Chloride 20 meq PO DAILY #30 tab.er.prt 07/27/17 Triamcinolone Acet 0.1% CRM 1 appl TP BID #1 tube 07/27/17 [Kenalog] Allergies Allergy/AdvReac Type Severity Reaction Status Date / Time morphine Allergy Severe Difficulty Verified 07/24/17 23:59 Breathing pregabalin [From Lyrica] AdvReac Severe Confusion Verified 07/24/17 23:59 prochlorperazine AdvReac Severe Hallucinati Verified 07/24/17 23:59 [From Compazine] ons Cyclobenzaprine AdvReac Intermediate INCREASED Verified 07/24/17 23:59 [From Flexeril] HEARTRATE methocarbamol [From Robaxin] AdvReac Intermediate MIGRAINES Verified 07/24/17 23 :59 fentanyl AdvReac Vomiting Verified 07/24/17 23:59 metoclopramide [From Reglan] AdvReac See Verified 07/24/17 23:59 Comments pioglitazone [From Actos] AdvReac See Verified 07/24/17 23:59 Comments tape Allergy Rash Uncoded 06/19/17 15:53 steroids AdvReac Hypertensio Uncoded 06/19/17 15:53 n Past Medical History - Past Medical History Medical history: Reports: diabetes, fibromyalgia, GERD, hypertension, osteoporosis, pulmonary embolus, thyroid disease Surgical history: Reports: cholecystectomy, herniorrhaphy, other, bariatric surgery Psychiatric history: Reports: 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 - Social History Smoking Status: Never smoker Smokeless Tobacco Status: No Alcohol use: Reports: none Drug use: Reports: none Physical Exam - General Limitations: no limitations General appearance: alert, anxious Course Vital Signs Temperature 98.4 F 08/04/17 13:02 Pulse Rate 80 08/04/17 13:02 Respiratory Rate 20 08/04/17 13:02 Blood Pressure 85/61 08/04/17 13:02 O2 Sat by Pulse Oximetry 99 08/04/17 13:02 Temperature 98.4 F 08/04/17 13:02 Pulse Rate 81 08/04/17 19:32 Respiratory Rate 16 08/04/17 19:32 Blood Pressure 105/73 08/04/17 19:32 O2 Sat by Pulse Oximetry 100 08/04/17 19:32 Oxygen Delivery Oxygen Delivery Room Air Procedures - Central Line Placement Left IJ Central Line Inserted*: Yes Central Line Insertion: elective Consent Obtained: written consent Procedural Pause: verify patient name and date of , timeout performed per policy, assemble equipment and verify supplies, perform hand hygiene Patient Placed on Monitor/Pulse Ox: Yes During the Procedure: clinician is wearing sterile gloves, cap, mask,& gown during insertion, sterile field and sterile technique are maintained, patient's face is covered with drape or mask and wearing a cap, everyone in room is wearing a mask Central Line Prep: Chlorhexidine scrub Prep the Procedure Site: apply chloraprep to the skin using a back and forth scrubbing motion, apply chloraprep for 30 seconds (upper body), 1-2 min ( femoral sites), allow prep to dry, drape the patient with a full body drape Local Anesthetic: lidocaine 1% Amount of anesthesia used (mL): 5 Ultrasound Used for Placement: Yes Central Line Lumen Inserted: triple Post Procedure: sutured in place, good blood return, all ports aspirated, flushed, capped, sterile dressing applied, guide wire removed and visualized Post Procedure X-Ray: tip of catheter in good position, no pneumothorax seen Patient Tolerated Procedure: well Complications: none Name of Clinician Inserting Central Line: Anup Garza D.O. Additional Comments: CVC placed under supervision of attending physician Dr. Lucio who was present and available for all critical aspects of the procedure. Medical Decision Making - Lab Data Result diagrams: 08/04/17 19:28 08/04/17 19:28 Lab Results 08/04/17 08/04/17 08/04/17 Range/Units 14:56 14:56 17:37 WBC (4.3-11.1) K/mcL RBC (3.82-4.97) M/mcL Hgb (11.5-15.4) g/dL Hct (35.3-44.9) % MCV (83.0-100.0) fL MCH (28.0-33.3) pg MCHC (31.6-35.5) g/dL RDW (11.5-14.5) % Plt Count (140-400) K/mcL MPV (9.4-12.4) fL Immature Gran % (0-4) % Seg Neutrophils % % Lymphocytes % % Monocytes % % Eosinophils % % Basophils % % Neutrophils # (1.6-8.9) K/mcL Lymphocytes # (0.6-4.6) K/mcL Monocytes # (0.0-1.3) K/mcL Eosinophils # (0.0-0.6) K/mcL Basophils # (0.0-0.2) K/mcL Reactive Lymphocytes (Not Present) Platelet Estimate (Normal) PT (9.4-12.1) Seconds INR APTT (26.0-36.0) Seconds Sodium (136-145) mEq/L Potassium (3.5-4.5) mEq/L Chloride (98-109) mEq/L Carbon Dioxide (19-29) mEq/L BUN (7-20) mg/dL Creatinine (0.57-1.11) mg/dL Est GFR ( Amer) (> 60) Est GFR (Non-Af Amer) (> 60) BUN/Creatinine Ratio (6-26) Glucose (70-99) mg/dL Calculated Osmolality (280-300) Lactic Acid (0.5-2.2) mmol/L Calcium (8.6-10.8) mg/dL Total Bilirubin 1.2 (0.2-1.2) mg/dL Direct Bilirubin 0.5 (0.0-0.5) mg/dL Indirect Bilirubin 0.7 (0.0-1.2) mg/dL AST 46 H (5-34) Units/L ALT 22 (0-55) Units/L Alkaline Phosphatase 140 H (38-126) Units/L Troponin I 0.00 (0-0.03) ng/mL Serum Total Protein 5.7 L (6.0-8.3) g/dL Albumin 2.2 L (3.5-5.0) g/dL Globulin 3.5 (2.4-3.5) g/dL Albumin/Globulin Ratio 0.6 L (1.1-2.2) Urine Color [place] A (Yellow) Urine Clarity Cloudy A (Clear) Urine pH 6.0 (5.0-8.0) pH Units Ur Specific [place] 1.030 H (1.010-1.025) Urine Protein Negative (Neg-Trace) mg/dL Urine Glucose (UA) Normal (Normal) mg/dL Urine Ketones Trace H (Negative) mg/dL Urine Blood Negative (Negative) Urine Nitrite Positive A (Negative) Urine Bilirubin Small H (Negative) Urine Urobilinogen Normal (Normal) mg/dL Ur Leukocyte Esterase Moderate H (Negative) Urine Microscopic WBC 5-15 H (0-3) per hpf Ur Squamous Epith Cells Many H (None-Few) per lpf Urine Bacteria Many H (None-Few) per hpf Hyaline Casts Few (None-Few) per lpf Ur Culture Indicated? YES A (NO) 08/04/17 08/04/17 08/04/17 Range/Units 19:28 19:28 19:28 WBC 10.4 (4.3-11.1) K/mcL RBC 3.23 L (3.82-4.97) M/mcL Hgb 9.5 L (11.5-15.4) g/dL Hct 29.6 L (35.3-44.9) % MCV 91.6 (83.0-100.0) fL MCH 29.4 (28.0-33.3) pg MCHC 32.1 (31.6-35.5) g/dL RDW 14.5 (11.5-14.5) % Plt Count 257 (140-400) K/mcL MPV 9.6 (9.4-12.4) fL Immature Gran % 0.5 (0-4) % Seg Neutrophils % 64.4 % Lymphocytes % 26.1 % Monocytes % 6.7 % Eosinophils % 2.0 % Basophils % 0.3 % Neutrophils # 6.7 (1.6-8.9) K/mcL Lymphocytes # 2.7 (0.6-4.6) K/mcL Monocytes # 0.7 (0.0-1.3) K/mcL Eosinophils # 0.2 (0.0-0.6) K/mcL Basophils # 0.0 (0.0-0.2) K/mcL Reactive Lymphocytes Present A (Not Present) Platelet Estimate Normal (Normal) PT 13.0 H (9.4-12.1) Seconds INR 1.2 APTT 29.6 (26.0-36.0) Seconds Sodium (136-145) mEq/L Potassium (3.5-4.5) mEq/L Chloride (98-109) mEq/L Carbon Dioxide (19-29) mEq/L BUN (7-20) mg/dL Creatinine (0.57-1.11) mg/dL Est GFR ( Amer) (> 60) Est GFR (Non-Af Amer) (> 60) BUN/Creatinine Ratio (6-26) Glucose (70-99) mg/dL Calculated Osmolality (280-300) Lactic Acid 4.2 H* (0.5-2.2) mmol/L Calcium (8.6-10.8) mg/dL Total Bilirubin (0.2-1.2) mg/dL Direct Bilirubin (0.0-0.5) mg/dL Indirect Bilirubin (0.0-1.2) mg/dL AST (5-34) Units/L ALT (0-55) Units/L Alkaline Phosphatase (38-126) Units/L Troponin I (0-0.03) ng/mL Serum Total Protein (6.0-8.3) g/dL Albumin (3.5-5.0) g/dL Globulin (2.4-3.5) g/dL Albumin/Globulin Ratio (1.1-2.2) Urine Color (Yellow) Urine Clarity (Clear) Urine pH (5.0-8.0) pH Units Ur Specific [place] (1.010-1.025) Urine Protein (Neg-Trace) mg/dL Urine Glucose (UA) (Normal) mg/dL Urine Ketones (Negative) mg/dL Urine Blood (Negative) Urine Nitrite (Negative) Urine Bilirubin (Negative) Urine Urobilinogen (Normal) mg/dL Ur Leukocyte Esterase (Negative) Urine Microscopic WBC (0-3) per hpf Ur Squamous Epith Cells (None-Few) per lpf Urine Bacteria (None-Few) per hpf Hyaline Casts (None-Few) per lpf Ur Culture Indicated? (NO) 08/04/17 Range/Units 19:28 WBC (4.3-11.1) K/mcL RBC (3.82-4.97) M/mcL Hgb (11.5-15.4) g/dL Hct (35.3-44.9) % MCV (83.0-100.0) fL MCH (28.0-33.3) pg MCHC (31.6-35.5) g/dL RDW (11.5-14.5) % Plt Count (140-400) K/mcL MPV (9.4-12.4) fL Immature Gran % (0-4) % Seg Neutrophils % % Lymphocytes % % Monocytes % % Eosinophils % % Basophils % % Neutrophils # (1.6-8.9) K/mcL Lymphocytes # (0.6-4.6) K/mcL Monocytes # (0.0-1.3) K/mcL Eosinophils # (0.0-0.6) K/mcL Basophils # (0.0-0.2) K/mcL Reactive Lymphocytes (Not Present) Platelet Estimate (Normal) PT (9.4-12.1) Seconds INR APTT (26.0-36.0) Seconds Sodium 135 L (136-145) mEq/L Potassium 2.8 L (3.5-4.5) mEq/L Chloride 95 L (98-109) mEq/L Carbon Dioxide 29 (19-29) mEq/L BUN 16 (7-20) mg/dL Creatinine 0.87 (0.57-1.11) mg/dL Est GFR ( Amer) > 60 (> 60) Est GFR (Non-Af Amer) > 60 (> 60) BUN/Creatinine Ratio 18 (6-26) Glucose 230 H (70-99) mg/dL Calculated Osmolality 288 (280-300) Lactic Acid (0.5-2.2) mmol/L Calcium 7.3 L (8.6-10.8) mg/dL Total Bilirubin (0.2-1.2) mg/dL Direct Bilirubin (0.0-0.5) mg/dL Indirect Bilirubin (0.0-1.2) mg/dL AST (5-34) Units/L ALT (0-55) Units/L Alkaline Phosphatase (38-126) Units/L Troponin I (0-0.03) ng/mL Serum Total Protein (6.0-8.3) g/dL Albumin (3.5-5.0) g/dL Globulin (2.4-3.5) g/dL Albumin/Globulin Ratio (1.1-2.2) Urine Color (Yellow) Urine Clarity (Clear) Urine pH (5.0-8.0) pH Units Ur Specific [place] (1.010-1.025) Urine Protein (Neg-Trace) mg/dL Urine Glucose (UA) (Normal) mg/dL Urine Ketones (Negative) mg/dL Urine Blood (Negative) Urine Nitrite (Negative) Urine Bilirubin (Negative) Urine Urobilinogen (Normal) mg/dL Ur Leukocyte Esterase (Negative) Urine Microscopic WBC (0-3) per hpf Ur Squamous Epith Cells (None-Few) per lpf Urine Bacteria (None-Few) per hpf Hyaline Casts (None-Few) per lpf Ur Culture Indicated? (NO)
[2017-08-04] MEDS ORDERED: Potassium Effervescent 25 MEQ TABLET.EFF PO ONE (20:25)
[2017-08-04] MEDS ORDERED: Ondansetron 4 MG/2 ML VIAL IVP ONE (20:29)
[2017-08-04] MEDS ORDERED: *HR* HYDROmorphone (PF) 1 MG/ML SYRINGE IVP ONE (20:30)
--- NOTE | 2017-08-04 21:37 | Internal Med History&Physical ---
Date of Encounter: 08/04/17 Time of Encounter: 21:36 Assessment and Plan (1) Sepsis Current visit: Yes Status: Acute Patient met 2 SIRS criteria HR 99 and Lactic acid decreased from 4.2 to 3.7 Patient was hypotensive and left IJ CVC was placed in ED CVP 8 Hold diuretics due to hypotension Continue gentle hydration given hypotension and CKD stage 3 Continue Rocephin 1g IV daily Blood and urine cultures pending Qualifiers: Sepsis type: sepsis due to unspecified organism Qualified Code(s): A41.9 - Sepsis, unspecified organism (2) UTI (urinary tract infection) Current visit: Yes Status: Acute Recurrent UTI, h/o Klebsiella and E. 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 Over the last few months the rash in her groin has spread to her legs, back, right chest, hands bilaterally. She has tried over the counter Cortisone, Diflucan, and Triamcionlone with little relief. Patient reports rapidly worsening rash in the past 1 week. 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 Normal left ventricular diastolic function. No significant valvular dysfunction. Patient reports 25lbs weight gain in 2 weeks BNP 51 1+ edema bilateral legs Hold diuretics due to hypotension Continue gentle hydration given hypotension Qualifiers: Cardiomyopathy type: stress-induced Qualified Code(s): I51.81 - Takotsubo syndrome (6) Hypertension Current visit: No Status: Acute Hold antihypertensive meds due to hypotension Qualifiers: Hypertension type: essential hypertension Qualified Code(s): I10 - Essential (primary) hypertension (7) Fibromyalgia Current visit: No Status: Chronic Continue to monitor (8) Hypothyroidism Current visit: Yes Status: Chronic TSH pending Qualifiers: Hypothyroidism type: unspecified Qualified Code(s): E03.9 - Hypothyroidism , unspecified (9) Hypokalemia Current visit: Yes Status: Acute Supplement K Continue to monitor (10) Hypomagnesemia Current visit: No Status: Acute Supplement Mag Continue to monitor (11) Obesity (BMI 30-39.9) Current visit: Yes Status: Chronic S/p gastric bypass surgery Discussed diet modification and exercise (12) DVT prophylaxis Current visit: Yes Status: Acute Heparin subq TID Internal Medicine - H&P: HPI Chief complaint: Rash Admitted From: Home History of present illness: Ms. 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 Skin biopsy from 2013 revealed . Over the last few months the rash in her groin has spread to her legs, back, right chest, hands bilaterally. She has tried over the counter Cortisone, Diflucan, and Triamcionlone with little relief. Patient reports rapidly worsening rash in the past 1 week. Of note, pateint has a h/o Klebsiella and E. coli UTIs in the past and has been taking Macrobid daily since 02/24/17. In the ED, patient met 2 SIRS criteria HR 99 and Lactic acid decreased from 4.2 to 3.7. Patent was hypotensive and left IJ CVC was placed. IVF and Rocephin were started in the ED. Past Med Surg Social Fam HX - Past Medical History Medical history: diabetes, fibromyalgia, GERD, hypertension, osteoporosis, pulmonary embolus, thyroid disease Psychiatric history: no psych history - Past Surgical History Surgical History: cholecystectomy, herniorrhaphy, other, bariatric surgery - Social History Smoking Status: Never smoker Smokeless Tobacco Status: No Alcohol use: none Drug use: none Current living situation: Home - Independent, Home Activity Level: Independent ambulation Recent Out of Country Travel Within the Last 8 Weeks: No Exposure or Possible Exposure to Illness During Travel: No - Family History Father Living Status: Hx Family Cardiac Disorders: Yes (HTN) Hx Family Respiratory Disorders: Yes (COPD) Grandfather Hx Family Cardiac Disorders: Yes (HTN, BYPASS) Grandmother Hx Family Cardiac Disorders: Yes (CVA) Hx Family Neuromuscular Disorders: Yes (CVA) Hx Family Neurologic Disorders: Yes (CVA) Internal Medicine - H&P: Meds Aspirin Enteric Coated [Aspirin EC] 81 mg PO DAILY 05/30/15 [History] Meclizine [Antivert] 12.5 - 25 mg PO BID PRN 05/30/15 [History] Ondansetron [Zofran] 4 mg PO TID PRN 05/30/15 [History] cloNIDine HCl [CloNIDine HCl] 0.1 mg PO TID 08/23/15 [History] Ergocalciferol (VITAMIN D2) [Vitamin D2 (50,000 UNIT)] 50,000 unit PO 2XW [History] Sitagliptin Phosphate [Januvia] 50 mg PO DAILY 11/20/15 [History] Tizanidine HCl [Zanaflex] 8 mg PO Q6H PRN 11/20/15 [History] Promethazine [Phenergan] 25 mg PO Q6HR PRN #10 tablet 11/21/15 [Rx] Gabapentin [Neurontin] 600 mg PO TID 07/04/16 [History] hydrOXYzine HCl [Hydroxyzine HCl] 25 mg PO TID PRN 07/04/16 [History] Cyanocobalamin (Vitamin B-12) [Vitamin B-12] 1,000 mcg SL Q48H 07/05/16 [History ] Chlorthalidone 25 mg PO DAILY 09/19/16 [History] Acetaminophen with Codeine [Acetaminophen-Cod #4 Tablet] 1 tab PO TID PRN [History] Multivit-Minerals/Folic Acid [Adult Multivitamin Gummies] 200 mcg PO DAILY 07/19 [History] Nitrofurantoin [Macrodantin] 50 mg PO HS 07/19/17 [History] Magnesium Oxide [Mag-Ox] 400 mg PO DAILY #30 tablet 07/27/17 [Rx] Polyethylene Glycol 3350 [MiraLAX] 17 gm PO DAILY powd.pack 07/27/17 [Rx] Potassium Chloride 20 meq PO DAILY #30 tab.er.prt 07/27/17 [Rx] Triamcinolone Acet 0.1% CRM [Kenalog] 1 appl TP BID #1 tube 07/27/17 [Rx] Famotidine [Pepcid] 20 mg PO DAILY 08/04/17 [History] Furosemide [Lasix] 10 mg PO DAILY 08/04/17 [History] Furosemide [Lasix] 10 mg PO QPM PRN 08/04/17 [History] 3 Allergy/AdvReac Type Severity Reaction Status Date / Time morphine Allergy Severe Difficulty Verified 07/24/17 23:59 Breathing pregabalin [From Lyrica] AdvReac Severe Confusion Verified 07/24/17 23:59 prochlorperazine AdvReac Severe Hallucinati Verified 07/24/17 23:59 [From Compazine] ons Cyclobenzaprine AdvReac Intermediate INCREASED Verified 07/24/17 23:59 [From Flexeril] HEARTRATE methocarbamol [From Robaxin] AdvReac Intermediate MIGRAINES Verified 07/24/17 23 :59 fentanyl AdvReac Vomiting Verified 07/24/17 23:59 metoclopramide [From Reglan] AdvReac See Verified 07/24/17 23:59 Comments pioglitazone [From Actos] AdvReac See Verified 07/24/17 23:59 Comments tape Allergy Rash Uncoded 06/19/17 15:53 steroids AdvReac Hypertensio Uncoded 06/19/17 15:53 n All Systems PM: A 10-system review of systems was performed and is negative for pertinent findings except as documented above in the HPI. - Constitutional Constitutional: chills, fatigue, weakness, weight gain, no fever(s), no falls, no malaise, no weight loss - EENT Eyes: change in vision, floaters, spots in vision, no loss of peripheral vision , no loss of vision, no seeing flashes Nose, mouth and throat: no nasal congestion, no sinus pressure, no sore throat - Cardiovascular Cardiovascular ROS IM: palpitations, no chest pain, no orthopnea - Respiratory Respiratory: no cough, no dyspnea, no excessive phlegm production - Gastrointestinal Gastrointestinal: abdominal pain, cramping, dysphagia, heartburn, nausea, no constipation, no diarrhea, no vomiting - Genitourinary Genitourinary: dysuria, urinary frequency, urinary urgency, no hematuria - Musculoskeletal Musculoskeletal ROS IM: arthralgias, muscle weakness, myalgias, no back pain, no numbness, no tingling - Integumentary Integumentary IM: erythema, new lesions, pruritus, rash, no non-healing lesions , no skin ulcer - Neurological Neurological ROS: focal weakness, weakness, other visual disturbances, no dizziness, no loss of vision, no numbness, no paresthesias, no tingling, no tremor(s) - Psychiatric Psychiatric: anxiety, no depression - Endocrine Endocrine IM: polyuria, no polydipsia, no polyphagia - Hematologic/Lymphatic Hematologic/Lymphatic: no easy bleeding, no easy bruising - Allergic/Immunologic Allergic/Immunologic: uticaria - Constitutional Vitals: Temp Pulse Resp BP Pulse Ox 98.4 F 83 16 110/73 99 08/04/17 13:02 08/04/17 20:57 08/04/17 20:57 08/04/17 20:57 08/04/17 20:57 General appearance: Present: cooperative, mild distress, A&O X 3, pleasant, obese, answers questions appropriately - Head Head exam: Present: atraumatic, normal inspection, normocephalic - Eye Eye exam: Present: EOMI, PERRL, conjuntiva pink - ENT ENT exam: Present: mucous membranes dry, normal oropharynx - Neck Neck exam general surgery: Present: normal inspection, supple. Absent: tenderness - Respiratory Respiratory exam: Present: CTAB. Absent: accessory muscle use, decreased breath sounds, rales, respiratory distress, wheezes - Cardiovascular Cardiovascular exam: Present: +S1, +S2, tachycardia. Absent: diastolic murmur, systolic murmur - GI/Abdominal GI/Abdominal exam: Present: normal bowel sounds, soft, tenderness (lower abd). Absent: distended, guarding, rebound - Additional comments: no cosme - Extremities Exam Extremities exam: Present: full ROM, normal inspection, pedal edema (1+), warm, radial pulses palpable and symmetrical. Absent: tenderness - Back Exam Back exam: Present: CVA tenderness (L), CVA tenderness (R), normal inspection, paraspinal tenderness, tenderness (L-spine) - Neurological Exam Neurological exam: Present: alert, oriented X3, no focal deficits, strengths equal and symetr throughout. Absent: altered, facial droop, speech deficit - Psychiatric Psychiatric exam: Present: anxious, normal affect - Skin Skin exam: Present: erythema, rash (Erythemaous patches with ovelrying dry scales over anterior and posterior thighs bilaterally, abdomen, lower back, buttocks, posterior lower legs, popliteal fossa bilaterally with ill defined borders), warm Internal Med - H&P Results - Labs CBC & Chem 7: 08/04/17 19:28 08/04/17 23:27 Labs: Short CBC 08/04/17 Range/Units 19:28 WBC 10.4 (4.3-11.1) K/mcL Hgb 9.5 L (11.5-15.4) g/dL Hct 29.6 L (35.3-44.9) % Plt Count 257 (140-400) K/mcL Neutrophils # 6.7 (1.6-8.9) K/mcL BMP 08/04/17 19:28 Sodium 135 L Potassium 2.8 L Chloride 95 L Carbon Dioxide 29 BUN 16 Creatinine 0.87 Glucose 230 H Calcium 7.3 L Cardiac Enzymes 08/04/17 Range/Units 14:56 Troponin I 0.00 (0-0.03) ng/mL Liver Function 08/04/17 Range/Units 14:56 Total Bilirubin 1.2 (0.2-1.2) mg/dL Direct Bilirubin 0.5 (0.0-0.5) mg/dL AST 46 H (5-34) Units/L ALT 22 (0-55) Units/L Alkaline Phosphatase 140 H (38-126) Units/L Albumin 2.2 L (3.5-5.0) g/dL Urine 08/04/17 Range/Units 17:37 Urine Color [place] A (Yellow) Urine Clarity Cloudy A (Clear) Urine pH 6.0 (5.0-8.0) pH Units Ur Specific [place] 1.030 H (1.010-1.025) Urine Protein Negative (Neg-Trace) mg/dL Urine Glucose (UA) Normal (Normal) mg/dL - EKG Data -: EKG Interpreted by Myself EKG shows normal: sinus rhythm (NSR rate 77, IL interval 149, short jew 100, QTC 438, axis -16, no hyperacute T waves, no ST segment elevations or depressions. No signs of acute ischemia), ST-T waves - Impressions ITS Impressions Chest X-Ray 08/04/17 13:06 IMPRESSION: Hypoinflated lungs and subsegmental atelectasis. D/ / Rosalinda Coppola MD / Rosalinda Coppola MD Interpreting Provider: Rosalinda Coppola MD Chest X-Ray 08/04/17 19:17 IMPRESSION: Central line in satisfactory position. D/ / Stanislav Cohen MD / Stanislav Cohen MD Interpreting Provider: Stanislav Cohen MD
[2017-08-04] MEDS ORDERED: *HR* Promethazine 25 MG/ML VIAL IVP PRN (22:43)
[2017-08-04] MEDS ORDERED: Naloxone 0.4 MG/ML INJ IVP PRN (22:43)
[2017-08-04] MEDS ORDERED: *HR* Acetaminophen w/Cod 300-30 mg 1 TAB TABLET PO PRN (22:45)
[2017-08-04] MEDS ORDERED: hydrOXYzine pamoate 25 MG CAPSULE PO PRN (22:45)
[2017-08-04] MEDS ORDERED: 0.9 % Sodium Chloride 1,000 ML IVC SCH (22:45)
[2017-08-04] MEDS ORDERED: Dextrose Gel 15 GM PO PRN ×2 (22:50)
[2017-08-04] MEDS ORDERED: D5% in Water 1,000 ML IVC PRN (22:50)
[2017-08-04] MEDS ORDERED: *HR* Dextrose 50 % in Water (Syg) 50 ML SYRINGE IVP PRN (22:50)
--- NOTE | 2017-08-04 23:30 | Event Note ---
Date of Encounter: 08/04/17 Time of Encounter: 23:30 Patient and examined with certified ophthalmic medical technician. Agree with assessment and plan
[2017-08-04 23:53] LABS: Magnesium 1.4 mg/dL (1.6-2.6); Phosphorous 2.6 mg/dL (2.3-4.7); Potassium 3.4 mEq/L (3.5-4.5)
[2017-08-05] MEDS: Insulin LISPRO 300 UNITS/3 ML VIAL SQ SCH ×5 (00:01→22:01)
[2017-08-05] MEDS: Insulin DETEMIR 100 UNIT/ML X5UNITS SQ SCH ×2 (00:01→22:02)
[2017-08-05] MEDS ORDERED: 0.9 % Sodium Chloride 500 ML ONE (00:28)
[2017-08-05] MEDS ORDERED: Potassium Effervescent 25 MEQ TABLET.EFF PO ONE (01:32)
[2017-08-05] MEDS ORDERED: Magnesium Sulfate 2 GM in D5% in Water 100 ML IVPB ONE (01:56)
[2017-08-05] MEDS ORDERED: Gabapentin 300 MG CAPSULE PO ONE (02:36)
[2017-08-05] MEDS: tiZANidine 4 MG TABLET PO PRN ×3 (02:47→22:25)
[2017-08-05 04:52] LABS: Basophils % 0.2 %; Eosinophils # 0.4 K/mcL (0.0-0.6); Eosinophils % 3.1 %; Hematocrit 27.3 % (35.3-44.9); Hemoglobin 8.5 g/dL (11.5-15.4); Immature Granulocytes % 0.4 % (0-4); Lymphocytes # 3.7 K/mcL (0.6-4.6); Lymphocytes % 30.1 %; Mean Corpuscular HGB Conc 31.1 g/dL (31.6-35.5); Mean Corpuscular Hemoglobin 28.7 pg (28.0-33.3); Mean Corpuscular Volume 92.2 fL (83.0-100.0); Mean Platelet Volume 9.8 fL (9.4-12.4); Monocytes # 0.7 K/mcL (0.0-1.3); Monocytes % 5.9 %; Neutrophils # 7.3 K/mcL (1.6-8.9); Platelet Count 254 K/mcL (140-400); Red Blood Count 2.96 M/mcL (3.82-4.97); Red Cell Distribution Width 14.7 % (11.5-14.5); Segmented Neutrophils % 60.3 %
[2017-08-05 05:05] LABS: Alanine Aminotransferase 15 Units/L (0-55); Albumin/Globulin Ratio 0.6 (1.1-2.2); Alkaline Phosphatase 100 Units/L (38-126); Aspartate Amino Transferase 20 Units/L (5-34); BUN/Creatinine Ratio 18 (6-26); Bilirubin,Total 0.6 mg/dL (0.2-1.2); Blood Urea Nitrogen 14 mg/dL (7-20); Calcium 6.8 mg/dL (8.6-10.8); Carbon Dioxide 29 mEq/L (19-29); Chloride 97 mEq/L (98-109); Globulin 2.4 g/dL (2.4-3.5); Glucose 162 mg/dL (70-99); Osmolality,Calculated 276 (280-300); Sodium 131 mEq/L (136-145); eGFR For African Americans > 60 (> 60); eGFR For Non-African Americans > 60 (> 60)
[2017-08-05 05:06] LABS: Albumin 1.5 g/dL (3.5-5.0); Total Protein 3.9 g/dL (6.0-8.3)
[2017-08-05 05:12] LABS: Magnesium 1.9 mg/dL (1.6-2.6)
[2017-08-05] MEDS: *HR* Heparin 5,000 UNIT/ML VIAL SQ SCH ×3 (05:30→22:02)
[2017-08-05] MEDS: Magnesium Oxide 400 MG TABLET PO SCH (11:02)
[2017-08-05] MEDS: Aspirin Enteric Coated 81 MG Tablet PO SCH (11:03)
[2017-08-05] MEDS: Cyanocobalamin (B-12) 1,000 MCG TABLET PO SCH (11:03)
[2017-08-05] MEDS: Gabapentin 300 MG CAPSULE PO SCH ×3 (11:03→22:02)
[2017-08-05] MEDS: Multivit/Ca/Min/Fe/FA 1 TAB TABLET PO SCH (11:03)
--- NOTE | 2017-08-05 11:07 | Internal Med Progress Note ---
<Gabriella Farris - Last Filed: 08/05/17 14:58> Date of Encounter: 08/05/17 Time of Encounter: 10:36 - Assessment and plan (1) Sepsis Current Visit: No Status: Acute Assessment and plan: Patient with 2 SIRS criteria on admission with heart rate of 99 and lactic acid 4.2. -Lactic acid trending down to 2.8 today. -Patient's blood pressure stable in the low normal range. -Heart rate trending down within the normal range. -Continue to hold diuretics due to hypotension Qualifiers: Sepsis type: sepsis due to unspecified organism Qualified Code(s): A41.9 - Sepsis, unspecified organism (2) UTI (urinary tract infection) Current Visit: Yes Status: Acute Assessment and plan: Patient with an extensive history of recurrent UTIs, history of Klebsiella and Escherichia coli. -Patient reports daily Macrobid since 02/24/2017 -Urine culture was gossly mixed, unable to interpret. -Re-order urine culture, FU results. -Continue ceftriaxone day 2. Qualifiers: Urinary tract infection type: acute cystitis Hematuria presence: without hematuria Qualified Code(s): N30.00 - Acute cystitis without hematuria (3) Anasarca Current Visit: Yes Status: Acute Assessment and plan: Patient with diffuse swelling over her entire body. -Patient has poor nutrition with low albumin. -We are unable to treat her with diuretics currently as patient has been hypotensive and we will wait to see what the kidney function does. (4) Hypothyroidism Current Visit: Yes Status: Chronic Assessment and plan: Patient's TSH elevated at 7.24. -Due to patient's diffuse anasarca, bowel resection, and gastric bypass, patient probably has poor absorption, so we will start Synthroid at 100 g. 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 -Patient sees neurologist in outpatient. -Will order MRI brain to rule out brain lesions. -PT/OT consulted for weakness. (6) Spongiotic psoriasiform dermatitis Current Visit: Yes Status: Chronic Assessment and plan: Skin biopsy 2014 indicated psoriasis. -Patient's rash has spread from her groin to her legs back right chest and hands bilaterally. She has been applying topical steroids which have not provided relief. -Follow up dermatology recommendations. 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 We will start solumedrol. (7) Cardiomyopathy Current Visit: No Status: Resolved Assessment and plan: Takotsubo cardiomyopathy with ejection fraction of 30% in 2012. -Echocardiogram in 02/06/2017 reveals LVEF of 60-65%. -Patient reports 25 pound weight gain in the past 2 weeks. -BMP is 51. -Patient has diffuse swelling over her entire body consistent with anasarca. -Continue gentle hydration given hypotension, hold diuretics due to hypertension. Qualifiers: Cardiomyopathy type: ischemic Qualified Code(s): I25.5 - Ischemic cardiomyopathy (8) Hypertension Current Visit: No Status: Chronic Assessment and plan: Hold home antihypertensive medications due to hypotension. Qualifiers: Hypertension type: essential hypertension Qualified Code(s): I10 - Essential (primary) hypertension (9) Fibromyalgia Current Visit: No Status: Chronic Assessment and plan: Continue to monitor. (10) Hypokalemia Current Visit: Yes Status: Acute Assessment and plan: Replete as needed in addition to: -Daily potassium chloride by mouth. (11) Hypomagnesemia Current Visit: No Status: Acute Assessment and plan: Supplement magnesium. -Continue to monitor. (12) Obesity (BMI 30-39.9) Current Visit: Yes Status: Chronic Assessment and plan: Patient has had a gastric bypass surgery. -Continue to advocate for lifestyle changes. (13) DVT prophylaxis Current Visit: Yes Status: Acute Assessment and plan: Heparin subcutaneous 3 times a day. - Subjective Interval history: Ms. Tovar is a 47-year-old female with multiple medical comorbidities who presented to the emergency department one day ago with bilateral lower extremity edema, weakness, and weight gain. Patient was found to be septic with a UTI. This morning, patient says she feels about the same from yesterday. She does state she is having some difficulty voiding, however, she hopes to avoid the need of a Bella catheter. Patient's mother was at bedside. Both patient and mother are very accurate historians of the patient's medical history which is lengthy and complicated. Patient states she has a new diagnosis of psoriasis. She has not been started on any new medications for this diagnosis. She states her worst complaint is her leg pain which she describes as tightness, not necessarily tenderness in her joints. - Constitutional Vitals: Temp Pulse Resp BP Pulse Ox 98.0 F 66 15 105/68 97 08/05/17 07:37 08/05/17 07:37 08/05/17 07:37 08/05/17 07:37 08/05/17 07:59 General appearance: Present: cooperative, mild distress, A&O X 3, pleasant, obese, answers questions appropriately - Respiratory Respiratory exam: Present: CTAB. Absent: accessory muscle use, rales, rhonchi, wheezes - Cardiovascular Cardiovascular exam: Present: RRR, +S1, +S2. Absent: diastolic murmur, gallop, rubs, systolic murmur - GI/Abdominal GI/Abdominal exam: Present: normal bowel sounds, soft, tenderness, no peritoneal signs. Absent: distended - Extremities Exam Extremities exam: Present: pedal edema (3 + pitting edema), warm, radial pulses palpable and symmetrical. Absent: calf tenderness, cyanotic - Skin Skin exam: Present: dry, intact Additional comments: Patient has large areas of pink patches which are confluent over her bilateral lower extremities and her abdomen as well as upper extremities. These have scaling and appear salmon colored in some places. Patient has a reticular appearance to the vasculature over her wrists. She also has a blister on her right thumb. Internal Medicine: Result - Labs CBC & Chem 7: 08/05/17 04:45 08/05/17 04:45 Labs: Short CBC 08/05/17 Range/Units 04:45 WBC 12.1 H (4.3-11.1) K/mcL Hgb 8.5 L (11.5-15.4) g/dL Hct 27.3 L (35.3-44.9) % Plt Count 254 (140-400) K/mcL Neutrophils # 7.3 (1.6-8.9) K/mcL BMP 08/04/17 08/05/17 23:27 04:45 Sodium 131 L Potassium 3.4 L 4.0 Chloride 97 L Carbon Dioxide 29 BUN 14 Creatinine 0.76 Glucose 162 H Calcium 6.8 L Liver Function 08/05/17 Range/Units 04:45 Total Bilirubin 0.6 (0.2-1.2) mg/dL AST 20 (5-34) Units/L ALT 15 (0-55) Units/L Alkaline Phosphatase 100 (38-126) Units/L Albumin 1.5 L D (3.5-5.0) g/dL - ABG Interpretation ABG results: PT/INR, D-dimer PT 13.0 Seconds (9.4-12.1) H 08/04/17 19:28 Consult Discharge Plan - Plan Referrals: NONE,PCP [Primary Care Provider] - (will wait and see what patient d/c plans are) <Vivek Moraes H - Last Filed: 08/05/17 15:56> Date of Encounter: 08/05/17 - Constitutional Vitals: Temp Pulse Resp BP Pulse Ox 97.8 F 89 16 98/73 97 08/05/17 11:40 08/05/17 11:40 08/05/17 11:40 08/05/17 11:40 08/05/17 07:59 Internal Medicine: Result - Labs CBC & Chem 7: 08/05/17 04:45 08/05/17 04:45 Labs: Short CBC 08/05/17 Range/Units 04:45 WBC 12.1 H (4.3-11.1) K/mcL Hgb 8.5 L (11.5-15.4) g/dL Hct 27.3 L (35.3-44.9) % Plt Count 254 (140-400) K/mcL Neutrophils # 7.3 (1.6-8.9) K/mcL BMP 08/04/17 08/05/17 23:27 04:45 Sodium 131 L Potassium 3.4 L 4.0 Chloride 97 L Carbon Dioxide 29 BUN 14 Creatinine 0.76 Glucose 162 H Calcium 6.8 L Liver Function 08/05/17 Range/Units 04:45 Total Bilirubin 0.6 (0.2-1.2) mg/dL AST 20 (5-34) Units/L ALT 15 (0-55) Units/L Alkaline Phosphatase 100 (38-126) Units/L Albumin 1.5 L D (3.5-5.0) g/dL - ABG Interpretation ABG results: PT/INR, D-dimer PT 13.0 Seconds (9.4-12.1) H 08/04/17 19:28 - Impressions Impressions Retroperitoneum Ultrasound 08/05/17 09:00 IMPRESSION: Unremarkable ultrasound of the kidneys. Mild urinary bladder wall thickening, may be related to cystitis. Small ascites at the right lower quadrant and small free fluid in the pelvis. D/ / Vivek Zurita MD / Vivek Zurita MD Interpreting Provider: Vivek Zurita MD - Attending Attestation Sepsis secondary to urinary tract infection likely related to prior urinary retention Continue Rocephiyuki Keep Bella in I examined this patient and my medical decision-making was reviewed with the Resident Physician. I agree with the documented findings, disposition and treatment plan as described except to the extent set forth below.
[2017-08-05] MEDS ORDERED: *HR* OxyCODONE Immed Rel 5 MG TABLET PO PRN (11:32)
[2017-08-05] MEDS ORDERED: Lidocaine Jelly 6ml 1 APPL/6 ML JEL.PF.APP TP ONE (11:53)
--- NOTE | 2017-08-05 12:38 | Dermatology Consult Note ---
Date of Encounter: 08/07/17 Time of Encounter: 12:36 History of Present Illness Reason for Consult: rash History of Present Illness: 47 y/o wf admitted for edema, weakness, and UTI. Pt w/ hx of psoriasis eruption in 2014 that was biopsy proven as an inpatient and improved w/ topical steroids. She was seen last week for more redness on lower legs that was overlying edematous legs. Topical steroids were started again. Pt c/o worsening rash on body and thinks it is sore and occ itchy. The cream hasn't been helping much Review of Systems General/Constitutional: Patient denies fevers, chills, nor recent unintended weight loss, night sweats, no change in appetite or malaise. Hematologic: Patient denies new or enlarging lumps or bumps. Skin: Patient denies new or changing moles, or rash other than what is mentioned above. Past Med Surg Social Fam HX - Past Medical History Medical history: diabetes, fibromyalgia, GERD, hypertension, osteoporosis, pulmonary embolus, thyroid disease Psychiatric history: no psych history - Past Surgical History Surgical History: cholecystectomy, herniorrhaphy, other, bariatric surgery - Social History Smoking Status: Never smoker Smokeless Tobacco Status: No Alcohol use: none Drug use: none - Family History Father Living Status: Hx Family Cardiac Disorders: Yes (HTN) Hx Family Respiratory Disorders: Yes (COPD) Grandfather Hx Family Cardiac Disorders: Yes (HTN, BYPASS) Grandmother Adopted: No Twin of Family Member: Yes, Fraternal Living Status: Still Living Hx Family Cardiac Disorders: Yes (CVA) Hx Family Respiratory Disorders: Yes (father copd, asthma) Hx Family Cancer: Yes (Breast cancer) Hx Family GI Disorders: No Hx Family Genitourinary Disorders: No Hx Family Endocrine Disorder: Yes (DM and thyroid) Hx Family Musculoskeletal Disorders: No Hx Family Neuromuscular Disorders: Yes (CVA) Hx Family Neurologic Disorders: Yes (CVA) Hx Family HEENT Disorders: No Hx Family Autoimmune Disorders: No Hx Family Reproductive Disorders: No Hx Family Psychosocial Disorders: No Hx Family Medical Disorders: No Medications and Allergies Aspirin Enteric Coated [Aspirin EC] 81 mg PO DAILY 05/30/15 [History] Meclizine [Antivert] 12.5 - 25 mg PO BID PRN 05/30/15 [History] Ondansetron [Zofran] 4 mg PO TID PRN 05/30/15 [History] Ergocalciferol (VITAMIN D2) [Vitamin D2 (50,000 UNIT)] 50,000 unit PO 2XW [History] Sitagliptin Phosphate [Januvia] 50 mg PO DAILY 11/20/15 [History] Tizanidine HCl [Zanaflex] 8 mg PO Q6H PRN 11/20/15 [History] Promethazine [Phenergan] 25 mg PO Q6HR PRN #10 tablet 11/21/15 [Rx] Gabapentin [Neurontin] 600 mg PO TID 07/04/16 [History] hydrOXYzine HCl [Hydroxyzine HCl] 25 mg PO TID PRN 07/04/16 [History] Cyanocobalamin (Vitamin B-12) [Vitamin B-12] 1,000 mcg SL Q48H 07/05/16 [History ] Acetaminophen with Codeine [Acetaminophen-Cod #4 Tablet] 1 tab PO TID PRN [History] Multivit-Minerals/Folic Acid [Adult Multivitamin Gummies] 200 mcg PO DAILY 07/19 [History] Magnesium Oxide [Mag-Ox] 400 mg PO DAILY #30 tablet 07/27/17 [Rx] Polyethylene Glycol 3350 [MiraLAX] 17 gm PO DAILY powd.pack 07/27/17 [Rx] Potassium Chloride 20 meq PO DAILY #30 tab.er.prt 07/27/17 [Rx] Triamcinolone Acet 0.1% CRM [Kenalog] 1 appl TP BID #1 tube 07/27/17 [Rx] Famotidine [Pepcid] 20 mg PO DAILY 08/04/17 [History] Cefdinir [Omnicef] 300 mg PO BID #8 capsule 08/07/17 [Rx] Cephalexin [Keflex] 500 mg PO DAILY #30 capsule 08/07/17 [Rx] Furosemide [Lasix] 20 mg PO BID #60 tablet 08/07/17 [Rx] Levothyroxine [Synthroid] 100 mcg PO 0630 #30 tablet 08/07/17 [Rx] cloNIDine HCl [CloNIDine HCl] 0.1 mg PO BID #60 tablet 08/07/17 [Rx] predniSONE [PredniSONE] 10 mg PO DAILY 28 Days tablet 08/07/17 [Rx] 3 Allergy/AdvReac Type Severity Reaction Status Date / Time morphine Allergy Severe Difficulty Verified 07/24/17 23:59 Breathing pregabalin [From Lyrica] AdvReac Severe Confusion Verified 07/24/17 23:59 prochlorperazine AdvReac Severe Hallucinati Verified 07/24/17 23:59 [From Compazine] ons Cyclobenzaprine AdvReac Intermediate INCREASED Verified 07/24/17 23:59 [From Flexeril] HEARTRATE methocarbamol [From Robaxin] AdvReac Intermediate MIGRAINES Verified 07/24/17 23 :59 fentanyl AdvReac Vomiting Verified 07/24/17 23:59 metoclopramide [From Reglan] AdvReac See Verified 07/24/17 23:59 Comments pioglitazone [From Actos] AdvReac See Verified 07/24/17 23:59 Comments tape Allergy Rash Uncoded 06/19/17 15:53 steroids AdvReac Hypertensio Uncoded 06/19/17 15:53 n Examination Vital Signs: Temp Pulse Resp BP Pulse Ox 98.0 F 66 15 105/68 97 08/05/17 07:37 08/05/17 07:37 08/05/17 07:37 08/05/17 07:37 08/05/17 07:59 General Examination: The patient appears alert, oriented X3, in no acute distress but looks fatigued , normal mood. A detailed skin examination of sites including: scalp, head, neck , face, conjunctive, lids, lips, chest/breast/axilla, abdomen, bilateral upper extremities including hands/digits/fingernails, and lower legs normal except widespread pitting edema. pink ill defined erythematous patches confluent on abdomen and lower legs and arms. faint poikiloderma on forearms. salmon colored patches overlyig DIP and MCp joint. faintly dilated capillaries in cuticles abdomen and hand- r/o pso vs Dermatomyostis (or both) - Assessment and Plan (1) Rash and nonspecific skin eruption Current Visit: No Status: Acute pt w/ known psoriasisform dermatitis; but gottron like papules on hands and muscle weakness concerning for DM. Did punch biopsies of both hand and abdomen to figure out etiology. Rec check Hedy, cpk, aldolase and to use topical steroid. I"m fine w/ systemic steroids as well in meantime while await biopsy results. Pt thankfully will f/u in our clinic soon w/ Dr. Villalta Procedure: Dermatology Date of procedure: 08/05/17 Procedure: Punch biopsy(s) of the lesion noted above to establish and confirm diagnosis. The procedure, risks, benefits, alternatives and expected outcomes were discussed with the patient and consent was obtained. Time out called. Patient identified, procedure verified, site(s) identified and verified. Patient and staff '0present in agreement. Area(s) prepped with alcohol and anesthetized with 1.0% lidocaine with epinephrine at 1:100,000 concentration. 4*ml of lidocaine with epinephrine were injected Biopsy(s) of lesion performed. Lesion(s) closed with 4-* suture and bandaging applied. Specimen(s) sent to pathology. Patient instructed in routine post-op care. Patient instructed in routine post-op care and wound care handout given. biopsy of hand and abdomen performed Consult Discharge Plan - Plan Additional Instructions: Follow-up with primary care physician within the next 7 days. Continue prednisone taper until follow-up with dermatology. Complete 4 more days of cefdinir, start cephalexin once daily after completing doses of cefdinir. Stop Macrobid, chlorthalidone and decrease clonidine dose to 0.1 twice a day only. Start Lasix 20 mg twice a day, may hold blood Lasix if blood pressure is low or becomes dehydrated. Can straight cath if still having urinary retention. Follow up with urology within the next 1-2 weeks. Referrals: NONE,PCP [Primary Care Provider] - (will wait and see what patient d/c plans are) Prescriptions: Cefdinir [Omnicef] 300 mg PO BID #8 capsule Cephalexin [Keflex] 500 mg PO DAILY #30 capsule cloNIDine HCl [CloNIDine HCl] 0.1 mg PO BID #60 tablet Furosemide [Lasix] 20 mg PO BID #60 tablet Levothyroxine [Synthroid] 100 mcg PO 30 #30 tablet predniSONE [PredniSONE] 10 mg PO DAILY 28 Days tablet
[2017-08-05] MEDS: Ondansetron 4 MG/2 ML VIAL IVP PRN (13:18)
[2017-08-05] MEDS: MethylPREDNISolone 40 MG/ML VIAL IVP SCH ×2 (13:18→17:16)
[2017-08-05] MEDS: *HR* OxyCODONE Immed Rel 5 MG TABLET PO PRN (13:18)
[2017-08-05] MEDS: Vitamin B Complex/Vit C/Vit E 1 EACH TABLET PO SCH (17:16)
--- NOTE | 2017-08-05 18:26 | Electrocardiograph Report ---
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
[2017-08-06] MEDS: Ondansetron 4 MG/2 ML VIAL IVP PRN ×2 (03:15→16:44)
[2017-08-06] MEDS: *HR* OxyCODONE Immed Rel 5 MG TABLET PO PRN ×2 (03:15→16:44)
[2017-08-06 03:17] LABS: Hematocrit 27.6 % (35.3-44.9); Hemoglobin 8.7 g/dL (11.5-15.4); Immature Granulocytes % 0.8 % (0-4); Lymphocytes # 1.9 K/mcL (0.6-4.6); Lymphocytes % 21.2 %; Mean Corpuscular HGB Conc 31.5 g/dL (31.6-35.5); Mean Corpuscular Hemoglobin 28.8 pg (28.0-33.3); Mean Corpuscular Volume 91.4 fL (83.0-100.0); Mean Platelet Volume 9.6 fL (9.4-12.4); Monocytes # 0.3 K/mcL (0.0-1.3); Monocytes % 3.9 %; Neutrophils # 6.5 K/mcL (1.6-8.9); Platelet Count 213 K/mcL (140-400); Red Blood Count 3.02 M/mcL (3.82-4.97); Red Cell Distribution Width 14.7 % (11.5-14.5); Segmented Neutrophils % 74.1 %
[2017-08-06 03:28] LABS: BUN/Creatinine Ratio 19 (6-26); Blood Urea Nitrogen 15 mg/dL (7-20); Calcium 7.2 mg/dL (8.6-10.8); Carbon Dioxide 28 mEq/L (19-29); Chloride 96 mEq/L (98-109); Glucose 248 mg/dL (70-99); Osmolality,Calculated 279 (280-300); Potassium 4.1 mEq/L (3.5-4.5); Sodium 130 mEq/L (136-145); eGFR For African Americans > 60 (> 60); eGFR For Non-African Americans > 60 (> 60)
[2017-08-06 03:50] LABS: Triiodothyronine (T3) Total 0.34 ng/mL (0.58-1.59)
[2017-08-06] MEDS: MethylPREDNISolone 40 MG/ML VIAL IVP SCH ×2 (06:19→17:11)
[2017-08-06] MEDS: *HR* Heparin 5,000 UNIT/ML VIAL SQ SCH ×3 (06:19→22:34)
[2017-08-06] MEDS: Multivit/Ca/Min/Fe/FA 1 TAB TABLET PO SCH (08:39)
[2017-08-06] MEDS: Magnesium Oxide 400 MG TABLET PO SCH (08:39)
[2017-08-06] MEDS: Aspirin Enteric Coated 81 MG Tablet PO SCH (08:39)
[2017-08-06] MEDS: Vitamin B Complex/Vit C/Vit E 1 EACH TABLET PO SCH (08:39)
[2017-08-06] MEDS: Insulin LISPRO 300 UNITS/3 ML VIAL SQ SCH ×4 (08:40→20:36)
[2017-08-06] MEDS: Gabapentin 300 MG CAPSULE PO SCH ×3 (08:40→20:27)
[2017-08-06] MEDS: tiZANidine 4 MG TABLET PO PRN ×2 (08:55→20:27)
--- NOTE | 2017-08-06 09:51 | Internal Med Progress Note ---
Date of Encounter: 08/06/17 Time of Encounter: 09:50 - Assessment and plan (1) UTI (urinary tract infection) Current Visit: Yes Status: Acute Assessment and plan: Sepsis secondary to UTI Patient with an extensive history of recurrent UTIs, history of Klebsiella and Escherichia coli. -Patient reports daily Macrobid since 02/24/2017 -Urine culture was gossly mixed, unable to interpret. -Re-order urine culture, FU results. -Continue ceftriaxone day 3. Qualifiers: Urinary tract infection type: acute cystitis Hematuria presence: without hematuria Qualified Code(s): N30.00 - Acute cystitis without hematuria (2) Diabetes Current Visit: No Status: Chronic Qualifiers: Diabetes mellitus type: type 2 Diabetes mellitus complication status: with unspecified complications Diabetes mellitus halfway insulin use: without halfway use Qualified Code(s): E11.8 - Type 2 diabetes mellitus with unspecified complications (3) Sepsis Current Visit: Yes Status: Acute Qualifiers: Sepsis type: sepsis due to unspecified organism Qualified Code(s): A41.9 - Sepsis, unspecified organism (4) History of gastric bypass Current Visit: No Status: Acute (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 -Patient's rash has spread from her groin to her legs back right chest and hands bilaterally. She has been applying topical steroids which have not provided relief. -Follow up dermatology recommendations. -Derm had concern for dermatomyositis, but CK is normal ANAs pending Continue solumedrol. (6) Hypothyroidism Current Visit: Yes Status: Chronic Assessment and plan: Patient's TSH elevated at 7.24. Synthroid 100 g started. Qualifiers: Hypothyroidism type: unspecified Qualified Code(s): E03.9 - Hypothyroidism , unspecified (7) Anasarca Current Visit: Yes Status: Acute Assessment and plan: Patient with diffuse swelling over her entire body. -Patient has poor nutrition with low albumin. May start Lasix. Discontinue IV fluids (8) Migraine Current Visit: No Status: Acute Assessment and plan: History of migraines this MRI of the brain showed:Mild amount of nonspecific T2 hyperintense white matter lesions. Differential includes mild chronic small vessel ischemic white matter disease, demyelination, sequela of migraines, or other vasculopathy is. No acute infarct, intracranial hemorrhage, or significant mass effect. Follows up with Dr. Soliman/neurology as outpatient Qualifiers: Migraine type: without aura Status migrainosus presence: without status migrainosus Intractability: not intractable Qualified Code(s): G43.009 - Migraine without aura, not intractable, without status migrainosus (9) Cardiomyopathy Current Visit: No Status: Resolved Assessment and plan: Takotsubo cardiomyopathy with ejection fraction of 30% in 2013. -Echocardiogram in 02/06/2017 reveals LVEF of 60-65%. -Patient reports 25 pound weight gain in the past 2 weeks. -Patient has diffuse swelling over her entire body consistent with anasarca. Qualifiers: Cardiomyopathy type: ischemic Qualified Code(s): I25.5 - Ischemic cardiomyopathy - Subjective Interval history: The patient's blood pressure is normal low, complains of pain on both lower extremities from swelling. Denies any chest pain or shortness of breath. Dermatologic lesions seem to be improving. No fevers - Constitutional Vitals: Temp Pulse Resp BP Pulse Ox 97.6 F 57 15 91/58 93 08/06/17 08:01 08/06/17 08:01 08/06/17 08:01 08/06/17 08:01 08/06/17 08:01 General appearance: Present: cooperative, mild distress, A&O X 3, pleasant, obese, answers questions appropriately - Head Head exam: Present: atraumatic, normocephalic - Eye Eye exam: Present: PERRL, conjuntiva pink, sclera anicteric Pupils: Present: PERRL - Neck Neck exam general surgery: Present: supple, trachea midline. Absent: lymphadenopathy - Respiratory Respiratory exam: Present: decreased breath sounds, CTAB. Absent: accessory muscle use, rales, rhonchi, wheezes - Cardiovascular Cardiovascular exam: Present: RRR, +S1, +S2. Absent: diastolic murmur, gallop, rubs, systolic murmur - GI/Abdominal GI/Abdominal exam: Present: distended, normal bowel sounds, soft, no peritoneal signs. Absent: tenderness - Extremities Exam Extremities exam: Present: pedal edema (Severe +3 pitting edema in both lower extremities), warm, radial pulses palpable and symmetrical. Absent: calf tenderness, cyanotic - Neurological Exam Neurological exam: Present: CN II-XII intact, oriented X3, no focal deficits. Absent: pronater drift, facial droop, speech deficit - Skin Skin exam: Present: dry. Absent: intact (Dermatologic erythematous scaly lesions throughout her body mildly improving) Additional comments: Bella catheter in place Internal Medicine: Result - Labs CBC & Chem 7: 08/06/17 03:00 08/06/17 03:00 - ABG Interpretation ABG results: PT/INR, D-dimer PT 13.0 Seconds (9.4-12.1) H 08/04/17 19:28 Consult Discharge Plan - Plan Referrals: NONE,PCP [Primary Care Provider] - (will wait and see what patient d/c plans are)
[2017-08-06] MEDS: Furosemide 20 MG/2 ML VIAL IVP SCH ×2 (10:51→20:28)
[2017-08-06] MEDS: *HR* Acetaminophen w/Cod 300-30 mg 1 TAB TABLET PO PRN (20:27)
[2017-08-06] MEDS: Insulin DETEMIR 100 UNIT/ML X5UNITS SQ SCH (20:28)
[2017-08-07] MEDS: tiZANidine 4 MG TABLET PO PRN ×3 (03:44→21:01)
[2017-08-07] MEDS: *HR* Acetaminophen w/Cod 300-30 mg 1 TAB TABLET PO PRN (03:44)
[2017-08-07 03:49] LABS: Hemoglobin 9.7 g/dL (11.5-15.4); Mean Corpuscular HGB Conc 31.3 g/dL (31.6-35.5); Mean Corpuscular Volume 92.5 fL (83.0-100.0); Mean Platelet Volume 9.3 fL (9.4-12.4); Platelet Count 303 K/mcL (140-400); Red Blood Count 3.35 M/mcL (3.82-4.97); Red Cell Distribution Width 14.7 % (11.5-14.5)
[2017-08-07 04:05] LABS: BUN/Creatinine Ratio 20 (6-26); Blood Urea Nitrogen 19 mg/dL (7-20); Calcium 7.7 mg/dL (8.6-10.8); Carbon Dioxide 26 mEq/L (19-29); Chloride 96 mEq/L (98-109); Glucose 152 mg/dL (70-99); Osmolality,Calculated 277 (280-300); Potassium 4.7 mEq/L (3.5-4.5); Sodium 131 mEq/L (136-145); eGFR For African Americans > 60 (> 60); eGFR For Non-African Americans > 60 (> 60)
[2017-08-07] MEDS: MethylPREDNISolone 40 MG/ML VIAL IVP SCH ×2 (05:49→17:36)
[2017-08-07] MEDS: *HR* Heparin 5,000 UNIT/ML VIAL SQ SCH ×3 (05:49→21:00)
--- NOTE | 2017-08-07 08:15 | Discharge Summary ---
Date of Encounter: 08/07/17 Time of Encounter: 08:12 - Discharge Diagnosis (1) UTI (urinary tract infection) Priority: Primary Status: Acute Comments: Secondary to UTI Qualifiers: Urinary tract infection type: acute cystitis Hematuria presence: without hematuria Qualified Code(s): N30.00 - Acute cystitis without hematuria (2) Sepsis Priority: Primary Status: Acute Qualifiers: Sepsis type: sepsis due to unspecified organism Qualified Code(s): A41.9 - Sepsis, unspecified organism (3) Diabetes Priority: Secondary Status: Chronic Qualifiers: Diabetes mellitus type: type 2 Diabetes mellitus complication status: with unspecified complications Diabetes mellitus half-way insulin use: without half-way use Qualified Code(s): E11.8 - Type 2 diabetes mellitus with unspecified complications (4) History of gastric bypass Priority: Secondary Status: Acute (5) Spongiotic psoriasiform dermatitis Priority: Secondary Status: Chronic (6) Hypothyroidism Priority: Secondary Status: Chronic Qualifiers: Hypothyroidism type: unspecified Qualified Code(s): E03.9 - Hypothyroidism , unspecified (7) Anasarca Priority: Secondary Status: Acute (8) Migraine Priority: Secondary Status: Acute Qualifiers: Migraine type: without aura Status migrainosus presence: without status migrainosus Intractability: not intractable Qualified Code(s): G43.009 - Migraine without aura, not intractable, without status migrainosus (9) Cardiomyopathy Priority: Secondary Status: Resolved Qualifiers: Cardiomyopathy type: ischemic Qualified Code(s): I25.5 - Ischemic cardiomyopathy - Discharge Medications Prescriptions: Cefdinir [Omnicef] 300 mg PO BID #8 capsule Cephalexin [Keflex] 500 mg PO DAILY #30 capsule cloNIDine HCl [CloNIDine HCl] 0.1 mg PO BID #60 tablet Furosemide [Lasix] 20 mg PO BID #60 tablet Levothyroxine [Synthroid] 100 mcg PO 0630 #30 tablet predniSONE [PredniSONE] 10 mg PO DAILY 28 Days tablet Home Medications: Aspirin Enteric Coated [Aspirin EC] 81 mg PO DAILY 05/30/15 [History] Meclizine [Antivert] 12.5 - 25 mg PO BID PRN 05/30/15 [History] Ondansetron [Zofran] 4 mg PO TID PRN 05/30/15 [History] Ergocalciferol (VITAMIN D2) [Vitamin D2 (50,000 UNIT)] 50,000 unit PO 2XW [History] Sitagliptin Phosphate [Januvia] 50 mg PO DAILY 11/20/15 [History] Tizanidine HCl [Zanaflex] 8 mg PO Q6H PRN 11/20/15 [History] Promethazine [Phenergan] 25 mg PO Q6HR PRN #10 tablet 11/21/15 [Rx] Gabapentin [Neurontin] 600 mg PO TID 07/04/16 [History] hydrOXYzine HCl [Hydroxyzine HCl] 25 mg PO TID PRN 07/04/16 [History] Cyanocobalamin (Vitamin B-12) [Vitamin B-12] 1,000 mcg SL Q48H 07/05/16 [History ] Acetaminophen with Codeine [Acetaminophen-Cod #4 Tablet] 1 tab PO TID PRN [History] Multivit-Minerals/Folic Acid [Adult Multivitamin Gummies] 200 mcg PO DAILY 07/19 [History] Magnesium Oxide [Mag-Ox] 400 mg PO DAILY #30 tablet 07/27/17 [Rx] Polyethylene Glycol 3350 [MiraLAX] 17 gm PO DAILY powd.pack 07/27/17 [Rx] Potassium Chloride 20 meq PO DAILY #30 tab.er.prt 07/27/17 [Rx] Triamcinolone Acet 0.1% CRM [Kenalog] 1 appl TP BID #1 tube 07/27/17 [Rx] Famotidine [Pepcid] 20 mg PO DAILY 08/04/17 [History] Cefdinir [Omnicef] 300 mg PO BID #8 capsule 08/07/17 [Rx] Cephalexin [Keflex] 500 mg PO DAILY #30 capsule 08/07/17 [Rx] Furosemide [Lasix] 20 mg PO BID #60 tablet 08/07/17 [Rx] Levothyroxine [Synthroid] 100 mcg PO 0630 #30 tablet 08/07/17 [Rx] cloNIDine HCl [CloNIDine HCl] 0.1 mg PO BID #60 tablet 08/07/17 [Rx] predniSONE [PredniSONE] 10 mg PO DAILY 28 Days tablet 08/07/17 [Rx] Allergies/Adverse Reactions: 3 Allergy/AdvReac Type Severity Reaction Status Date / Time morphine Allergy Severe Difficulty Verified 07/24/17 23:59 Breathing pregabalin [From Lyrica] AdvReac Severe Confusion Verified 07/24/17 23:59 prochlorperazine AdvReac Severe Hallucinati Verified 07/24/17 23:59 [From Compazine] ons Cyclobenzaprine AdvReac Intermediate INCREASED Verified 07/24/17 23:59 [From Flexeril] HEARTRATE methocarbamol [From Robaxin] AdvReac Intermediate MIGRAINES Verified 07/24/17 23 :59 fentanyl AdvReac Vomiting Verified 07/24/17 23:59 metoclopramide [From Reglan] AdvReac See Verified 07/24/17 23:59 Comments pioglitazone [From Actos] AdvReac See Verified 07/24/17 23:59 Comments tape Allergy Rash Uncoded 06/19/17 15:53 steroids AdvReac Hypertensio Uncoded 06/19/17 15:53 n Date of admission: 08/06/17 09:28 Primary care physician: PCP NONE - Patient Status Disposition: Home Health Service Condition: Fair Overall status at discharge: patient is progressing back to baseline - Discharge Instructions Follow Up With: NONE,PCP [Primary Care Provider] - (will wait and see what patient d/c plans are) Additional Instructions: Follow-up with primary care physician within the next 7 days. Continue prednisone taper until follow-up with dermatology. Complete 4 more days of cefdinir, start cephalexin once daily after completing doses of cefdinir. Stop Macrobid, chlorthalidone and decrease clonidine dose to 0.1 twice a day only. Start Lasix 20 mg twice a day, may hold blood Lasix if blood pressure is low or becomes dehydrated. Can straight cath if still having urinary retention. Follow up with urology within the next 1-2 weeks. - Diet and Activity Activity: increase activity as tolerated Diet: diabetic diet Hospital course: Ms. 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 Over the last few months the rash in her groin has spread to her legs, back, right chest, hands bilaterally. She has tried over the counter Cortisone, Diflucan, and Triamcionlone with little relief. Patient reports rapidly worsening rash in the past 1 week. Of note, pateint has a h/o Klebsiella and E. coli UTIs in the past and has been taking Macrobid daily since 02/24/17. In the ED, patient met 2 SIRS criteria HR 99 and Lactic acid decreased from 4.2 to 3.7. Patent was hypotensive and left IJ CVC was placed. IVF and Rocephin were started in the ED. Was diagnosed with sepsis secondary to UTI. Urine culture grew mixed oneal unable to be identified. Her blood pressure dropped to the 80s but was able to respond to fluids. The patient was evaluated by dermatology and Solu-Medrol was recommended. Several tests are still pending including ANAs and a skin biopsy that was taken. The patient has completed 4 days of Rocephin, as is stable to be discharged. Also had urinary retention for which a Bella catheter was placed. Lasix was started as her blood pressure improved, has severe lower extremity swelling/ edema. - Time Spent with Patient Total time spent providing and/or coordinating discharge services: Greater than 30 minutes (40 min) - Constitutional Vitals: Temp Pulse Resp BP Pulse Ox 97.4 F L 76 16 106/71 93 08/07/17 03:04 08/07/17 03:31 08/07/17 03:04 08/07/17 03:31 08/07/17 03:04 General appearance: Present: cooperative, mild distress, A&O X 3, pleasant, obese, answers questions appropriately Exam: - Head Head exam: Present: atraumatic, normocephalic - Eye Eye exam: Present: PERRL, conjuntiva pink, sclera anicteric Pupils: Present: PERRL - Neck Neck exam general surgery: Present: supple, trachea midline. Absent: lymphadenopathy - Respiratory Respiratory exam: Present: decreased breath sounds, CTAB. Absent: accessory muscle use, rales, rhonchi, wheezes - Cardiovascular Cardiovascular exam: Present: RRR, +S1, +S2. Absent: diastolic murmur, gallop, rubs, systolic murmur - GI/Abdominal GI/Abdominal exam: Present: distended, normal bowel sounds, soft, no peritoneal signs. Absent: tenderness - Extremities Exam Extremities exam: Present: pedal edema (Severe +3 pitting edema in both lower extremities), warm, radial pulses palpable and symmetrical. Absent: calf tenderness, cyanotic - Neurological Exam Neurological exam: Present: CN II-XII intact, oriented X3, no focal deficits. Absent: pronater drift, facial droop, speech deficit - Skin Skin exam: Present: dry. Absent: intact (Dermatologic erythematous scaly lesions throughout her body mildly improving) Additional comments: Bella catheter in place
[2017-08-07] MEDS: Furosemide 20 MG/2 ML VIAL IVP SCH ×2 (08:25→21:01)
[2017-08-07] MEDS: Aspirin Enteric Coated 81 MG Tablet PO SCH (08:25)
[2017-08-07] MEDS: Cyanocobalamin (B-12) 1,000 MCG TABLET PO SCH (08:25)
[2017-08-07] MEDS: Gabapentin 300 MG CAPSULE PO SCH ×3 (08:25→21:02)
[2017-08-07] MEDS: Multivit/Ca/Min/Fe/FA 1 TAB TABLET PO SCH (08:25)
[2017-08-07] MEDS: Magnesium Oxide 400 MG TABLET PO SCH (08:25)
[2017-08-07] MEDS: Vitamin B Complex/Vit C/Vit E 1 EACH TABLET PO SCH (08:25)
--- NOTE | 2017-08-07 08:29 | Physician Discharge Referral ---
Home Health/Hosp Referral Info Transfer to: Home Health Provider in Charge Post Discharge: PCP - Diagnosis (1) UTI (urinary tract infection) Status: Acute (2) Sepsis Status: Acute (3) Diabetes Status: Chronic (4) History of gastric bypass Status: Acute (5) Spongiotic psoriasiform dermatitis Status: Chronic (6) Hypothyroidism Status: Chronic (7) Anasarca Status: Acute (8) Migraine Status: Acute (9) Cardiomyopathy Status: Resolved - Respiratory Orders Smoking Cessation: Smoking cessation has been advised. For more information, call the [place] Tobacco Quit Line at 8-240-JZAC-NOW. - Diet/Nutrition Diet/Nutrition Orders: No Added Salt (JOSE L) - Services Needed Following services are medically necessary services: Home Health Aide, Physical Therapy, Occupational Therapy Other Treatments: Follow-up with primary care physician within the next 7 days. Continue prednisone taper until follow-up with dermatology. Complete 4 more days of cefdinir, start cephalexin once daily after completing doses of cefdinir. Stop Macrobid, chlorthalidone and decrease clonidine dose to 0.1 twice a day only. Start Lasix 20 mg twice a day, may hold blood Lasix if blood pressure is low or becomes dehydrated. Can straight cath if still having urinary retention. Follow up with urology within the next 1-2 weeks. - Transfer Medications Prescriptions: Cefdinir [Omnicef] 300 mg PO BID #8 capsule Cephalexin [Keflex] 500 mg PO DAILY #30 capsule cloNIDine HCl [CloNIDine HCl] 0.1 mg PO BID #60 tablet Furosemide [Lasix] 20 mg PO BID #60 tablet Levothyroxine [Synthroid] 100 mcg PO 0630 #30 tablet predniSONE [PredniSONE] 10 mg PO DAILY 28 Days tablet Home Medications: Aspirin Enteric Coated [Aspirin EC] 81 mg PO DAILY 05/30/15 [History] Meclizine [Antivert] 12.5 - 25 mg PO BID PRN 05/30/15 [History] Ondansetron [Zofran] 4 mg PO TID PRN 05/30/15 [History] Ergocalciferol (VITAMIN D2) [Vitamin D2 (50,000 UNIT)] 50,000 unit PO 2XW [History] Sitagliptin Phosphate [Januvia] 50 mg PO DAILY 11/20/15 [History] Tizanidine HCl [Zanaflex] 8 mg PO Q6H PRN 11/20/15 [History] Promethazine [Phenergan] 25 mg PO Q6HR PRN #10 tablet 11/21/15 [Rx] Gabapentin [Neurontin] 600 mg PO TID 07/04/16 [History] hydrOXYzine HCl [Hydroxyzine HCl] 25 mg PO TID PRN 07/04/16 [History] Cyanocobalamin (Vitamin B-12) [Vitamin B-12] 1,000 mcg SL Q48H 07/05/16 [History ] Acetaminophen with Codeine [Acetaminophen-Cod #4 Tablet] 1 tab PO TID PRN [History] Multivit-Minerals/Folic Acid [Adult Multivitamin Gummies] 200 mcg PO DAILY 07/19 [History] Magnesium Oxide [Mag-Ox] 400 mg PO DAILY #30 tablet 07/27/17 [Rx] Polyethylene Glycol 3350 [MiraLAX] 17 gm PO DAILY powd.pack 07/27/17 [Rx] Potassium Chloride 20 meq PO DAILY #30 tab.er.prt 07/27/17 [Rx] Triamcinolone Acet 0.1% CRM [Kenalog] 1 appl TP BID #1 tube 07/27/17 [Rx] Famotidine [Pepcid] 20 mg PO DAILY 08/04/17 [History] Cefdinir [Omnicef] 300 mg PO BID #8 capsule 08/07/17 [Rx] Cephalexin [Keflex] 500 mg PO DAILY #30 capsule 08/07/17 [Rx] Furosemide [Lasix] 20 mg PO BID #60 tablet 08/07/17 [Rx] Levothyroxine [Synthroid] 100 mcg PO 0630 #30 tablet 08/07/17 [Rx] cloNIDine HCl [CloNIDine HCl] 0.1 mg PO BID #60 tablet 08/07/17 [Rx] predniSONE [PredniSONE] 10 mg PO DAILY 28 Days tablet 08/07/17 [Rx] Allergies/Adverse Reactions: 3 Allergy/AdvReac Type Severity Reaction Status Date / Time morphine Allergy Severe Difficulty Verified 07/24/17 23:59 Breathing pregabalin [From Lyrica] AdvReac Severe Confusion Verified 07/24/17 23:59 prochlorperazine AdvReac Severe Hallucinati Verified 07/24/17 23:59 [From Compazine] ons Cyclobenzaprine AdvReac Intermediate INCREASED Verified 07/24/17 23:59 [From Flexeril] HEARTRATE methocarbamol [From Robaxin] AdvReac Intermediate MIGRAINES Verified 07/24/17 23 :59 fentanyl AdvReac Vomiting Verified 07/24/17 23:59 metoclopramide [From Reglan] AdvReac See Verified 07/24/17 23:59 Comments pioglitazone [From Actos] AdvReac See Verified 07/24/17 23:59 Comments tape Allergy Rash Uncoded 06/19/17 15:53 steroids AdvReac Hypertensio Uncoded 06/19/17 15:53 n Certification: Further, I certify that my clinical findings support that this patient is homebound (i.e. absences from home require considerable and taxing effort and are for medical reasons or tenriism services or infrequently or short duration when for other reasons) because: Homebound Reason: Patient requires assistance of a person or device to safely leave home Attestation: My signature below is to certify that this patient is under my care and that I, or nurse practitioner, or a physician's orthodontic technician assistant working with me, has a face-to -face encounter with this patient.
[2017-08-07] MEDS: Insulin LISPRO 300 UNITS/3 ML VIAL SQ SCH ×4 (08:56→21:03)
[2017-08-07] MEDS: *HR* OxyCODONE Immed Rel 5 MG TABLET PO PRN ×2 (14:10→21:01)
[2017-08-07] MEDS: Insulin DETEMIR 100 UNIT/ML X5UNITS SQ SCH (21:02)
[2017-08-08] MEDS: *HR* Acetaminophen w/Cod 300-30 mg 1 TAB TABLET PO PRN (01:29)
[2017-08-08] MEDS: tiZANidine 4 MG TABLET PO PRN ×2 (04:00→11:37)
[2017-08-08] MEDS: MethylPREDNISolone 40 MG/ML VIAL IVP SCH (06:25)
[2017-08-08] MEDS: *HR* Heparin 5,000 UNIT/ML VIAL SQ SCH (06:26)
[2017-08-08] MEDS ORDERED: Acetaminophen/Butalbital/CaffeineTABLET PO ONE (07:00)
[2017-08-08 07:35] LABS: Aldolase, Serum 12.4 U/L (1.5-8.1)
[2017-08-08] MEDS: Gabapentin 300 MG CAPSULE PO SCH (08:26)
[2017-08-08] MEDS: Multivit/Ca/Min/Fe/FA 1 TAB TABLET PO SCH (08:27)
[2017-08-08] MEDS: Magnesium Oxide 400 MG TABLET PO SCH (08:27)
[2017-08-08] MEDS: Furosemide 20 MG/2 ML VIAL IVP SCH (08:27)
[2017-08-08] MEDS: Vitamin B Complex/Vit C/Vit E 1 EACH TABLET PO SCH (08:27)
[2017-08-08] MEDS: *HR* OxyCODONE Immed Rel 5 MG TABLET PO PRN (08:27)
[2017-08-08] MEDS: Aspirin Enteric Coated 81 MG Tablet PO SCH (08:27)
[2017-08-08] MEDS: Insulin LISPRO 300 UNITS/3 ML VIAL SQ SCH ×2 (08:29→11:39)
--- NOTE | 2017-08-08 10:31 | Internal Med Progress Note ---
Date of Encounter: 08/08/17 Time of Encounter: 10:29 - Assessment and plan (1) UTI (urinary tract infection) Current Visit: Yes Status: Acute Assessment and plan: Sepsis secondary to UTI Patient with an extensive history of recurrent UTIs, history of Klebsiella and Escherichia coli. -Patient reports daily Macrobid since 02/24/2017 -Urine culture was gossly mixed, unable to interpret. . -Continue ceftriaxone day 5. The patient was evaluated by physical therapy and was recommended to have home health services. The patient was recommended to stop clonidine as well as her blood pressure has been in the low 100s Stable to be discharged, stop chlorthalidone. Follow up with urology. Qualifiers: Urinary tract infection type: acute cystitis Hematuria presence: without hematuria Qualified Code(s): N30.00 - Acute cystitis without hematuria (2) Sepsis Current Visit: Yes Status: Acute Qualifiers: Sepsis type: sepsis due to unspecified organism Qualified Code(s): A41.9 - Sepsis, unspecified organism (3) Diabetes Current Visit: No Status: Chronic Assessment and plan: Continue sliding scale while being in the hospital Qualifiers: Diabetes mellitus type: type 2 Diabetes mellitus complication status: with unspecified complications Diabetes mellitus nursing home insulin use: without intermediate designer use Qualified Code(s): E11.8 - Type 2 diabetes mellitus with unspecified complications (4) History of gastric bypass Current Visit: No Status: Acute (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 -Patient's rash has spread from her groin to her legs back right chest and hands bilaterally. She has been applying topical steroids which have not provided relief. -Follow up dermatology recommendations as outpatient. -Derm had concern for dermatomyositis, but CK is normal ANAs pending Continue prednisone taper, (6) Hypothyroidism Current Visit: Yes Status: Chronic Assessment and plan: Patient's TSH elevated at 7.24. Synthroid 100 g started. Qualifiers: Hypothyroidism type: unspecified Qualified Code(s): E03.9 - Hypothyroidism , unspecified (7) Anasarca Current Visit: Yes Status: Acute Assessment and plan: Patient with diffuse swelling over her entire body. -Patient has poor nutrition with low albumin. Lasix. (8) Migraine Current Visit: No Status: Acute Assessment and plan: History of migraines MRI of the brain showed:Mild amount of nonspecific T2 hyperintense white matter lesions. Differential includes mild chronic small vessel ischemic white matter disease, demyelination, sequela of migraines, or other vasculopathy is. No acute infarct, intracranial hemorrhage, or significant mass effect. Follows up with Dr. Soliman/neurology as outpatient Qualifiers: Migraine type: without aura Status migrainosus presence: without status migrainosus Intractability: not intractable Qualified Code(s): G43.009 - Migraine without aura, not intractable, without status migrainosus (9) Cardiomyopathy Current Visit: No Status: Resolved Assessment and plan: Takotsubo cardiomyopathy with ejection fraction of 30% in 2012. -Echocardiogram in 02/06/2017 reveals LVEF of 60-65%. -Patient reports 25 pound weight gain in the past 2 weeks. -Patient has diffuse swelling over her entire body consistent with anasarca. Qualifiers: Cardiomyopathy type: ischemic Qualified Code(s): I25.5 - Ischemic cardiomyopathy - Subjective Interval history: The patient is stable, able to urinate without any problems after removing the Bella catheter The patient's blood pressure is normal low, complains of pain on both lower extremities from swelling. Denies any chest pain or shortness of breath. Dermatologic lesions seem to be improving. No fevers - Constitutional Vitals: Temp Pulse Resp BP Pulse Ox 97.5 F L 64 16 98/52 94 08/08/17 07:48 08/08/17 07:48 08/08/17 07:48 08/08/17 07:48 08/08/17 07:48 General appearance: Present: cooperative, mild distress, A&O X 3, pleasant, obese, answers questions appropriately Internal Medicine: Result - Labs CBC & Chem 7: 08/07/17 03:38 08/07/17 03:38 - ABG Interpretation ABG results: PT/INR, D-dimer PT 13.0 Seconds (9.4-12.1) H 08/04/17 19:28 - VTE Documentation of Mechanical Device: Graduated compression elastic hosiery Consult Discharge Plan - Plan Additional Instructions: Follow-up with primary care physician within the next 7 days. Continue prednisone taper until follow-up with dermatology. Complete 4 more days of cefdinir, start cephalexin once daily after completing doses of cefdinir. Stop Macrobid, chlorthalidone and decrease clonidine dose to 0.1 twice a day only. Start Lasix 20 mg twice a day, may hold blood Lasix if blood pressure is low or becomes dehydrated. Can straight cath if still having urinary retention. Follow up with urology within the next 1-2 weeks. Referrals: Juanita Villalta MD [Partnered Physician] - 08/30/17 9:40 am Shahriar Bejarano MD [Non-Partnered Physician] - 08/16/17 4:30 pm Prescriptions: Cefdinir [Omnicef] 300 mg PO BID #8 capsule Cephalexin [Keflex] 500 mg PO DAILY #30 capsule cloNIDine HCl [CloNIDine HCl] 0.1 mg PO BID #60 tablet Furosemide [Lasix] 20 mg PO BID #60 tablet Levothyroxine [Synthroid] 100 mcg PO 0630 #30 tablet predniSONE [PredniSONE] 10 mg PO DAILY 28 Days tablet
[2017-08-08 11:23] VITALS: BP 114/78
[2017-08-08] MEDS ORDERED: Furosemide 20 MG/2 ML VIAL IVP SCH (17:00)
[2017-08-08] MEDS ORDERED: predniSONE 20 MG TABLET PO SCH (18:00)
[2017-08-09 12:21] LABS: ANA IgG by ELISA NONE DETECTED (None Detected)
== END 2017-08-08 15:12 | disposition home health service (06) | DRG 872 ==
LOC: EMEROO 12:58 → 2ANU 12:58 → SUATTDRO 22:05 → 2ANU 22:30
PROVIDERS: ADMIT Internal Medicine; ATTEND Internal Medicine

== ENCOUNTER 2018-02-27 12:11 | Observation (INO) ==
[2018-02-27] MEDS ORDERED: Isovue-370 500 ML INFUS..BTL IV ONE (13:03)
[2018-02-27] MEDS ORDERED: GI Cocktail 40 ML EACH PO ONE (13:03)
[2018-02-27] MEDS ORDERED: Ondansetron 4 MG/2 ML VIAL IVP ONE (13:03)
[2018-02-27 13:43] LABS: Basophils % 0.2 %; Eosinophils % 0.1 %; Hematocrit 32.3 % (35.3-44.9); Hemoglobin 10.9 g/dL (11.5-15.4); Immature Granulocytes % 0.3 % (0-4); Lymphocytes # 0.6 K/mcL (0.6-4.6); Lymphocytes % 6.8 %; Mean Corpuscular HGB Conc 33.7 g/dL (31.6-35.5); Mean Platelet Volume 9.1 fL (9.4-12.4); Monocytes # 0.2 K/mcL (0.0-1.3); Monocytes % 2.2 %; Neutrophils # 8.1 K/mcL (1.6-8.9); Platelet Count 162 K/mcL (140-400); Red Blood Count 3.63 M/mcL (3.82-4.97); Red Cell Distribution Width 13.9 % (11.5-14.5); Segmented Neutrophils % 90.4 %
[2018-02-27 13:48] LABS: Prothrombin Time 11.2 Seconds (9.4-12.1)
[2018-02-27 13:51] LABS: Activated Partial Thrombo Time 23.7 Seconds (26.0-36.0)
[2018-02-27 14:02] LABS: BUN/Creatinine Ratio 17 (6-26); Blood Urea Nitrogen 10 mg/dL (6-20); Calcium 9.5 mg/dL (8.6-10.3); Carbon Dioxide 23 mEq/L (23-29); Chloride 108 mEq/L (98-107); Glucose 241 mg/dL (70-105); Osmolality,Calculated 301 (280-300); Potassium 3.9 mEq/L (3.5-5.1); Sodium 142 mEq/L (136-145); eGFR For African Americans > 60 (> 60); eGFR For Non-African Americans > 60 (> 60)
[2018-02-27 14:03] LABS: Troponin I < 0.03 ng/mL (< 0.04)
[2018-02-27] MEDS ORDERED: 0.9 % Sodium Chloride 1,000 ML IVC ONE (14:19)
[2018-02-27] MEDS ORDERED: Haloperidol Lactate 5 MG/ML VIAL IVP ONE (14:51)
--- NOTE | 2018-02-27 15:18 | Emergency Department Note ---
Disposition Clinical Impression: Chest pain, rule out acute myocardial infarction, Hypertensive urgency Vomiting Qualifiers: Vomiting type: unspecified Vomiting Intractability: unspecified Nausea presence : with nausea Qualified Code(s): R11.2 - Nausea with vomiting, unspecified Disposition: Admitted As Inpatient Condition: Fair Referrals: Bruce Sung [Primary Care Provider] - Forms: ED Satisfaction Letter Time of Disposition: 15:30 General Adult HPI - General Chief complaint: ED Chest Pain Stated complaint: non active CP, nausea Time Seen by Provider: 02/27/18 12:14 Source: EMS Mode of arrival: ambulatory Limitations: no limitations Nursing Notes Reviewed: Yes Vital Signs Reviewed: Yes - History of Present Illness HPI Narrative: 48-year-old female presents emergency department for further evaluation of nausea, vomiting. Patient was recently had an evaluation at [facility] emergency department prior to arrival to [facility]. They were unable to obtain IV access to give IV fluids and nausea medications. Patient states that she has pain in her epigastrium that radiates to her throat as well as her left upper extremity. She has a long history of reflux however this feels different because it is "constant" patient states her symptoms have been present and constant for the past 24 hours. She reports associated nausea however she denies diaphoresis. Pain Scale: 7 - Related Data Home Medications Medication Instructions Recorded Confirmed Ondansetron [Zofran] 4 mg PO TID PRN 05/30/15 01/21/18 Ergocalciferol (VITAMIN D2) 50,000 unit PO 2XW 10/24/15 01/02/18 [Vitamin D2 (50,000 UNIT)] Sitagliptin Phosphate [Januvia] 50 mg PO DAILY 11/20/15 01/21/18 Tizanidine HCl [Zanaflex] 8 mg PO Q6H PRN 11/20/15 01/21/18 Gabapentin [Neurontin] 600 mg PO TID 07/04/16 01/02/18 Cyanocobalamin (Vitamin B-12) 1,000 mcg SL Q48H 07/05/16 01/02/18 [Vitamin B-12] Acetaminophen with Codeine 1 tab PO TID PRN 02/05/17 01/02/18 [Acetaminophen-Cod #4 Tablet] Multivit-Minerals/Folic Acid 200 mcg PO DAILY 10/03/17 03/19/18 [Adult Multivitamin Gummies] Famotidine [Pepcid] 20 mg PO DAILY 08/04/17 01/02/18 Dicyclomine [Bentyl] 20 mg PO QID 02/27/18 02/27/18 Lisinopril [Zestril] 5 mg PO DAILY 02/27/18 02/27/18 Previous Rx's Medication Instructions Recorded Promethazine [Phenergan] 25 mg PO Q6HR PRN #10 tablet 11/21/15 Magnesium Oxide [Mag-Ox] 400 mg PO DAILY #30 tablet 07/27/17 Potassium Chloride 20 meq PO DAILY #30 tab.er.prt 07/27/17 Furosemide [Lasix] 20 mg PO BID #60 tablet 08/07/17 Levothyroxine [Synthroid] 100 mcg PO 0630 #30 tablet 08/07/17 Allergies Allergy/AdvReac Type Severity Reaction Status Date / Time morphine Allergy Severe Difficulty Verified 01/02/18 14:32 Breathing pregabalin [From Lyrica] AdvReac Severe Confusion Verified 01/02/18 14:32 prochlorperazine AdvReac Severe Hallucinati Verified 01/02/18 14:32 [From Compazine] ons Cyclobenzaprine AdvReac Intermediate INCREASED Verified 01/02/18 14:32 [From Flexeril] HEARTRATE methocarbamol [From Robaxin] AdvReac Intermediate MIGRAINES Verified 01/02/18 14 :32 fentanyl AdvReac Vomiting Verified 01/02/18 14:32 metoclopramide [From Reglan] AdvReac See Verified 01/02/18 14:32 Comments pioglitazone [From Actos] AdvReac See Verified 01/02/18 14:32 Comments tape Allergy Rash Uncoded 01/02/18 14:32 steroids AdvReac Hypertensio Uncoded 01/02/18 14:32 n Past Medical History - Past Medical History Medical history: Reports: cardiomyopathy, diabetes, fibromyalgia, GERD, hypertension, osteoporosis, pulmonary embolus, thyroid disease Surgical history: Reports: cholecystectomy, colectomy, herniorrhaphy, other, bariatric surgery Psychiatric history: Reports: no psych history TIN CUTTER history: Reports: polycystic ovary syndrome - Social History Smoking Status: Never smoker Smokeless Tobacco Status: No Alcohol use: Reports: rarely Drug use: Reports: none Physical Exam - General Limitations: no limitations General appearance: alert Course Vital Signs Temperature 99.1 F 02/27/18 12:14 Pulse Rate 94 02/27/18 12:14 Respiratory Rate 16 02/27/18 12:14 Blood Pressure 215/109 02/27/18 12:14 O2 Sat by Pulse Oximetry 97 02/27/18 12:14 Temperature 99.1 F 02/27/18 12:14 Pulse Rate 80 02/27/18 14:29 Respiratory Rate 20 02/27/18 14:29 Blood Pressure 222/104 02/27/18 14:30 O2 Sat by Pulse Oximetry 96 02/27/18 14:29 Oxygen Delivery Oxygen Delivery Room Air Medical Decision Making - MDM Narrative Medical decision making narrative: Patient was given lisinopril, multiple anti-medic medications and pain medications however her BP did not improve. Patient will be admitted for hypertensive urgency. Pt given labetolol in the ED for bp - Medical Records Medical records reviewed: Yes I reviewed the patient's medical records. - Lab Data Lab results reviewed: Yes I reviewed the patient's lab results. Result diagrams: 02/27/18 13:13 02/27/18 13:13 Lab Results 02/27/18 02/27/18 02/27/18 Range/Units 12:29 13:03 13:13 WBC 8.9 (4.3-11.1) K/mcL RBC 3.63 L (3.82-4.97) M/mcL Hgb 10.9 L (11.5-15.4) g/dL Hct 32.3 L (35.3-44.9) % MCV 89.0 (83.0-100.0) fL MCH 30.0 (28.0-33.3) pg MCHC 33.7 (31.6-35.5) g/dL RDW 13.9 (11.5-14.5) % Plt Count 162 (140-400) K/mcL MPV 9.1 L (9.4-12.4) fL Immature Gran % 0.3 (0-4) % Seg Neutrophils % 90.4 % Lymphocytes % 6.8 % Monocytes % 2.2 % Eosinophils % 0.1 % Basophils % 0.2 % Neutrophils # 8.1 (1.6-8.9) K/mcL Lymphocytes # 0.6 (0.6-4.6) K/mcL Monocytes # 0.2 (0.0-1.3) K/mcL Eosinophils # 0.0 (0.0-0.6) K/mcL Basophils # 0.0 (0.0-0.2) K/mcL PT 11.2 (9.4-12.1) Seconds INR 1.0 APTT 23.7 L (26.0-36.0) Seconds D-Dimer 432 (0-500) ng/mLFEU Sodium (136-145) mEq/L Potassium (3.5-5.1) mEq/L Chloride (98-107) mEq/L Carbon Dioxide (23-29) mEq/L BUN (6-20) mg/dL Creatinine (0.60-1.20) mg/dL Est GFR ( Amer) (> 60) Est GFR (Non-Af Amer) (> 60) BUN/Creatinine Ratio (6-26) Glucose (70-105) mg/dL POC Glucose 222 H (70-99) mg/dL Calculated Osmolality (280-300) Calcium (8.6-10.3) mg/dL Troponin I (< 0.04) ng/mL 02/27/18 Range/Units 13:13 WBC (4.3-11.1) K/mcL RBC (3.82-4.97) M/mcL Hgb (11.5-15.4) g/dL Hct (35.3-44.9) % MCV (83.0-100.0) fL MCH (28.0-33.3) pg MCHC (31.6-35.5) g/dL RDW (11.5-14.5) % Plt Count (140-400) K/mcL MPV (9.4-12.4) fL Immature Gran % (0-4) % Seg Neutrophils % % Lymphocytes % % Monocytes % % Eosinophils % % Basophils % % Neutrophils # (1.6-8.9) K/mcL Lymphocytes # (0.6-4.6) K/mcL Monocytes # (0.0-1.3) K/mcL Eosinophils # (0.0-0.6) K/mcL Basophils # (0.0-0.2) K/mcL PT (9.4-12.1) Seconds INR APTT (26.0-36.0) Seconds D-Dimer (0-500) ng/mLFEU Sodium 142 (136-145) mEq/L Potassium 3.9 (3.5-5.1) mEq/L Chloride 108 H (98-107) mEq/L Carbon Dioxide 23 (23-29) mEq/L BUN 10 (6-20) mg/dL Creatinine 0.60 (0.60-1.20) mg/dL Est GFR ( Amer) > 60 (> 60) Est GFR (Non-Af Amer) > 60 (> 60) BUN/Creatinine Ratio 17 (6-26) Glucose 241 H (70-105) mg/dL POC Glucose (70-99) mg/dL Calculated Osmolality 301 H (280-300) Calcium 9.5 (8.6-10.3) mg/dL Troponin I < 0.03 (< 0.04) ng/mL - Radiology Data Radiology results reviewed: Yes I reviewed the patient's radiology results. - EKG Data EKG #1 EKG attestation: Yes I reviewed and interpreted this EKG. EKG results narrative: 83 normal sinus rhythm without evidence of STEMI.
[2018-02-27] MEDS ORDERED: Nitroglycerin 0.4 MG TAB.SUBL SL PRN (15:33)
[2018-02-27] MEDS ORDERED: *HR* Labetalol 20 MG/4 ML SYRINGE IVP ONE (15:57)
[2018-02-27] MEDS: Labetalol 200 MG in D5% in Water 250 ML IVC SCH (16:32)
[2018-02-27] MEDS ORDERED: tiZANidine 4 MG TABLET PO STA (16:39)
--- NOTE | 2018-02-27 17:17 | Electrocardiograph Report ---
[facility] Test Date: 2018-02-27 Pat Name: Janett Mcdonald Department: 102 Room: E16 Gender: F Structural Analyst: Edna : 1970 Requested By: Andrés Ozuna Order Number: [id number] Reading MD: Rosas Haynes Measurements Intervals [place] Rate: 83 P: 26 ID: [id number] QRS: 21 QRSD: 97 T: 51 QT: 354 QTc: 394 Interpretive Statements SINUS RHYTHM INTERPRETATION BASED ON A DEFAULT AGE OF 40 YEARS Electronically Signed On 02-27-2018 17:15:21 EDT by Rosas Haynes
--- NOTE | 2018-02-27 18:44 | Internal Med History&Physical ---
Date of Encounter: 02/27/18 Time of Encounter: 18:00 Internal Medicine - H&P: HPI Chief complaint: Epigastric pain Admitted From: Home History of present illness: Patient is a 48-year-old female with past medical history significant for diabetes with peripheral neuropathy, hypothyroid and CHF who presents to the ER due to epigastric pain. Patient describes epigastric pain as sharp and constant which radiates up to the left side of her neck. Patient denies any provoking or relieving factors but does report of associated symptoms of nausea. She decided to come to the ER for evaluation. In the ER, patient was found to have negative cardiac biomarkers 1. Patient was noted to have elevated blood pressures and was started on labetalol drip. Patient does report of a history of uncontrolled blood pressures and currently being worked up as an outpatient by primary care provider. Patient will be admitted to medical surgical floor for ACS rule out and hypertension control. Past Med Surg Social Fam HX - Past Medical History Medical history: cardiomyopathy, diabetes, fibromyalgia, GERD, hypertension, osteoporosis, pulmonary embolus, thyroid disease Psychiatric history: no psych history - Past Surgical History Surgical History: cholecystectomy, colectomy, herniorrhaphy, other, bariatric surgery - Social History Smoking Status: Never smoker Smokeless Tobacco Status: No Alcohol use: rarely Drug use: none - Family History Father Living Status: Hx Family Cardiac Disorders: Yes (HTN) Hx Family Respiratory Disorders: Yes (COPD) Grandfather Hx Family Cardiac Disorders: Yes (HTN, BYPASS) Grandmother Adopted: No Twin of Family Member: Yes, Fraternal Living Status: Still Living Hx Family Cardiac Disorders: Yes (CVA) Hx Family Respiratory Disorders: Yes (father copd, asthma) Hx Family Cancer: Yes (Breast cancer) Hx Family GI Disorders: No Hx Family Endocrine Disorder: Yes (DM and thyroid) Hx Family Neuromuscular Disorders: Yes (CVA) Hx Family Neurologic Disorders: Yes (CVA) Hx Family HEENT Disorders: No Hx Family Autoimmune Disorders: No Internal Medicine - H&P: Meds Ondansetron [Zofran] 4 mg PO TID PRN 05/30/15 [History] Ergocalciferol (VITAMIN D2) [Vitamin D2 (50,000 UNIT)] 50,000 unit PO 2XW [History] Sitagliptin Phosphate [Januvia] 50 mg PO DAILY 11/20/15 [History] Tizanidine HCl [Zanaflex] 8 mg PO Q6H PRN 11/20/15 [History] Promethazine [Phenergan] 25 mg PO Q6HR PRN #10 tablet 11/21/15 [Rx] Gabapentin [Neurontin] 600 mg PO TID 07/04/16 [History] Cyanocobalamin (Vitamin B-12) [Vitamin B-12] 1,000 mcg SL Q48H 07/05/16 [History ] Acetaminophen with Codeine [Acetaminophen-Cod #4 Tablet] 1 tab PO TID PRN [History] Multivit-Minerals/Folic Acid [Adult Multivitamin Gummies] 200 mcg PO DAILY 07/19 [History] Magnesium Oxide [Mag-Ox] 400 mg PO DAILY #30 tablet 07/27/17 [Rx] Potassium Chloride 20 meq PO DAILY #30 tab.er.prt 07/27/17 [Rx] Famotidine [Pepcid] 20 mg PO DAILY 08/04/17 [History] Furosemide [Lasix] 20 mg PO BID #60 tablet 08/07/17 [Rx] Levothyroxine [Synthroid] 100 mcg PO 0630 #30 tablet 08/07/17 [Rx] Dicyclomine [Bentyl] 20 mg PO QID 02/27/18 [History] Lisinopril [Zestril] 5 mg PO DAILY 02/27/18 [History] 3 Allergy/AdvReac Type Severity Reaction Status Date / Time morphine Allergy Severe Difficulty Verified 01/02/18 14:32 Breathing pregabalin [From Lyrica] AdvReac Severe Confusion Verified 01/02/18 14:32 prochlorperazine AdvReac Severe Hallucinati Verified 01/02/18 14:32 [From Compazine] ons Cyclobenzaprine AdvReac Intermediate INCREASED Verified 01/02/18 14:32 [From Flexeril] HEARTRATE methocarbamol [From Robaxin] AdvReac Intermediate MIGRAINES Verified 01/02/18 14 :32 fentanyl AdvReac Vomiting Verified 01/02/18 14:32 metoclopramide [From Reglan] AdvReac See Verified 01/02/18 14:32 Comments pioglitazone [From Actos] AdvReac See Verified 01/02/18 14:32 Comments tape Allergy Rash Uncoded 01/02/18 14:32 steroids AdvReac Hypertensio Uncoded 01/02/18 14:32 n All Systems PM: A 10-system review of systems was performed and is negative for pertinent findings except as documented above in the HPI. - Constitutional Vitals: Temp Pulse Resp BP Pulse Ox 99.1 F 69 16 127/51 96 02/27/18 12:14 02/27/18 17:41 02/27/18 17:41 02/27/18 17:41 02/27/18 17:41 General appearance: Present: A&O X 3, no acute distress - Eye Eye exam: Present: normal appearance - ENT ENT exam: Present: mucous membranes moist - Respiratory Respiratory exam: Present: CTAB. Absent: accessory muscle use, rales, rhonchi, wheezes - Cardiovascular Cardiovascular exam: Present: RRR, +S1, +S2. Absent: diastolic murmur, gallop, rubs, systolic murmur - GI/Abdominal GI/Abdominal exam: Present: soft, tenderness (Epigastric tenderness to palpation ). Absent: distended - Extremities Exam Extremities exam: Absent: pedal edema - Psychiatric Psychiatric exam: Present: normal mood Internal Med - H&P Results - Labs CBC & Chem 7: 02/27/18 13:13 02/27/18 13:13 - Assessment and plan (1) Uncontrolled hypertension Current Visit: Yes Status: Acute Assessment and plan: Patient reports a history of uncontrolled blood pressures currently being worked up as an outpatient by primary care provider Patient's blood pressures now controlled after placed on labetalol drip in the ER Will continue to monitor overnight (2) Abdominal pain Current Visit: No Status: Acute Assessment and plan: Patient with reports of epigastric pain with tenderness to palpation in the epigastric region on exam Will consult GI who will need to be notified in the a.m. on 02/28/18 for evaluation Qualifiers: Abdominal location: upper abdomen, unspecified Qualified Code(s): R10.10 - Upper abdominal pain, unspecified (3) Atypical chest pain Current Visit: No Status: Acute Assessment and plan: Patient reports of epigastric pain that radiates to the left side of her neck. Will continue to follow serial troponins and monitor on telemetry (4) Diabetes Current Visit: No Status: Chronic Assessment and plan: Continue home medications Qualifiers: Diabetes mellitus type: type 2 Diabetes mellitus senior living insulin use: without keno terminal operator use Diabetes mellitus complication status: with unspecified complications Qualified Code(s): E11.8 - Type 2 diabetes mellitus with unspecified complications (5) Hypothyroidism Current Visit: No Status: Chronic Assessment and plan: Continue home medications Qualifiers: Hypothyroidism type: unspecified Qualified Code(s): E03.9 - Hypothyroidism , unspecified (6) DVT prophylaxis Current Visit: Yes Status: Acute Assessment and plan: Subcutaneous heparin - Time Spent With Patient Total time spent is greater than 50% in coordination of care (as documented) at patient's floor/unit and/or counseling patient:
[2018-02-27] MEDS ORDERED: Naloxone 0.4 MG/ML INJ IVP PRN (18:55)
[2018-02-27] MEDS ORDERED: ACETAMINOPHEN WITH CODEINE PO PRN (19:00)
[2018-02-27] MEDS: Furosemide 20 MG TABLET PO SCH (20:28)
[2018-02-27] MEDS: Cyanocobalamin (B-12) 1,000 MCG TABLET PO SCH (20:28)
[2018-02-27] MEDS: Gabapentin 300 MG CAPSULE PO SCH (20:29)
[2018-02-27] MEDS: Ondansetron ODT 4 MG TAB.RAPDIS PO PRN (21:22)
[2018-02-27] MEDS: tiZANidine 4 MG TABLET PO PRN (23:32)
[2018-02-28 01:40] LABS: Basophils % 0.3 %; Eosinophils % 0.3 %; Hematocrit 25.4 % (35.3-44.9); Hemoglobin 8.6 g/dL (11.5-15.4); Immature Granulocytes % 0.4 % (0-4); Lymphocytes # 1.5 K/mcL (0.6-4.6); Lymphocytes % 21.2 %; Mean Corpuscular HGB Conc 33.9 g/dL (31.6-35.5); Mean Corpuscular Hemoglobin 30.4 pg (28.0-33.3); Mean Corpuscular Volume 89.8 fL (83.0-100.0); Mean Platelet Volume 9.2 fL (9.4-12.4); Monocytes # 0.4 K/mcL (0.0-1.3); Neutrophils # 5.2 K/mcL (1.6-8.9); Platelet Count 141 K/mcL (140-400); Red Blood Count 2.83 M/mcL (3.82-4.97); Segmented Neutrophils % 72.8 %
[2018-02-28] MEDS ORDERED: *HR* Dextrose 50 % in Water (Syg) 50 ML SYRINGE IVP PRN (04:01)
[2018-02-28] MEDS ORDERED: D5% in Water 1,000 ML IVC PRN (04:01)
[2018-02-28] MEDS ORDERED: Dextrose Gel 15 GM/37.5 ML TUBE PO PRN ×2 (04:01)
[2018-02-28] MEDS: tiZANidine 4 MG TABLET PO PRN ×3 (05:58→18:46)
[2018-02-28] MEDS: Insulin LISPRO 300 UNITS/3 ML VIAL SQ SCH ×3 (07:29→18:04)
[2018-02-28] MEDS: Gabapentin 300 MG CAPSULE PO SCH ×3 (07:30→20:36)
[2018-02-28] MEDS: Famotidine 20 MG TABLET PO SCH (07:30)
[2018-02-28] MEDS: Magnesium Oxide 400 MG TABLET PO SCH (07:30)
[2018-02-28] MEDS: Furosemide 20 MG TABLET PO SCH ×2 (07:30→17:19)
[2018-02-28] MEDS: Multivit/Ca/Min/Fe/FA 1 TAB TABLET PO SCH (08:03)
[2018-02-28 08:44] LABS: Alanine Aminotransferase 32 Units/L (7-52); Albumin 3.1 g/dL (3.5-5.7); Albumin/Globulin Ratio 1.6 (1.1-2.2); Alkaline Phosphatase 71 Units/L (34-104); Aspartate Amino Transferase 33 Units/L (13-39); BUN/Creatinine Ratio 14 (6-26); Bilirubin,Total 0.3 mg/dL (0.3-1.0); Blood Urea Nitrogen 11 mg/dL (6-20); Calcium 8.4 mg/dL (8.6-10.3); Carbon Dioxide 25 mEq/L (23-29); Chloride 107 mEq/L (98-107); Globulin 1.9 g/dL (2.4-3.5); Glucose 205 mg/dL (70-105); Osmolality,Calculated 295 (280-300); Potassium 3.8 mEq/L (3.5-5.1); Sodium 140 mEq/L (136-145); eGFR For African Americans > 60 (> 60); eGFR For Non-African Americans > 60 (> 60)
[2018-02-28] MEDS ORDERED: SITAGLIPTIN PHOSPHATE 50 MG PO SCH (09:00)
--- NOTE | 2018-02-28 12:35 | Gastroenterology Consult Note ---
<Shy Marcelino - Last Filed: 02/28/18 12:29> Date of Encounter: 02/28/18 Time of Encounter: 09:45 - Assessment and plan (1) Epigastric abdominal pain Status: Acute Assessment and plan: Cardiac workup was negative. She needs EGD to rule out gastritis, esophagitis, hiatal hernia or esophageal spasm as cause for epigastric pain. She has been on pepcid, will likely need PPI on discharge. (2) History of gastric bypass Status: Acute Assessment and plan: complicated abdominal surgery history, request for records sent (3) Vomiting Status: Acute Assessment and plan: Improved on antiemetics, continue IVF. Qualifiers: Vomiting type: unspecified Vomiting Intractability: unspecified Nausea presence: with nausea Qualified Code(s): R11.2 - Nausea with vomiting, unspecified - Time Spent With Patient Total time spent is greater than 50% in coordination of care (as documented) at patient's floor/unit and/or counseling patient: GI History of Present Illness - Data of Consult Patient: new to practice Consult date: 02/28/18 Requesting Physician: Dominique Pathak MD - Consult Narrative Reason for consult: epigastric pain History of present illness: Ms Mcdonald is a 48-year-old female with past medical history significant for diabetes with peripheral neuropathy, hypothyroid and CHF who presents to the ER due to epigastric pain. Patient describes epigastric pain as sharp and constant which radiates up to the left side of her neck. Patient denies any provoking or relieving factors but does report of associated symptoms of nausea.In the ER, patient was found to have negative cardiac biomarkers 1. CT abdomen showed postsurgical changes from Jamil-en-Y gastric bypass with dilated gastric pouch. No bowel obstruction identified. Small hiatal hernia. Prominent mesenteric lymph nodes with subtle stranding within the mesentery which are nonspecific. Hepatic steatosis. No other acute abdominal or pelvic abnormality. She states she has been having symptoms for approximately a year at least once a month, much worse since . She has GERD and is on pepsid with some relief. She had Jamil-en-y in 2005 and in 2013 she had a bowel obstruction that required colon resection and hernia repair. She states she had dysphagia and had relief after esophageal dilation 01/01. EGD 01/01 [facility] Colonoscopy: 2017 NsAIDS: denies anticoagulants: denies Past Med Surg Social Fam HX - Past Medical History Medical history: cardiomyopathy, diabetes, fibromyalgia, GERD, hypertension, osteoporosis, pulmonary embolus, thyroid disease Psychiatric history: anxiety, depression - Past Surgical History Surgical History: cholecystectomy, colectomy, herniorrhaphy, other, bariatric surgery - Social History Smoking Status: Never smoker Smokeless Tobacco Status: No Alcohol use: rarely Drug use: none - Family History Father Living Status: Hx Family Cardiac Disorders: Yes (HTN) Hx Family Respiratory Disorders: Yes (COPD) Grandfather Hx Family Cardiac Disorders: Yes (HTN, BYPASS) Grandmother Adopted: No Twin of Family Member: Yes, Fraternal Living Status: Still Living Hx Family Cardiac Disorders: Yes (CVA) Hx Family Respiratory Disorders: Yes (father copd, asthma) Hx Family Cancer: Yes (Breast cancer) Hx Family GI Disorders: No Hx Family Endocrine Disorder: Yes (DM and thyroid) Hx Family Neuromuscular Disorders: Yes (CVA) Hx Family Neurologic Disorders: Yes (CVA) Hx Family HEENT Disorders: No Hx Family Autoimmune Disorders: No Review of Systems: GI: as per [place] [facility]: denies fever, has some chills EYES: denies yellow discoloration ENT: denies pain with swallowing or difficulty swallowing CARDIO: see HPI RESP: Shortness of breath with exertion : denies change in color of urine NEURO: denies any weakness HEME: Denies any bruising MS: denies joint pain, joint swelling or back pain. DERM: denies rash or itching PSYCH: history of anxiety or depression - Constitutional Vitals: Temp Pulse Resp BP Pulse Ox 98.4 F 71 18 104/60 100 02/28/18 11:09 02/28/18 11:09 02/28/18 11:09 02/28/18 11:09 02/28/18 11:09 Exam: CONSTITUTIONAL:~alert, no acute distress.~HEAD:~normocephalic.~EYES:~no jaundice.~NECK:~no obvious swelling.~HEART:~regular rate and rhythm, no murmurs. ~LUNGS:~bilateral good air entry.~ABDOMEN:~non distended, soft, tender epigastric area, obese, large midline scar well healed, palpation difficult due to body habitus but no masses pulpable, no organomegaly.~RECTAL EXAM:~Deferred.~ EXTREMITIES:~no clubbing, cyanosis or edema.~SKIN:~pallor noted, no stigmata of chronic liver disease.~NEUROLOGIC:~no obvious focal defect.~~~~ Results - Labs CBC & Chem 7: 02/28/18 01:30 02/28/18 08:00 Labs: Last Result Calcium 8.4 mg/dL (8.6-10.3) L 02/28/18 08:00 Troponin I < 0.03 ng/mL (< 0.04) 02/28/18 08:00 Entire Visit Hgb 8.6 g/dL (11.5-15.4) L D 02/28/18 01:30 Hct 25.4 % (35.3-44.9) L 02/28/18 01:30 PT 11.2 Seconds (9.4-12.1) 02/27/18 13:03 Total Bilirubin 0.3 mg/dL (0.3-1.0) 02/28/18 08:00 AST 33 Units/L (13-39) 02/28/18 08:00 ALT 32 Units/L (7-52) 02/28/18 08:00 Lipase 6 Units/L (11-82) L 02/27/18 19:40 - ABG ABG results: PT/INR, D-dimer PT 11.2 Seconds (9.4-12.1) 02/27/18 13:03 D-Dimer 432 ng/mLFEU (0-500) 02/27/18 13:03 Consult Discharge Plan - Plan Instructions: Famotidine (By mouth), Acute Nausea and Vomiting (DC) Additional Instructions: F/up with GI at [facility] as scheduled Referrals: Bruce Sung [Primary Care Provider] - 03/10/18 12:45 pm Prescriptions: Famotidine [Pepcid] 20 mg PO BID #60 tablet <Royer Jain - Last Filed: 03/07/18 18:53> Date of Encounter: 02/28/18 - Time Spent With Patient Total time spent is greater than 50% in coordination of care (as documented) at patient's floor/unit and/or counseling patient: GI History of Present Illness - Data of Consult Requesting Physician: Dominique Pathak MD - Consult Narrative History of present illness: Ms. Mcdonald is a 48 year old female - Constitutional Vitals: Temp Pulse Resp BP Pulse Ox 98.5 F 96 18 80/50 94 03/02/18 11:34 03/02/18 11:57 03/02/18 11:34 03/02/18 11:34 03/02/18 11:34 Results - Labs CBC & Chem 7: 03/01/18 04:00 03/01/18 04:00 Labs: Last Result Calcium 8.5 mg/dL (8.6-10.3) L 03/01/18 04:00 Troponin I < 0.03 ng/mL (< 0.04) 02/28/18 08:00 Entire Visit Hgb 8.5 g/dL (11.5-15.4) L 03/01/18 04:00 Hct 26.2 % (35.3-44.9) L 03/01/18 04:00 PT 11.2 Seconds (9.4-12.1) 02/27/18 13:03 Total Bilirubin 0.3 mg/dL (0.3-1.0) 02/28/18 08:00 AST 33 Units/L (13-39) 02/28/18 08:00 ALT 32 Units/L (7-52) 02/28/18 08:00 Lipase 6 Units/L (11-82) L 02/27/18 19:40 - ABG ABG results: PT/INR, D-dimer PT 11.2 Seconds (9.4-12.1) 02/27/18 13:03 D-Dimer 432 ng/mLFEU (0-500) 02/27/18 13:03 - Attending Attestation Agree with above. I have personally performed a face to face evaluation on this patient. I have reviewed and agree with the care plan. History and Exam by me shows:
[2018-02-28] MEDS: *HR* Acetaminophen w/Cod 300-30 mg 1 TAB TABLET PO PRN ×2 (17:20→22:52)
[2018-02-28] MEDS: Labetalol 200 MG in D5% in Water 250 ML IVC SCH (17:20)
--- NOTE | 2018-02-28 21:45 | Internal Med Progress Note ---
Date of Encounter: 02/28/18 Time of Encounter: 09:30 - Assessment and plan (1) Abdominal pain Current Visit: Yes Status: Acute Assessment and plan: uncertain etiology; h/o- gastric bypass; reports previous EGD by GI in [place] with normal findings; consulted GI, will f/up recommendations; continue PPI; diet as tolerated; Patient is known to our service with multiple hospitalizations with various c/o - hypotension, elevated BP, unspecified pain, Psoriasis, etc; Qualifiers: Abdominal location: upper abdomen, unspecified Qualified Code(s): R10.10 - Upper abdominal pain, unspecified (2) Diabetes Current Visit: Yes Status: Chronic Assessment and plan: blood sugars noted to be elevated; start low dose basal insulin; continue Accucheck blood glucose monitoring with SSI; diabetic diet; Qualifiers: Diabetes mellitus type: type 2 Diabetes mellitus assisted insulin use: without assisted use Diabetes mellitus complication status: with hyperglycemia Qualified Code(s): E11.65 - Type 2 diabetes mellitus with hyperglycemia (3) Hypothyroidism Current Visit: Yes Status: Chronic Qualifiers: Hypothyroidism type: unspecified Qualified Code(s): E03.9 - Hypothyroidism , unspecified (4) Atypical chest pain Current Visit: Yes Status: Ruled-out Assessment and plan: Telemetry and serial Troponins negative; cardiac workup in the past negative; (5) DVT prophylaxis Current Visit: Yes Status: Acute (6) Hypertensive urgency Current Visit: Yes Status: Acute Assessment and plan: was noted to have uncontrolled BP at admission, was started on IV Labetalol drip , which is now held due to borderline hypotension; continue to hold home antihypertensives until BP improves; (7) Fibromyalgia Current Visit: Yes Status: Chronic Assessment and plan: continue home meds; noted to be on multiple analgesics and muscle relaxants; - Time Spent With Patient Total time spent is greater than 50% in coordination of care (as documented) at patient's floor/unit and/or counseling patient: - Subjective Interval history: Reports abdominal and epigastric pain; no retrosternal chest pain, dyspnea, palpitations; reports chronic issues with GI, follows with GI at [facility]; - Constitutional Vitals: Temp Pulse Resp BP Pulse Ox 98.5 F 74 16 113/77 94 02/28/18 18:57 02/28/18 18:57 02/28/18 18:57 02/28/18 18:57 02/28/18 18:57 General appearance: Present: mild distress, A&O X 3, answers questions appropriately - Respiratory Respiratory exam: Present: CTAB. Absent: accessory muscle use, rales, rhonchi, wheezes - Cardiovascular Cardiovascular exam: Present: RRR, +S1, +S2. Absent: diastolic murmur, gallop, rubs, systolic murmur - GI/Abdominal GI/Abdominal exam: Present: normal bowel sounds, soft (tenderness to light palpation in epigastrium and LUQ), no peritoneal signs. Absent: distended, tenderness - Extremities Exam Extremities exam: Present: full ROM, pedal edema, warm, radial pulses palpable and symmetrical. Absent: calf tenderness, cyanotic - Neurological Exam Neurological exam: Present: CN II-XII intact, oriented X3, no focal deficits. Absent: pronater drift, facial droop, speech deficit - Skin Skin exam: Present: dry, intact Internal Medicine: Result - Labs CBC & Chem 7: 02/28/18 01:30 02/28/18 08:00 Labs: Short CBC 02/28/18 Range/Units 01:30 WBC 7.2 (4.3-11.1) K/mcL Hgb 8.6 L D (11.5-15.4) g/dL Hct 25.4 L (35.3-44.9) % Plt Count 141 (140-400) K/mcL Neutrophils # 5.2 (1.6-8.9) K/mcL BMP 02/28/18 08:00 Sodium 140 Potassium 3.8 Chloride 107 Carbon Dioxide 25 BUN 11 Creatinine 0.78 Glucose 205 H Calcium 8.4 L Cardiac Enzymes 02/28/18 02/28/18 Range/Units 01:00 08:00 Troponin I < 0.03 < 0.03 (< 0.04) ng/mL Liver Function 02/28/18 Range/Units 08:00 Total Bilirubin 0.3 (0.3-1.0) mg/dL AST 33 (13-39) Units/L ALT 32 (7-52) Units/L Alkaline Phosphatase 71 (34-104) Units/L Albumin 3.1 L (3.5-5.7) g/dL - ABG Interpretation ABG results: PT/INR, D-dimer PT 11.2 Seconds (9.4-12.1) 02/27/18 13:03 D-Dimer 432 ng/mLFEU (0-500) 02/27/18 13:03 Consult Discharge Plan - Plan Referrals: Bruce Sung [Primary Care Provider] - 03/10/18 12:45 pm
[2018-02-28] MEDS: Insulin DETEMIR 100 UNIT/ML X5UNITS SQ SCH (22:52)
[2018-03-01] MEDS: tiZANidine 4 MG TABLET PO PRN ×4 (00:44→21:41)
[2018-03-01] MEDS: *HR* Acetaminophen w/Cod 300-30 mg 1 TAB TABLET PO PRN ×2 (04:45→21:24)
[2018-03-01 05:07] LABS: Basophils % 0.5 %; Eosinophils # 0.2 K/mcL (0.0-0.6); Eosinophils % 2.7 %; Hematocrit 26.2 % (35.3-44.9); Hemoglobin 8.5 g/dL (11.5-15.4); Immature Granulocytes % 0.3 % (0-4); Lymphocytes # 2.3 K/mcL (0.6-4.6); Lymphocytes % 38.8 %; Mean Corpuscular HGB Conc 32.4 g/dL (31.6-35.5); Mean Corpuscular Hemoglobin 29.6 pg (28.0-33.3); Mean Corpuscular Volume 91.3 fL (83.0-100.0); Mean Platelet Volume 9.3 fL (9.4-12.4); Monocytes # 0.3 K/mcL (0.0-1.3); Monocytes % 4.7 %; Neutrophils # 3.2 K/mcL (1.6-8.9); Nucleated Red Blood Cells 0.3 /100 WBC (0); Platelet Count 131 K/mcL (140-400); Red Blood Count 2.87 M/mcL (3.82-4.97)
[2018-03-01 05:23] LABS: BUN/Creatinine Ratio 18 (6-26); Blood Urea Nitrogen 13 mg/dL (6-20); Calcium 8.5 mg/dL (8.6-10.3); Carbon Dioxide 25 mEq/L (23-29); Chloride 109 mEq/L (98-107); Glucose 100 mg/dL (70-105); Magnesium 1.7 mg/dL (1.6-2.6); Osmolality,Calculated 296 (280-300); Sodium 143 mEq/L (136-145); eGFR For African Americans > 60 (> 60); eGFR For Non-African Americans > 60 (> 60)
[2018-03-01] MEDS: Insulin LISPRO 300 UNITS/3 ML VIAL SQ SCH ×3 (08:00→18:20)
[2018-03-01] MEDS: Ondansetron ODT 4 MG TAB.RAPDIS PO PRN (08:46)
[2018-03-01] MEDS: Gabapentin 300 MG CAPSULE PO SCH ×3 (08:47→20:08)
[2018-03-01] MEDS: Furosemide 20 MG TABLET PO SCH ×2 (08:48→18:13)
[2018-03-01] MEDS: Famotidine 20 MG TABLET PO SCH ×2 (08:48→20:09)
[2018-03-01] MEDS: Insulin DETEMIR 100 UNIT/ML X5UNITS SQ SCH (12:25)
[2018-03-01] MEDS ORDERED: Lidocaine -MPF 2% 2 ML VIAL ONE (12:45)
[2018-03-01] MEDS ORDERED: *HR* Propofol 200 MG/20 ML VIAL IVP ONE (12:45)
[2018-03-01] MEDS ORDERED: *HR* Succinylcholine 200 MG/10 ML VIAL IVP ONE (13:15)
[2018-03-01] MEDS ORDERED: 0.9 % Sodium Chloride 1,000 ML IVC SCH (13:30)
--- NOTE | 2018-03-01 13:35 | Anesthesia Evaluation PreOp ---
Date of Encounter: 03/01/18 Time of Encounter: 13:33 - Past History Planned Operation: EGD Cardiac History: CHF (hx Takosubo's cardiomyopathy twice; most recent TTE (2017 ) EF normal), HTN, Hyperlipidemia Pulmonary History: Former smoker, COPD, DEEPA Dx (mild, occassionally uses CPAP) HAND STAPLER History: Denies Any Significant HX Other Medical History: Diabetes Type II (oral medications only), Thyroid, GERD Anesthesia History: No Prior Anesthetic Complications Alcohol Use: rarely Drug use: none Medications and Allergies Ondansetron [Zofran] 4 mg PO TID PRN 05/30/15 [History] Ergocalciferol (VITAMIN D2) [Vitamin D2 (50,000 UNIT)] 50,000 unit PO 2XW [History] Sitagliptin Phosphate [Januvia] 50 mg PO DAILY 11/20/15 [History] Tizanidine HCl [Zanaflex] 8 mg PO Q6H PRN 11/20/15 [History] Promethazine [Phenergan] 25 mg PO Q6HR PRN #10 tablet 11/21/15 [Rx] Gabapentin [Neurontin] 600 mg PO TID 07/04/16 [History] Cyanocobalamin (Vitamin B-12) [Vitamin B-12] 1,000 mcg SL Q48H 07/05/16 [History ] Acetaminophen with Codeine [Acetaminophen-Cod #4 Tablet] 1 tab PO TID PRN [History] Multivit-Minerals/Folic Acid [Adult Multivitamin Gummies] 200 mcg PO DAILY 07/19 [History] Magnesium Oxide [Mag-Ox] 400 mg PO DAILY #30 tablet 07/27/17 [Rx] Potassium Chloride 20 meq PO DAILY #30 tab.er.prt 07/27/17 [Rx] Famotidine [Pepcid] 20 mg PO DAILY 08/04/17 [History] Furosemide [Lasix] 20 mg PO BID #60 tablet 08/07/17 [Rx] Levothyroxine [Synthroid] 100 mcg PO 0630 #30 tablet 08/07/17 [Rx] Dicyclomine [Bentyl] 20 mg PO QID 02/27/18 [History] Lisinopril [Zestril] 5 mg PO DAILY 02/27/18 [History] 3 Allergy/AdvReac Type Severity Reaction Status Date / Time morphine Allergy Severe Difficulty Verified 01/02/18 14:32 Breathing pregabalin [From Lyrica] AdvReac Severe Confusion Verified 01/02/18 14:32 prochlorperazine AdvReac Severe Hallucinati Verified 01/02/18 14:32 [From Compazine] ons Cyclobenzaprine AdvReac Intermediate INCREASED Verified 01/02/18 14:32 [From Flexeril] HEARTRATE methocarbamol [From Robaxin] AdvReac Intermediate MIGRAINES Verified 01/02/18 14 :32 fentanyl AdvReac Vomiting Verified 01/02/18 14:32 metoclopramide [From Reglan] AdvReac See Verified 01/02/18 14:32 Comments pioglitazone [From Actos] AdvReac See Verified 01/02/18 14:32 Comments tape Allergy Rash Uncoded 01/02/18 14:32 steroids AdvReac Hypertensio Uncoded 01/02/18 14:32 n - Meds/Allergy Pre-op Review Medications Reviewed: Yes Allergies Reviewed: Yes Beta Blockers on Current Med List: No Anesthesia Results - Labs 03/01/18 04:00 03/01/18 04:00 - Imaging EKG: report reviewed, image reviewed (SR) Additional studies: 2017 TTE: EV/EV echocardiogram Impressions: LVEF 65%. Normal LV chamber size, wall thickness and function. Moderate left ventricular diastolic dysfunction. Normal right ventricular structure and function. No evidence of pulmonary hypertension. No significant valvular dysfunction. Anesthesia Exam Last Vital Signs Temp 98.3 F 03/01/18 13:21 Pulse 73 03/01/18 13:21 Resp 18 03/01/18 13:21 BP 122/72 03/01/18 13:21 Pulse Ox 95 03/01/18 13:21 Weight: 77 kg NPO (# of Hours): > 8 hrs - HEENT Pupil (Motor): Pupils equal, EOMI Mallampati: III Teeth: Normal Oral Opening: Greater than 3 - HAND STAPLER LOC: Oriented - Cardiac Rhythm: Regular Murmur: None - Pulmonary Breath Sounds: bilateral Clear Respiratory Effort: Symmetrical Anesthesia Assess/Plan ASA Score: 3 Modified Rusty Scale for Level of Consciousness: Cooperative, oriented, and tranquil Anesthetic Plan: MAC Monitoring Plan: Standard Monitors Recovery Plan: PACU
[2018-03-01] MEDS: Lactulose Oral Soln 20 GM/30 ML UDC PO SCH ×2 (15:38→20:09)
[2018-03-01] MEDS: *HR* SitaGLIPtin 25 MG TABLET PO SCH (15:39)
[2018-03-01] MEDS: Multivit/Ca/Min/Fe/FA 1 TAB TABLET PO SCH (15:39)
[2018-03-01] MEDS: Magnesium Oxide 400 MG TABLET PO SCH (15:39)
--- NOTE | 2018-03-01 17:14 | Internal Med Progress Note ---
Date of Encounter: 03/01/18 Time of Encounter: 17:13 - Assessment and plan (1) Abdominal pain Current Visit: Yes Status: Acute Assessment and plan: GI consulted, underwent EGD, shows reflux esophagitis and gastritis; no active bleeding; will increase Pepcid to BID; diet as tolerated; Qualifiers: Abdominal location: upper abdomen, unspecified Qualified Code(s): R10.10 - Upper abdominal pain, unspecified (2) Diabetes Current Visit: Yes Status: Chronic Assessment and plan: noted to have fluctuating blood sugars with low FBS; hold basal insulin for now and continue Accucheck blood glucose monitoring with SSI; diabetic diet as tolerated; Qualifiers: Diabetes mellitus type: type 2 Diabetes mellitus longterm insulin use: without longterm use Diabetes mellitus complication status: with hyperglycemia Qualified Code(s): E11.65 - Type 2 diabetes mellitus with hyperglycemia (3) Hypothyroidism Current Visit: Yes Status: Chronic Qualifiers: Hypothyroidism type: unspecified Qualified Code(s): E03.9 - Hypothyroidism , unspecified (4) Atypical chest pain Current Visit: Yes Status: Ruled-out Assessment and plan: TElemetry strips showed ST elevation but repeat EKG showed NSR with repolarization abnormalities; continue to monitor; (5) DVT prophylaxis Current Visit: Yes Status: Acute (6) Hypertensive urgency Current Visit: Yes Status: Acute Assessment and plan: patient is noted to have labile BP, fluctuating between 200s to 70s systolic; she had SBP in 200s after EGD, but she received 10mg IV Hydralazine and BP dropped to SBP 80s; will hold off on IV meds at this time and continue to monitor BP closely; follows with PCP as OP for BP control and she has been having chronic issues with this; had renal U/S and renal arterial Doppler U/S in the past which were normal; (7) Fibromyalgia Current Visit: Yes Status: Chronic (8) Esophagitis Current Visit: Yes Status: Chronic Assessment and plan: plan as above; - Time Spent With Patient Total time spent is greater than 50% in coordination of care (as documented) at patient's floor/unit and/or counseling patient: - Subjective Interval history: Continues to have some abdominal pain; noted to be lying in bed comfortably, looking at her phone; denies chest pain, shortness of breath, palpitations; awaiting EGD; - Constitutional Vitals: Temp Pulse Resp BP Pulse Ox 98.9 F 71 18 80/40 97 03/01/18 15:53 03/01/18 16:28 03/01/18 15:53 03/01/18 16:30 03/01/18 16:28 General appearance: Present: A&O X 3, answers questions appropriately - Respiratory Respiratory exam: Present: CTAB. Absent: accessory muscle use, rales, rhonchi, wheezes - Cardiovascular Cardiovascular exam: Present: RRR, +S1, +S2. Absent: diastolic murmur, gallop, rubs, systolic murmur - GI/Abdominal GI/Abdominal exam: Present: normal bowel sounds, soft (tenderness to deep palpation in epigastrium and LUQ), no peritoneal signs. Absent: distended, tenderness - Extremities Exam Extremities exam: Present: full ROM, pedal edema, warm, radial pulses palpable and symmetrical. Absent: calf tenderness, cyanotic - Neurological Exam Neurological exam: Present: CN II-XII intact, oriented X3, no focal deficits. Absent: pronater drift, facial droop, speech deficit Internal Medicine: Result - Labs CBC & Chem 7: 03/01/18 04:00 03/01/18 04:00 Labs: Short CBC 03/01/18 Range/Units 04:00 WBC 6.0 (4.3-11.1) K/mcL Hgb 8.5 L (11.5-15.4) g/dL Hct 26.2 L (35.3-44.9) % Plt Count 131 L (140-400) K/mcL Neutrophils # 3.2 (1.6-8.9) K/mcL BMP 03/01/18 04:00 Sodium 143 Potassium 4.0 Chloride 109 H Carbon Dioxide 25 BUN 13 Creatinine 0.71 Glucose 100 Calcium 8.5 L - ABG Interpretation ABG results: PT/INR, D-dimer PT 11.2 Seconds (9.4-12.1) 02/27/18 13:03 D-Dimer 432 ng/mLFEU (0-500) 02/27/18 13:03 Consult Discharge Plan - Plan Referrals: Bruce Sung [Primary Care Provider] - 03/10/18 12:45 pm
[2018-03-01] MEDS: Cyanocobalamin (B-12) 1,000 MCG TABLET PO SCH (20:09)
[2018-03-02] MEDS: tiZANidine 4 MG TABLET PO PRN ×2 (04:21→10:36)
[2018-03-02] MEDS: *HR* Acetaminophen w/Cod 300-30 mg 1 TAB TABLET PO PRN ×2 (04:24→10:36)
[2018-03-02] MEDS: Magnesium Oxide 400 MG TABLET PO SCH (08:00)
[2018-03-02] MEDS: Gabapentin 300 MG CAPSULE PO SCH (08:00)
[2018-03-02] MEDS: Famotidine 20 MG TABLET PO SCH (08:00)
[2018-03-02] MEDS: Lactulose Oral Soln 20 GM/30 ML UDC PO SCH (08:00)
[2018-03-02] MEDS: Multivit/Ca/Min/Fe/FA 1 TAB TABLET PO SCH (08:00)
[2018-03-02] MEDS: Furosemide 20 MG TABLET PO SCH (08:00)
[2018-03-02] MEDS: *HR* SitaGLIPtin 25 MG TABLET PO SCH (08:00)
[2018-03-02] MEDS: Insulin LISPRO 300 UNITS/3 ML VIAL SQ SCH ×2 (08:01→11:49)
[2018-03-02] MEDS: Ondansetron ODT 4 MG TAB.RAPDIS PO PRN (08:03)
--- NOTE | 2018-03-02 10:03 | Discharge Summary ---
- NOTES TO OUTPATIENT PROVIDER Notes to Outpatient Provider: widely fluctuating BP; Orders not resulted at time of discharge: Pending orders 03/01/18 14:08 Surgical Pathology [PTH] Routine Date of Encounter: 03/02/18 Time of Encounter: 10:03 - Discharge Diagnosis (1) Abdominal pain Priority: Primary Status: Acute Qualifiers: Abdominal location: upper abdomen, unspecified Qualified Code(s): R10.10 - Upper abdominal pain, unspecified (2) Diabetes Priority: Secondary Status: Chronic Qualifiers: Diabetes mellitus type: type 2 Diabetes mellitus terminal gauger insulin use: without senior living use Diabetes mellitus complication status: with hyperglycemia Qualified Code(s): E11.65 - Type 2 diabetes mellitus with hyperglycemia (3) Hypothyroidism Priority: Secondary Status: Chronic Qualifiers: Hypothyroidism type: unspecified Qualified Code(s): E03.9 - Hypothyroidism , unspecified (4) Atypical chest pain Priority: Primary Status: Ruled-out (5) Hypertensive urgency Priority: Primary Status: Acute (6) Fibromyalgia Priority: Secondary Status: Chronic (7) Esophagitis Priority: Primary () Status: Chronic Hospital course: Ms. Mcdonald is a 48 year old female with the above medical problems and multiple recurrent hospitalizations, was admitted with chest pain and epigastric /abdominal pain .SHe was noted to have hypertensive urgency and was started on IV Labetalol drip initially and later her home PO meds were resumed. Cardiac enzymes were normal, Telemetry monitoring showed mild ST elevations but EKG showed NSR with repolarization abnormalities. GI was consulted for epigastric and upper abdominal pain and she underwent EGD which showed reflux esophagitis and gastritis at anastomosis site, no bleeding. Pepcid is being increased to twice daily. She is noted to have fluctuating BP with acute drop with IV antihypertensives and related to her multiple pain meds and muscle relaxants. She is aware of this which is a chronic issue, reports her PCP is trying to regularize BP. Discharge discussed with: patient, family - Time Spent with Patient Total time spent providing and/or coordinating discharge services: Greater than 30 minutes (40 min) - Discharge Medications Prescriptions: Famotidine [Pepcid] 20 mg PO BID #60 tablet Home Medications: Ondansetron [Zofran] 4 mg PO TID PRN 05/30/15 [History] Ergocalciferol (VITAMIN D2) [Vitamin D2 (50,000 UNIT)] 50,000 unit PO 2XW [History] Sitagliptin Phosphate [Januvia] 50 mg PO DAILY 11/20/15 [History] Tizanidine HCl [Zanaflex] 8 mg PO Q6H PRN 11/20/15 [History] Promethazine [Phenergan] 25 mg PO Q6HR PRN #10 tablet 11/21/15 [Rx] Gabapentin [Neurontin] 600 mg PO TID 07/04/16 [History] Cyanocobalamin (Vitamin B-12) [Vitamin B-12] 1,000 mcg SL Q48H 07/05/16 [History ] Acetaminophen with Codeine [Acetaminophen-Cod #4 Tablet] 1 tab PO TID PRN [History] Multivit-Minerals/Folic Acid [Adult Multivitamin Gummies] 200 mcg PO DAILY 07/19 [History] Magnesium Oxide [Mag-Ox] 400 mg PO DAILY #30 tablet 07/27/17 [Rx] Potassium Chloride 20 meq PO DAILY #30 tab.er.prt 07/27/17 [Rx] Furosemide [Lasix] 20 mg PO BID #60 tablet 08/07/17 [Rx] Levothyroxine [Synthroid] 100 mcg PO 0630 #30 tablet 08/07/17 [Rx] Dicyclomine [Bentyl] 20 mg PO QID 02/27/18 [History] Lisinopril [Zestril] 5 mg PO DAILY 02/27/18 [History] Famotidine [Pepcid] 20 mg PO BID #60 tablet 03/02/18 [Rx] Allergies/Adverse Reactions: 3 Allergy/AdvReac Type Severity Reaction Status Date / Time morphine Allergy Severe Difficulty Verified 01/02/18 14:32 Breathing pregabalin [From Lyrica] AdvReac Severe Confusion Verified 01/02/18 14:32 prochlorperazine AdvReac Severe Hallucinati Verified 01/02/18 14:32 [From Compazine] ons Cyclobenzaprine AdvReac Intermediate INCREASED Verified 01/02/18 14:32 [From Flexeril] HEARTRATE methocarbamol [From Robaxin] AdvReac Intermediate MIGRAINES Verified 01/02/18 14 :32 fentanyl AdvReac Vomiting Verified 01/02/18 14:32 metoclopramide [From Reglan] AdvReac See Verified 01/02/18 14:32 Comments pioglitazone [From Actos] AdvReac See Verified 01/02/18 14:32 Comments tape Allergy Rash Uncoded 01/02/18 14:32 steroids AdvReac Hypertensio Uncoded 01/02/18 14:32 n Date of admission: 02/27/18 17:12 Primary care physician: Bruce Sung Consults: 02/27/18 18:57 Consult to Gastroenterology [CONS] Routine Consulting Provider: Gastroenterology Laurie Reason for Consult: Epigastric pain Call Completed: No 02/27/18 20:57 Consult to Nutrition [CONS] Routine Comment: Consulting Provider: NUTRITION Reason for Dietary Consult: PO Supplementation Discharging clinician: Dominique Pathak Anticipated date of discharge: 03/02/18 - Constitutional Vitals: Temp Pulse Resp BP Pulse Ox 97.9 F 55 20 94/52 97 03/02/18 07:39 03/02/18 08:13 03/02/18 07:39 03/02/18 07:39 03/02/18 07:39 General appearance: Present: A&O X 3, answers questions appropriately - Cardiovascular Cardiovascular exam: Present: RRR, +S1, +S2. Absent: diastolic murmur, gallop, rubs, systolic murmur - Patient Status Disposition: Home, Self-Care Condition: Fair Functional capacity at discharge: independent ambulation Overall status at discharge: patient is progressing back to baseline - Discharge Instructions Instructions: Famotidine (By mouth), Acute Nausea and Vomiting (DC) Follow Up With: Bruce Sung [Primary Care Provider] - 03/10/18 12:45 pm Additional Instructions: F/up with GI at [facility] as scheduled - Diet and Activity Activity: resume usual activities as tolerated Diet: diabetic diet, low fat, low cholesterol, low salt diet
[2018-03-02 11:39] VITALS: BP 80/50
--- NOTE | 2018-03-03 22:49 | Electrocardiograph Report ---
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
== END 2018-03-02 14:15 | disposition home or self-care (01) ==
LOC: EMEROO 12:11 → 2NENU 12:11 → SUATTDRO 17:12 → 2NNU 17:40
PROVIDERS: ADMIT Hospitalist; ATTEND Internal Medicine
PROC: ENDOEBX (2018-03-01 14:00)